=== PATIENT | male | born 1945 | race Caucasian/White ===

== ENCOUNTER 2024-05-10 11:57 | Inpatient (IN) ==
[2024-05-10 12:43] LABS: Basophils # (auto) 0.05 K/uL (0.00-0.20); Basophils % (auto) 0.7 %; Eosinophils % (auto) 7.1 %; Hematocrit (blood only) 46.5 % (42.0-52.0); Hemoglobin 14.9 g/dl (14.0-18.0); Immature Granulocytes # (auto) 0.02 K/uL (0.01-0.20); Immature Granulocytes % (auto) 0.3 %; Lymphocytes # (auto) 1.38 K/uL (1.20-3.40); Lymphocytes % (auto) 19.6 %; Mean Corpuscular Hemoglobin 29.5 pg (25.0-34.0); Mean Corpuscular Volume 92.1 fL (80.0-100.0); Mean Platelet Volume 10.1 fL (9.4-12.4); Monocytes # (auto) 1.27 K/uL (0.11-0.59); Neutrophils # (auto) 3.83 K/uL (1.40-6.50); Neutrophils % (auto) 54.3 %; Platelet Count 183 K/uL (130-400); RDW Coefficient of Variation 14.7 % (11.5-14.5); RDW Standard Deviation 50.4 fL (36.4-46.3); Red Blood Count 5.05 M/uL (4.70-6.10); White Blood Count 7.05 K/ul (4.8-10.8)
--- NOTE | 2024-05-10 12:47 | Emergency Department Note ---
History of Present Illness General Chief complaint: Unable to Void Stated complaint: CONFUSION Time Seen by Provider: 05/10/24 12:24 History of Present Illness This is a 79-year-old male that presents to the emergency department accompanied by daughter referred by palliative medicine with complaints of "confusion". The patient as well as daughter at bedside provide history as well as history obtained through reviewing palliative care visit from earlier today. Patient appears to have increased confusion/altered mental status beginning this past Friday. Daughter notes patient lives alone. He manages his own medicine but she often will check and notes that as of recent there will be medicine that should have been taking that is still in the pillbox but also is concerned that patient may be taking some nighttime medicine during the day and daytime during the night. It was noted that the patient has been saying things to daughter at bedside that the daughter notes normally he would not say. Patient is on oral analgesia noting his underlying cancer and pain. As I was walking to the examination room RN noted that the patient's blood pressure was 80/60 and I presented to bedside and recheck was noted to be 94/66. Patient denies any pain at the present time. Home Medications Medication Instructions Recorded Confirmed Type metoprolol succinate 100 mg 100 mg PO QAM 01/12/24 05/10/24 History tablet,extended release 24 hr polyethylene glycol 3350 17 17 g PO QAM 01/12/24 05/10/24 History gram/dose oral powder tamsulosin 0.4 mg capsule 0.4 mg PO BID 01/12/24 05/10/24 History torsemide 10 mg tablet 10 mg PO DAILY PRN Weight Gain 01/12/24 05/10/24 History tramadol 50 mg tablet 50 mg PO UD PRN Pain 01/12/24 05/10/24 History valsartan 160 mg tablet 80 mg PO BID 01/12/24 05/10/24 History ascorbic acid (vitamin C) 1,000 mg 1 g PO QAM 01/14/24 05/10/24 History tablet (Vitamin C) aspirin 81 mg tablet,delayed 81 mg PO QAM 01/14/24 05/10/24 History release cholecalciferol (vitamin D3) 50 50 mcg PO QAM 01/14/24 05/10/24 History mcg (2,000 unit) capsule (Vitamin D3) metformin 500 mg tablet 500 mg PO BID 01/14/24 05/10/24 History mineral oil-hydrophil petrolat 1 applic topical UD PRN catheter 01/14/24 05/10/24 History topical ointment area oxybutynin chloride 5 mg 5 mg PO DAILY #30 tabs 03/29/24 05/10/24 Rx tablet,extended release 24 hr lidocaine 5 % topical ointment 1 applic topical TID PRN pain #30 04/02/24 05/10/24 Rx grams oxycodone 10 mg tablet,crush 10 mg PO Q12H cancer pain 1 month 04/29/24 05/10/24 Rx resistant,extended release 12 hr #60 tabs (OxyContin) oxycodone 5 mg tablet 5 mg PO .Q4-6H PRN Pain 05/10/24 05/10/24 History Allergies Allergy/AdvReac Type Severity Reaction Status Date / Time carvedilol [From Coreg] Allergy Unknown pt not sure Verified 03/26/24 07:05 ezetimibe [From Zetia] Allergy Unknown muscle Verified 03/26/24 07:05 aches fluvastatin Allergy Unknown muscle Verified 03/26/24 07:05 aches gemfibrozil Allergy Unknown muscle Verified 03/26/24 07:05 aches pravastatin Allergy Unknown muscle Verified 03/26/24 07:05 aches simvastatin Allergy Unknown muscle Verified 03/26/24 07:05 aches sulfamethoxazole Allergy Unknown pt not sure Verified 03/26/24 07:05 [From Bactrim] trimethoprim [From Bactrim] Allergy Unknown pt not sure Verified 03/26/24 07:05 Past Med/Surg History Problem List (Updated 05/10/24 @ 21:42 by Ahmet Kearns PA-C) DM2 (diabetes mellitus, type 2) UTI (urinary tract infection) (Acute) Confusion (Acute) Palliative care by specialist Cancer related pain 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 Inguinal lymphadenopathy Penile cancer Cancer Urethral stricture Medical History History of pulmonary embolism Hx MRSA infection (12/2023) foot ulcers, treated w/ Vanco at [facility] Hx of sepsis (01/18/24) admitted at [facility] w/ sepsis from foot ulcers Hx of diabetic foot ulcer (12/2023) right and left big toe; in process of healing, seeing [facility] wound clinic Cirrhosis 12/17/2023 Ischemic cardiomyopathy patient declines ICD, follows with [facility] Diabetes mellitus NIDDM History of COVID-19 (~2021) Neuropathy Hospice care patient for past 2 yrs. Kidney disease unknown details Ulloa catheter in place History of UTI multiple Penile cancer dx 2021 Sleep apnea suspected/sleep study yrs ago/oxygen recommended pt declined. Shortness of breath mostly at night. Poor historian Coronary artery disease 1997: LAD 70, LCX OK, RCA 90, failed balloon angioplasty; NSTEMI 2017, patient declined cath; per [facility] records History of AR (myocardial infarction) 4 or 5/last one a few yrs ago. Surgical History History of eyelid surgery History of urologic surgery multiple on penis. most recent in office procedure december 2023. History of cardiac cath hx x 1 attempted/unsuccessful. sx was recommended "told never would live through it" Social History Smoking Status: Former smoker Second Hand Exposure: No; Do You Dip or Chew Tobacco: No; Hx Alcohol Use: No Hx Substance Use: No Preferred Language: Cook Islander Communication Ability: Effective Data Center Consultant Required: No Beliefs That Will Affect Care: None Current Living Situation: Alone Other Information That Helps Us Care for You: No Feels Safe at Home: Yes Safety Concerns: Feels Safe At This Time Assistive Devices: Cane, Denture - Upper, Denture - Lower and Glasses Review of Systems A total of 10 systems reviewed and were otherwise negative Physical Exam Vital Signs Vital Signs - 24 hr 05/10/24 11:59 05/10/24 12:24 05/10/24 12:36 Temperature 36.3 C L Temperature Source Temporal Artery Scan Pulse Rate 84 62 Pulse Rate [Apical] Pulse Rate from SpO2 Sensor 61 Pulse Rhythm Regular Pulse Rhythm [Apical] Pulse Strength Normal Pulse Strength [Apical] Respiratory Rate 20 19 Respiratory Effort / Characteristics Non-Labored Spontaneous Respiratory Depth Normal Respiratory Pattern Blood Pressure 94/35 L 85/70 L 126/60 Blood Pressure [Left Arm] Blood Pressure Mean 54 74 82 Blood Pressure Mean [Left Arm] Blood Pressure Position [Left Arm] Pulse Oximetry 95 95 Oxygen Delivery Method Room Air Room Air Sepsis Recent Fever Within 48 Hours No Sepsis New/Unexplained Change in Mental Status N/A Sepsis Action Taken by Nursing No Action Required 05/10/24 12:45 05/10/24 12:49 05/10/24 12:50 Temperature Temperature Source Pulse Rate 67 67 70 Pulse Rate [Apical] Pulse Rate from SpO2 Sensor 69 Pulse Rhythm Irregular Pulse Rhythm [Apical] Pulse Strength Pulse Strength [Apical] Respiratory Rate 24 16 Respiratory Effort / Characteristics Respiratory Depth Respiratory Pattern Blood Pressure 94/66 L Blood Pressure [Left Arm] Blood Pressure Mean 75 Blood Pressure Mean [Left Arm] Blood Pressure Position [Left Arm] Pulse Oximetry 93 93 Oxygen Delivery Method Room Air Room Air Sepsis Recent Fever Within 48 Hours Sepsis New/Unexplained Change in Mental Status Sepsis Action Taken by Nursing 05/10/24 13:33 05/10/24 13:45 05/10/24 14:41 Temperature Temperature Source Pulse Rate 68 62 Pulse Rate [Apical] 65 Pulse Rate from SpO2 Sensor 73 67 Pulse Rhythm Pulse Rhythm [Apical] Irregular Pulse Strength Pulse Strength [Apical] Normal Respiratory Rate 21 24 16 Respiratory Effort / Characteristics Non-Labored Spontaneous Respiratory Depth Normal Respiratory Pattern Regular Blood Pressure 108/72 120/73 Blood Pressure [Left Arm] 115/81 Blood Pressure Mean 84 88 Blood Pressure Mean [Left Arm] 92 Blood Pressure Position [Left Arm] Sitting Pulse Oximetry 94 95 98 Oxygen Delivery Method Room Air Room Air Room Air Sepsis Recent Fever Within 48 Hours Sepsis New/Unexplained Change in Mental Status Sepsis Action Taken by Nursing 05/10/24 16:33 Temperature Temperature Source Pulse Rate Pulse Rate [Apical] 83 Pulse Rate from SpO2 Sensor Pulse Rhythm Pulse Rhythm [Apical] Pulse Strength Pulse Strength [Apical] Respiratory Rate 18 Respiratory Effort / Characteristics Non-Labored Respiratory Depth Normal Respiratory Pattern Regular Blood Pressure Blood Pressure [Left Arm] 128/74 Blood Pressure Mean Blood Pressure Mean [Left Arm] 92 Blood Pressure Position [Left Arm] Pulse Oximetry 98 Oxygen Delivery Method Room Air Sepsis Recent Fever Within 48 Hours Sepsis New/Unexplained Change in Mental Status Sepsis Action Taken by Nursing VITAL SIGNS - Vital signs and nursing notes were reviewed. Borderline low BP, otherwise stable. GENERAL - 79-year-old male appearing his stated age who is in no acute distress. Communicates well with provider and answers questions appropriately. SKIN - Without rashes. HEAD - NC/AT. EYES - PERRL with EOMI bilaterally. Sclera anicteric. EARS - No deformities of external structures noted on gross examination bilaterally. NOSE - Midline and without cyanosis. No epistaxis or purulent drainage noted. MOUTH/OROPHARYNX - Without perioral cyanosis. NECK - Neck with FROM. No nuchal rigidity. LUNGS - Chest wall symmetric without accessory muscle use, intercostals retractions, or central cyanosis. Normal vesicular breath sounds CTA B/L. No wheezes, rales, or rhonchi appreciated. CARDIAC - IRR ABDOMEN - Abdominal contour normal without pulsations or visible masses. BS normoactive all four quadrants. No tenderness, palpable masses, hepatosplenomegaly, or ascites noted. Suprapubic catheter noted with a small amount of purulence at the insertion site. EXTREMITIES - No clubbing or peripheral cyanosis. +5/5 strength noted in UE/LE bilaterally. NEUROLOGIC - Cranial nerves II through XII grossly intact. PSYCH - A&O, and cooperates fully with examiner. Pt is very pleasant and interacts well with examiner. Course Administered Medications Heparin Sodium (Porcine) (Heparin Sod 5,000 Unit/0.5 Ml Vial) 5,000 units SQ Q12 BERENICE Stop: 06/09/24 20:59 Last Admin: 05/10/24 20:56 Dose: 5,000 units Documented By: HERMILA Insulin Aspart (Insulin Aspart Per Unit Charge) 0 units SC ACHS BERENICE Stop: 06/09/24 16:29 Last Admin: 05/10/24 20:56 Dose: Not Given Documented By: Admin: 05/10/24 19:02 Dose: Not Given Documented By: RRR Lidocaine (Lidocaine 5% Oint 30 Gm Tube) 1 appln TOP TID PRN PRN Reason: pain Stop: 06/09/24 18:44 Last Admin: 05/10/24 21:10 Dose: 1 appln Documented By: HERMILA Oxycodone HCl (Oxycodone Hcl 10 Mg Tabcr (Oxycontin)) 10 mg PO Q12H BERENICE Stop: 05/24/24 20:59 Last Admin: 05/10/24 21:06 Dose: 10 mg Documented By: DN Tamsulosin HCl (Tamsulosin Hcl 0.4 Mg Cap) 0.4 mg PO BID BERENICE Stop: 06/09/24 20:59 Last Admin: 05/10/24 20:57 Dose: 0.4 mg Documented By: DN Discontinued Medications Sodium Chloride (Nss) 1,000 mls @ 500 mls/hr IV .Q2H BERENICE Stop: 05/10/24 14:59 Last Infusion: 05/10/24 14:57 Dose: Infused Documented By: Admin: 05/10/24 12:56 Dose: 500 mls/hr Documented By: CHAPIS Cefepime HCl (Maxipime) 2,000 mg in 20 mls @ 5 mls/min IV NOW STA; Protocol Stop: 05/10/24 14:47 Last Admin: 05/10/24 14:50 Dose: 5 mls/min Documented By: JILLIAN Vancomycin HCl 2,250 mg/ (Sodium Chloride) 545 mls @ 200 mls/hr IV NOW ONE Stop: 05/10/24 21:28 Last Admin: 05/10/24 20:57 Dose: 200 mls/hr Documented By: HERMILA Medical Decision Making Laboratory Data 05/10/24 12:14 05/10/24 12:14 Lab Results 05/10/24 05/10/24 05/10/24 Range/Units 12:14 12:53 12:57 WBC 7.05 (4.8-10.8) K/ul RBC 5.05 (4.70-6.10) M/uL Hgb 14.9 (14.0-18.0) g/dl Hct 46.5 (42.0-52.0) % MCV 92.1 (80.0-100.0) fL MCH 29.5 (25.0-34.0) pg MCHC 32.0 (32.0-36.0) g/dL RDW Std Deviation 50.4 H (36.4-46.3) fL RDW Coeff of Manuel 14.7 H (11.5-14.5) % Plt Count 183 (130-400) K/uL MPV 10.1 (9.4-12.4) fL Immature Gran % (Auto) 0.3 % Neut % (Auto) 54.3 % Lymph % (Auto) 19.6 % [place] % (Auto) 18.0 % Eos % (Auto) 7.1 % Baso % (Auto) 0.7 % Neut # (Auto) 3.83 (1.40-6.50) K/uL Lymph # (Auto) 1.38 (1.20-3.40) K/uL [place] # (Auto) 1.27 H (0.11-0.59) K/uL Eos # (Auto) 0.50 (0.00-0.50) K/uL Baso # (Auto) 0.05 (0.00-0.20) K/uL Immature Gran # (Auto) 0.02 (0.01-0.20) K/uL PT 11.4 (9.0-12.0) Seconds INR 1.1 (0.9-1.1) APTT 26 (21-31) Seconds PTT Ratio 1.0 Sodium 140 (136-145) mmol/L Potassium 4.1 (3.5-5.1) mmol/L Chloride 102 (98-107) mmol/L Carbon Dioxide 31 (21-32) mmol/L Anion Gap 7 (3-11) BUN 35 H (6-23) mg/dl Creatinine 1.71 H (0.6-1.4) mg/dl Est Cr Clr Drug Dosing Not Reportable Est GFR ( Amer) 43.2 ml/min Est GFR (Non-Af Amer) 37.3 ml/min BUN/Creatinine Ratio 20.5 H (10-20) Glucose 108 H (70-99(Fasting)) mg/dl POC Glucose (70-99) mg/dl Lactate 1.1 (0.4-2.0) mmol/L Calcium 10.6 H (8.6-10.3) mg/dl Magnesium 2.1 (1.7-2.4) mg/dl Total Bilirubin 0.9 (0.2-1.0) mg/dl AST 62 H (13-39) U/L ALT 68 H (7-52) U/L Alkaline Phosphatase 59 (34-104) U/L Troponin I High Sens 9.8 (0-20) pg/ml Total Protein 8.0 (6.0-8.3) gm/dl Albumin 4.2 (3.4-5.0) gm/dl Globulin 3.8 (2.5-4.0) gm/dl Albumin/Globulin Ratio 1.1 (0.9-2) Procalcitonin 0.16 (0-0.5) ng/ml Urine Color Urine Appearance (Clear) Urine pH (4.5-7.5) Ur Specific [place] (1.000-1.030) Urine Protein (Negative) Urine Glucose (UA) (Negative) Urine Ketones (Negative) Urine Blood (Negative) Urine Nitrite (Negative) Urine Bilirubin (Negative) Urine Urobilinogen (Negative) Ur Leukocyte Esterase (Negative) Urine WBC (Auto) (0-5) /hpf Urine RBC (Auto) (0-2) /hpf U Hyaline Cast (Auto) (0-2) /lpf U Epithel Cells (Auto) (0-2) /hpf Urine Bacteria (Auto) (None Seen) Amorphous Sediment (None Prsent) Adenovirus (PCR) Not Detected (NotDetected) B. pertussis DNA (PCR) Not Detected (NotDetected) B.parapertussis DNA PCR Not Detected (NotDetected) C. pneumoniae DNA (PCR) Not Detected (NotDetected) Coronavirus OC43 (PCR) Not Detected (NotDetected) Coronavirus HKU1 (PCR) Not Detected (NotDetected) Coronavirus 229E (PCR) Not Detected (NotDetected) SARS-CoV-2 (PCR) Not Detected (NotDetected) Coronavirus NL63 (PCR) Not Detected (NotDetected) Human Metapneumovir PCR Not Detected (NotDetected) Influenza Type A (PCR) Not Detected (NotDetected) Influenza Type B (PCR) Not Detected (NotDetected) M. pneumoniae (PCR) Not Detected (NotDetected) Parainfluenza 1 (PCR) Not Detected (NotDetected) Parainfluenza 2 (PCR) Not Detected (NotDetected) Parainfluenza 3 (PCR) Not Detected (NotDetected) Parainfluenza 4 (PCR) Not Detected (NotDetected) RSV (PCR) Not Detected (NotDetected) Entero/Rhino (PCR) Not Detected (NotDetected) 05/10/24 05/10/24 Range/Units 13:40 16:12 WBC (4.8-10.8) K/ul RBC (4.70-6.10) M/uL Hgb (14.0-18.0) g/dl Hct (42.0-52.0) % MCV (80.0-100.0) fL MCH (25.0-34.0) pg MCHC (32.0-36.0) g/dL RDW Std Deviation (36.4-46.3) fL RDW Coeff of Manuel (11.5-14.5) % Plt Count (130-400) K/uL MPV (9.4-12.4) fL Immature Gran % (Auto) % Neut % (Auto) % Lymph % (Auto) % [place] % (Auto) % Eos % (Auto) % Baso % (Auto) % Neut # (Auto) (1.40-6.50) K/uL Lymph # (Auto) (1.20-3.40) K/uL [place] # (Auto) (0.11-0.59) K/uL Eos # (Auto) (0.00-0.50) K/uL Baso # (Auto) (0.00-0.20) K/uL Immature Gran # (Auto) (0.01-0.20) K/uL PT (9.0-12.0) Seconds INR (0.9-1.1) APTT (21-31) Seconds PTT Ratio Sodium (136-145) mmol/L Potassium (3.5-5.1) mmol/L Chloride (98-107) mmol/L Carbon Dioxide (21-32) mmol/L Anion Gap (3-11) BUN (6-23) mg/dl Creatinine (0.6-1.4) mg/dl Est Cr Clr Drug Dosing Est GFR ( Amer) ml/min Est GFR (Non-Af Amer) ml/min BUN/Creatinine Ratio (10-20) Glucose (70-99(Fasting)) mg/dl POC Glucose 87 (70-99) mg/dl Lactate (0.4-2.0) mmol/L Calcium (8.6-10.3) mg/dl Magnesium (1.7-2.4) mg/dl Total Bilirubin (0.2-1.0) mg/dl AST (13-39) U/L ALT (7-52) U/L Alkaline Phosphatase (34-104) U/L Troponin I High Sens (0-20) pg/ml Total Protein (6.0-8.3) gm/dl Albumin (3.4-5.0) gm/dl Globulin (2.5-4.0) gm/dl Albumin/Globulin Ratio (0.9-2) Procalcitonin (0-0.5) ng/ml Urine Color Dark Yellow Urine Appearance Turbid A (Clear) Urine pH 5.5 (4.5-7.5) Ur Specific [place] 1.024 (1.000-1.030) Urine Protein 1+ H (Negative) Urine Glucose (UA) Negative (Negative) Urine Ketones Trace H (Negative) Urine Blood Negative (Negative) Urine Nitrite Negative (Negative) Urine Bilirubin Negative (Negative) Urine Urobilinogen Negative (Negative) Ur Leukocyte Esterase 2+ H (Negative) Urine WBC (Auto) 21-50 H (0-5) /hpf Urine RBC (Auto) 11-20 H (0-2) /hpf U Hyaline Cast (Auto) 6-10 H (0-2) /lpf U Epithel Cells (Auto) 3-5 H (0-2) /hpf Urine Bacteria (Auto) None Seen (None Seen) Amorphous Sediment Present A (None Prsent) Adenovirus (PCR) (NotDetected) B. pertussis DNA (PCR) (NotDetected) B.parapertussis DNA PCR (NotDetected) C. pneumoniae DNA (PCR) (NotDetected) Coronavirus OC43 (PCR) (NotDetected) Coronavirus HKU1 (PCR) (NotDetected) Coronavirus 229E (PCR) (NotDetected) SARS-CoV-2 (PCR) (NotDetected) Coronavirus NL63 (PCR) (NotDetected) Human Metapneumovir PCR (NotDetected) Influenza Type A (PCR) (NotDetected) Influenza Type B (PCR) (NotDetected) M. pneumoniae (PCR) (NotDetected) Parainfluenza 1 (PCR) (NotDetected) Parainfluenza 2 (PCR) (NotDetected) Parainfluenza 3 (PCR) (NotDetected) Parainfluenza 4 (PCR) (NotDetected) RSV (PCR) (NotDetected) Entero/Rhino (PCR) (NotDetected) Imaging Data Radiologist's Impression: Chest X-Ray 05/10/24 12:45 SINGLE VIEW CHEST CLINICAL HISTORY: Sepsis FINDINGS: 2 AP, portable, upright chest radiographs are correlated with chest CT dated 03/23/2024. The heart is enlarged. There is pulmonary vascular congestion. Emphysema and chronic interstitial thickening is previous. There is bibasilar scarring/atelectasis. No airspace consolidation or large pleural effusion is identified. No pneumothorax is seen. The skeletal structures are osteopenic. The bony thorax is grossly intact. Arthritic change is noted in the shoulders. IMPRESSION: Cardiomegaly and emphysema with pulmonary vascular congestion. ACT 112: Negative or not required by law. Electronically signed by: Db Feliciano M.D. 05/10/2024 1:[address] 05/10/24 12:45 CT SCAN OF THE BRAIN WITHOUT IV CONTRAST CLINICAL HISTORY: Change in mental status. COMPARISON STUDY: No priors. TECHNIQUE: Unenhanced axial CT scan of the brain is performed from the vertex to the skull base. A dose lowering technique was utilized adhering to the principles of ALARA. The patient was scanned twice due to motion artifact. CT DOSE: 1250.21 mGy.cm FINDINGS: Brain parenchyma: There is age-related involutional change noting mild subcortical and periventricular microangiopathic disease. There is no hemorrhage, mass effect, or evidence of acute territorial ischemia by CT criteria. Davis-white matter differentiation is preserved. No extra-axial fluid collection is seen. Ventricles, sulci, cisterns: Prominent secondary to involutional change. Intracranial vasculature: There is atherosclerotic calcification of the cavernous carotid arteries. Calvarium: Unremarkable. Sinuses and mastoids: The visualized paranasal sinuses are clear. The mastoid air cells are well pneumatized. Orbits: The bony orbits are grossly intact. IMPRESSION: There is no hemorrhage, mass effect, or evidence of acute territorial ischemia by CT criteria. ACT 112: Negative or not required by law. Electronically signed by: Db Feliciano M.D. 05/10/2024 2:15 PM MDM Narrative Patient was seen and evaluated as above. Review was performed of nursing notes and vital signs. I did review pertinent previous outpt visits/procedures and patient history. After obtaining a thorough history and physical examination the above work up was performed. Patient presents today for evaluation of altered medical status referred by palliative medicine office. Daughter is at bedside and provides the history. Since this past Friday, the patient seems to not be himself. Daughter notes that he seems to be confused and is making comments to her that he would not normally make. The patient does have a superpubic catheter. Inspection of the area does reveal a small amount of purulence at the insertion site, but otherwise appears to be intact. The urine bag is collecting urine. Daughter notes the bag was emptied earlier today and is collecting urine. There is no blood visible in the urine bag. No obvious prevalence in the urine collection bag. The patient is alert, oriented but is hard of hearing. The patient work up here today does reveal: No leukocytosis or concerning anemia. CR 1.7 and a bit above the patient's baseline. Transaminitis noted which is similar to previous. The high sensitivity troponin was within normal range. Pro calcitonin mildly detectable, but still with a normal range at .16. UA does findings concerning for possible infection However, similar appearance could be in the setting of chronic contamination/colonization. BioFire upbioFire upper respiratory panel was negative. Chest x-ray per my interpretation reveals cardiomegaly. Pulmonary vascular congestion noted with radiology report is as above. Additionally CT scan of the head was performed and was negative for acute process. At this time noting the concern for infection with hypotension on arrival I do believe that further evaluation and management in the inpatient setting is warranted. A bolus 1 L of IV fluids was ordered at a rate of 500 mL/h on initial assessment noting the patient's hypotension in the setting of likely infectious etiology however will not exceed this at least at the present time noting the patient's history of ischemic cardiomyopathy with low EF and pulmonary vascular congestion noted on chest x-ray. The fluids provided here did seem to improve the patient's blood pressure. IV cefepime was ordered to cover for urinary tract infection. Case discussed with the hospitalist. Please refer to further documentation regarding his stay. GCS: 15 In the evaluation and treatment of this patient the following differential diagnoses were entertained: Sepsis, UTI, pylonephritis, electrolyte disturbance, dehydration, among others. Impression & Plan UTI (urinary tract infection), Confusion Discharge Plan Visit Data Chief Complaint: Unable to Void Stated Complaint: CONFUSION ED Provider: Juno Tyson ED Midlevel Provider: Ahmet Kearns Discharge Problem: UTI (urinary tract infection), Confusion Patient Disposition: Admitted As Inpatient Condition: Good Discharge Instructions Interventions: ED Discharge Assessment Last Done: 05/10/24 17:10
[2024-05-10] MEDS: SODIUM CHLORIDE 0.9% 1,000 ML IV SCH (12:56)
[2024-05-10 13:07] LABS: Alanine Aminotransferase 68 U/L (7-52); Albumin Globulin Ratio 1.1 (0.9-2); Albumin Level 4.2 gm/dl (3.4-5.0); Alkaline Phosphatase 59 U/L (34-104); Anion Gap 7 (3-11); Aspartate Aminotransferase 62 U/L (13-39); BUN Creatinine Ratio 20.5 (10-20); Bilirubin,Total 0.9 mg/dl (0.2-1.0); Blood Urea Nitrogen 35 mg/dl (6-23); Calcium 10.6 mg/dl (8.6-10.3); Carbon Dioxide 31 mmol/L (21-32); Chloride 102 mmol/L (98-107); Est GFR (African American) 43.2 ml/min; Est GFR (Non-African American) 37.3 ml/min; Globulin 3.8 gm/dl (2.5-4.0); Glucose 108 mg/dl (70-99(Fasting)); Potassium 4.1 mmol/L (3.5-5.1); Sodium 140 mmol/L (136-145)
--- NOTE | 2024-05-10 13:20 | XRay Report ---
SINGLE VIEW CHEST CLINICAL HISTORY: Sepsis FINDINGS: 2 AP, portable, upright chest radiographs are correlated with chest CT dated 03/23/2024. The heart is enlarged. There is pulmonary vascular congestion. Emphysema and chronic interstitial thicken ing is previous. There is bibasilar scarring/atelectasis. No airspace consolidation or large pleural effusion is identified. No pneumothorax is seen. The skeletal structures are osteopenic. The bony tho rax is grossly intact. Arthritic change is noted in the shoulders. IMPRESSION: Cardiomegaly and emphysema with pulmonary vascular congestion. ACT 112: Negative or not required by law. Electronically signed by: Db Feliciano M.D. 05/10/2024 1:19 PM
[2024-05-10 13:27] LABS: INR 1.1 (0.9-1.1); Partial Thromboplastin Time 26 Seconds (21-31); Prothrombin Time 11.4 Seconds (9.0-12.0)
[2024-05-10 13:52] LABS: Magnesium 2.1 mg/dl (1.7-2.4)
[2024-05-10 13:59] LABS: Appearance Urine Turbid (Clear); Bacteria Urine Automated None Seen (None Seen); Bilirubin Urine Negative (Negative); Blood Urine Negative (Negative); Color Urine Dark Yellow; Glucose Urine UA Negative (Negative); Ketones Urine Trace (Negative); Leukocyte Esterase Urine 2+ (Negative); Nitrite Urine Negative (Negative); Protein Urine 1+ (Negative); Specific Gravity Urine 1.024 (1.000-1.030); Urobilinogen Urine Negative (Negative); WBC Urine Automated 21-50 /hpf (0-5); pH Urine 5.5 (4.5-7.5)
[2024-05-10 14:00] LABS: Adenovirus PCR Not Detected (NotDetected); Bordetella parapertussis PCR Not Detected (NotDetected); Bordetella pertussis PCR Not Detected (NotDetected); Chlamydia pneumoniae PCR Not Detected (NotDetected); Coronavirus 229E PCR Not Detected (NotDetected); Coronavirus CoV-2 (COVID19)PCR Not Detected (NotDetected); Coronavirus HKU1 PCR Not Detected (NotDetected); Coronavirus NL63 PCR Not Detected (NotDetected); Coronavirus OC43PCR Not Detected (NotDetected); Human Metapneumovirus PCR Not Detected (NotDetected); Influenza A PCR Not Detected (NotDetected); Influenza B PCR Not Detected (NotDetected); Mycoplasma pneumoniae PCR Not Detected (NotDetected); Parainfluenza Virus 1 PCR Not Detected (NotDetected); Parainfluenza Virus 2 PCR Not Detected (NotDetected); Parainfluenza Virus 3 PCR Not Detected (NotDetected); Parainfluenza Virus 4 PCR Not Detected (NotDetected); Respiratory Syncytial VirusPCR Not Detected (NotDetected); Rhinovirus/Enterovirus PCR Not Detected (NotDetected)
[2024-05-10 14:00] LABS: Troponin I High Sensitivity 9.8 pg/ml (0-20)
--- NOTE | 2024-05-10 14:16 | CT Scan Report ---
CT SCAN OF THE BRAIN WITHOUT IV CONTRAST CLINICAL HISTORY: Change in mental status. COMPARISON STUDY: No priors. TECHNIQUE: Unenhanced axial CT scan of the brain is performed from the vertex to the skull base. A do se lowering technique was utilized adhering to the principles of ALARA. The patient was scanned twice due to motion artifact. CT DOSE: 1250.21 mGy.cm FINDINGS: Brain parenchyma: There is age-related involutional change noting mild subcortical and periventricula r microangiopathic disease. There is no hemorrhage, mass effect, or evidence of acute territorial isc hemia by CT criteria. Davis-white matter differentiation is preserved. No extra-axial fluid collection is seen. Ventricles, sulci, cisterns: Prominent secondary to involutional change. Intracranial vasculature: There is atherosclerotic calcification of the cavernous carotid arteries. Calvarium: Unremarkable. Sinuses and mastoids: The visualized paranasal sinuses are clear. The mastoid air cells are well pneu matized. Orbits: The bony orbits are grossly intact. IMPRESSION: There is no hemorrhage, mass effect, or evidence of acute territorial ischemia by CT jimena mixon. ACT 112: Negative or not required by law. Electronically signed by: Db Feliciano M.D. 05/10/2024 2:15 PM
[2024-05-10 14:17] LABS: Amorphous Sediment Urine Present (None Prsent)
[2024-05-10] MEDS: CEFEPIME 2,000 MG/20 ML VIAL IV STA (14:50)
--- NOTE | 2024-05-10 15:05 | History & Physical Report ---
Date of Service May 10, 2024 Assessment & Plan (1) Confusion: Plan: Altered mental status, ? Acute on chronic due to UTI Infected appearing UA. Follow culture Admitted on cefepime. Past history of MRSA positive, pending culture results will add vancomycin No hypoxia - CT-H: Is without evidence of hemorrhage, mass effect, or ischemia. No obvious mets. If concern for brain mets rises can follow-up with MRI Does not appear septic. Procalcitonin is normal. No leukocytosis. Lactate is normal Cautious fluids due to underlying severe ischemic cardiomyopathy with EF less than 35% Has a history of MRSA infections of the plantar hallux in both feet, on assessment does not have active erythema/warm/tenderness/discharge to suggest active infection at time of admission Some concern for confusing his medications at home. Blood pressure has norm alized on admission. Remains confused, but does not appear sedated/hypotensive/narcotized. Will resume typical medications in the morning although hold valsartan for BHUPENDRA and torsemide for BHUPENDRA. 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 Keytruda transaminitis. Held BMP trended Continue oxycodone every 12 hours as needed for cancer pain, breakthrough oxycodone 5 mg every 6 hours as needed. Pain is adequately controlled at bedside. Narcotic changes could be contributing to confusion however does not appear narcotize, has ongoing cancer pain, and it is reasonable to continue treating this while other etiologies of his confusion are treated/assessed (4) Ischemic cardiomyopathy: Plan: Ischemic cardiomyopathy, history of CAD With echo 2022 with EF 30-35% Torsemide temporarily held for suspected infection and BHUPENDRA Valsartan temporarily held for BHUPENDRA Continue metoprolol Continue aspirin (5) DM2 (diabetes mellitus, type 2): Plan: DM2 Metformin held, sliding scale with basal while inpatient Goal BSG [id number] She is not hypoglycemic on admission Plan DVT prophylaxis: Heparin Diet: Type II DM Disposition: Medical telemetry CODE STATUS: DNR/DNI History of Present Illness Primary Care Provider: NOLAN Smiley is a 79-year-old male with a past medical history of malignant neoplasm of the penis with multiple sites of mets including lymph node following with palliative care who presents for increased confusion Seen with daughter at bedside Increasing confusion over the last several days. Has had darkened urine output in his suprapubic catheter. Lives alone, and seems much more confused than this is normal. Has been on oxycodone long-acting every 12 hours and breakthrough oxycodone. Does not appear narcotize at the bedside but is very confused. Denies fever, chills, sweats. Endorses some chronic penile discomfort due to his cancer. They are pursuing chemotherapy with Keytruda, next infusion was due to be Friday. He denies fever, chills. Denies chest pain or shortness of breath. Endorses fatigue. No vision change. No hearing change. No focal extremity weakness Medical History: Reviewed Medications: Reviewed Surgical History: Reviewed Family history: Reviewed Allergies: Reviewed Social History: Reviewed Code Status: DNR/DNI Allergies Allergy/AdvReac Type Severity Reaction Status Date / Time carvedilol [From Coreg] Allergy Unknown pt not sure Verified 03/26/24 07:05 ezetimibe [From Zetia] Allergy Unknown muscle Verified 03/26/24 07:05 aches fluvastatin Allergy Unknown muscle Verified 03/26/24 07:05 aches gemfibrozil Allergy Unknown muscle Verified 03/26/24 07:05 aches pravastatin Allergy Unknown muscle Verified 03/26/24 07:05 aches simvastatin Allergy Unknown muscle Verified 03/26/24 07:05 aches sulfamethoxazole Allergy Unknown pt not sure Verified 03/26/24 07:05 [From Bactrim] trimethoprim [From Bactrim] Allergy Unknown pt not sure Verified 03/26/24 07:05 Home Medications Medication Instructions Recorded Confirmed Type metoprolol succinate 100 mg 100 mg PO QAM 01/12/24 05/10/24 History tablet,extended release 24 hr polyethylene glycol 3350 17 17 g PO QAM 01/12/24 05/10/24 History gram/dose oral powder tamsulosin 0.4 mg capsule 0.4 mg PO BID 01/12/24 05/10/24 History torsemide 10 mg tablet 10 mg PO DAILY PRN Weight Gain 01/12/24 05/10/24 History tramadol 50 mg tablet 50 mg PO UD PRN Pain 01/12/24 05/10/24 History valsartan 160 mg tablet 80 mg PO BID 01/12/24 05/10/24 History ascorbic acid (vitamin C) 1,000 mg 1 g PO QAM 01/14/24 05/10/24 History tablet (Vitamin C) aspirin 81 mg tablet,delayed 81 mg PO QAM 01/14/24 05/10/24 History release cholecalciferol (vitamin D3) 50 50 mcg PO QAM 01/14/24 05/10/24 History mcg (2,000 unit) capsule (Vitamin D3) metformin 500 mg tablet 500 mg PO BID 01/14/24 05/10/24 History mineral oil-hydrophil petrolat 1 applic topical UD PRN catheter 01/14/24 05/10/24 History topical ointment area oxybutynin chloride 5 mg 5 mg PO DAILY #30 tabs 03/29/24 05/10/24 Rx tablet,extended release 24 hr lidocaine 5 % topical ointment 1 applic topical TID PRN pain #30 04/02/24 05/10/24 Rx grams oxycodone 10 mg tablet,crush 10 mg PO Q12H cancer pain 1 month 04/29/24 05/10/24 Rx resistant,extended release 12 hr #60 tabs (OxyContin) oxycodone 5 mg tablet 5 mg PO .Q4-6H PRN Pain 05/10/24 05/10/24 History Past Med/Surg History Problem List (Updated 05/10/24 @ 15:41 by Colt Estrada MD) DM2 (diabetes mellitus, type 2) UTI (urinary tract infection) Confusion Palliative care by specialist Cancer related pain 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 Inguinal lymphadenopathy Penile cancer Cancer Urethral stricture Medical History History of pulmonary embolism Hx MRSA infection (12/2023) foot ulcers, treated w/ Vanco at [facility] Hx of sepsis (01/18/24) admitted at [facility] w/ sepsis from foot ulcers Hx of diabetic foot ulcer (12/2023) right and left big toe; in process of healing, seeing [facility] wound clinic Cirrhosis 12/17/2023 Ischemic cardiomyopathy patient declines ICD, follows with [facility] Diabetes mellitus NIDDM History of COVID-19 (~2021) Neuropathy Hospice care patient for past 2 yrs. Kidney disease unknown details Ull[place] catheter in place History of UTI multiple Penile cancer dx 2021 Sleep apnea suspected/sleep study yrs ago/oxygen recommended pt declined. Shortness of breath mostly at night. Poor historian Coronary artery disease 1998: LAD 70, LCX [place], RCA 90, failed balloon angioplasty; NSTEMI 2017, patient declined cath; per [facility] records History of MS (myocardial infarction) 4 or 5/last one a few yrs ago. Surgical History History of eyelid surgery History of urologic surgery multiple on penis. most recent in office procedure december 2023. History of cardiac cath hx x 1 attempted/unsuccessful. sx was recommended "told never would live through it" Social History Smoking Status: Never smoker Second Hand Exposure: No; Do You Dip or Chew Tobacco: No; Hx Alcohol Use: No Hx Substance Use: No Preferred Language: Portuguese Communication Ability: Effective Hearings Reporter Required: No Beliefs That Will Affect Care: None Current Living Situation: Alone Feels Safe at Home: Yes Assistive Devices: Cane, Denture - Upper, Denture - Lower, Glasses, Hearing Aid - Bilateral and Other Physical Exam Physical Exam: General: Oriented to name and "hospital ". Nontoxic HEENT: Atraumatic, normocephalic. Vision and hearing grossly intact Pulm: CTAB A&P. -wheezes, -rales, -rhonchi. Symmetrical chest rise. No increased work of breathing. No respiratory distress. No JVD Cardiac: RRR, -mrg. Radial pulses intact and symmetrical. Abdominal: Suprapubic catheter in place draining to leg bag, dark yellow. No surrounding erythema at suprapubic site Extremities: Plantar hallux bilaterally with superficial ulcer without discharge, warmth, erythema, tenderness. No lower extremity edema is present. Results & Data Results & Data Vital Signs (Past 12 Hours) Vital Signs Temp Pulse Pulse Resp BP BP Pulse Ox 05/10/24 14:41 65 16 115/81 98 05/10/24 13:45 62 24 120/73 95 05/10/24 13:33 68 21 108/72 94 05/10/24 12:50 70 05/10/24 12:49 67 16 93 05/10/24 12:45 67 24 94/66 L 93 05/10/24 12:36 62 19 126/60 95 05/10/24 12:24 85/70 L 05/10/24 11:59 36.3 C L 84 20 94/35 L 95 O2 Del Method 05/10/24 14:41 Room Air 05/10/24 13:45 Room Air 05/10/24 13:33 Room Air 05/10/24 12:50 05/10/24 12:49 Room Air 05/10/24 12:45 Room Air 05/10/24 12:36 Room Air 05/10/24 12:24 05/10/24 11:59 Room Air PG Care Time/CCT Total # of Minutes Spent Total Time Spent with Patient: Total time spent is greater than 50% in coordination of care (as documented) at patient's floor/unit and/or counseling patient: Coding Level of Care Code 12530 INT INP/OBS CARE 3/75MIN Diagnoses Confusion R41.0 UTI (urinary tract infection) N39.0 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
--- NOTE | 2024-05-10 15:29 | Electrocardiogram Report ---
Test Reason : Blood Pressure : */* mmHG Vent. Rate : 76 BPM Atrial Rate : * BPM P-R Int : * ms QRS Dur : 166 ms QT Int : 438 ms P-R-T Axes : * -84 76 degrees QTcB Int : 492 ms Atrial fibrillation with premature ventricular or aberrantly conducted complexes Left anterior fascicular block Non-specific intra-ventricular conduction block Possible Old Anterolateral infarct Abnormal ECG No previous ECGs available Confirmed by Nick Cohen ([id number]) on 05/10/2024 3:29:27 PM Referred By: REFERRED SELF Confirmed By: Nick Cohen
[2024-05-10] MEDS ORDERED: GLUCAGON FOR INJ 1 MG VIAL SQ PRN (15:49)
[2024-05-10] MEDS ORDERED: CARBOHYDRATES FOR HYPOGLYCEMIA PO PRN (15:49)
[2024-05-10] MEDS ORDERED: DEXTROSE 50% 50 ML SYRINGE IV PRN (15:49)
[2024-05-10] MEDS ORDERED: GLUCOSE 10 TAB/TUBE PO PRN (15:49)
[2024-05-10] MEDS ORDERED: GLUCOSE 40% GEL 15 GM TUBE PO PRN (15:49)
[2024-05-10] MEDS ORDERED: VANCOMYCIN HCL 1,750 MG in SODIUM CHLORIDE 0.9% 500 ML IV SCH (18:45)
[2024-05-10] MEDS ORDERED: VANCOMYCIN CONSULT ACTIVE PRN (18:45)
[2024-05-10] MEDS: INSULIN ASPART PER UNIT CHARGE SC SCH (19:02)
[2024-05-10] MEDS ORDERED: PETROLATUM 16 OZ JAR EXT PRN (20:19)
[2024-05-10] MEDS: HEPARIN SOD 5,000 UNIT/0.5 ML VIAL SQ SCH (20:56)
[2024-05-10] MEDS: VANCOMYCIN HCL 2,250 MG in SODIUM CHLORIDE 0.9% 500 ML IV ONE (20:57)
[2024-05-10] MEDS: TAMSULOSIN HCL 0.4 MG CAP PO SCH (20:57)
[2024-05-10] MEDS: oxyCODONE HCL 10 MG TABCR (OxyCONTIN) PO SCH (21:06)
[2024-05-10] MEDS: LIDOCAINE 5% OINT 30 GM TUBE TOP PRN (21:10)
[2024-05-10] MEDS: LANTUS PER UNIT CHARGE SQ SCH (21:22)
[2024-05-10] MEDS: LANTUS PER UNIT CHARGE SQ ONE (21:28)
[2024-05-11] MEDS: CEFEPIME 2,000 MG in SYRINGE 0 ML IV SCH (04:41)
[2024-05-11] MEDS: SODIUM CHLORIDE 0.65% NA SOLN 45 ML (OCEAN) PRN (06:20)
--- NOTE | 2024-05-11 08:17 | Hospitalist Progress Note ---
Date of Service May 11, 2024 Assessment & Plan (1) Confusion: Plan: Altered mental status, ? Acute on chronic due to UTI Infected appearing UA. Follow culture Admitted on cefepime. Past history of MRSA positive, pending culture results will add vancomycin No hypoxia - CT-H: Is without evidence of hemorrhage, mass effect, or ischemia. No obvious mets. If concern for brain mets rises can follow-up with MRI Does not appear septic. Procalcitonin is normal. No leukocytosis. Lactate is normal Cautious fluids due to underlying severe ischemic cardiomyopathy with EF less than 35% Has a history of MRSA infections of the plantar hallux in both feet, on assessment does not have active erythema/warm/tenderness/discharge to suggest active infection at time of admission Some concern for confusing his medications at home. Blood pressure has norm alized on admission. Remains confused, but does not appear sedated/hypotensive/narcotized. Will resume typical medications in the morning although hold valsartan for BHUPENDRA and torsemide for BHUPENDRA. 05/11 Sent by palliative care provider for concerns of confusion/agitation, coughing w/ suprapubic discomfort. Recently started Oxycontin 10mg Q12h and was there for follow-up. * Multifactorial: ?opiate related w/ recent start. ?infection w/ UTI vs Pneumonia likely worsened w/ recent poor PO intake 2nd to chemo +/- CHF and ongoing valsartan use w/ baseline CKD * Given 500cc NSS on admission, last ECHO w/ EF reported 30-35%, no further IVF ordered * Continues Cefepime, Vancomycin Prior urine cx 03/23/24 w/ pansensitive Ecoli Urine cx pending, de-escalate as able CXR w/ emphysema w/ pulm congestion. Biofire negative. Weight 104.9kg Not hypoxic but was given 500cc NSS on admission and home valsartan/torsemide on hold for BHUPENDRA on admission w/ Cr 1.7 (baseline 1.5) BUN/Cr IMPROVED --> 1.36 Lasix 40mg PO x 1 given BNP to 400s, CXR w/ pulm congestion. Valsartan remains on hold, BP was borderline on admission, ATN 2nd to hypotension on admission? Torsemide/valsartan on hold on admission given BHUPENDRA. Sprinolactone use in the past stopped due to "chest pressure" Monitor to resume in AM Ca 10.6 on admission. Vit D checked given Ca level, wnl at 70. No prior BM in 3- 4days reported BRUISE TRIMMER however MOVED x 2. Ammonia checked w/ hx cirrhosis, wnl Will check peripheral smear as well given AST/ALT elevation however ? to chemotherapy medications? LFT added to labs. Keytruda dose for tomorrow, message to Dr Tran sent for discussion Was he having afib/RVR. Does have hx afib per daughter but not on AC. CT head neg on admission but can check MRI if ongoing issues. TSH wnl in March, not on supplementation. -->Will repeat ECHO given prior EF <35%, declined ICD in the past as well as jardiance. Cardiology consult placed, daughter would like to have switched locally [place] [facility] [place]. Trop 9.8 on admission and denied CP * Pt is not on AC due to "balance issues and fall risk". Discussed HR did drop to the 30s when sleeping last night, concerns for possible tachy/senthil and continued monitoring on telemetry. * Per daughter, patient has been told about pacemaker for years (possibly 20) b ut has declined in the past. * ECHO ordered, pending. Appreciate cardiology consult/assistance DVT proph: Heparin SQ (2) Afib: Plan: prior hx PE/DVT, on coumadin but was discontinued per cards outpt note oct 2023 [facility]. TSH checked in March 2024 and wnl EKG on admission w/ Afib Last ECHO <35%, had declined ICD AFIB ON MONITOR, occ PAC. Not on AC as above. Rates appear controlled Remains on metoprolol 100mg daily Valsartan on hold for CHF, did give dose of lasix as above for pulm congestion Repeat ECHO/cards consulted as above Keep K/mag replete Monitor on telemetry (3) Acute kidney injury superimposed on stage 3b chronic kidney disease: Plan: Cr 1.7 on admission w/ baseline ~1.5 Suspect 2nd to poor PO intake +/- UTI as above Abx as outlined, home valsartan/torsemide on hold Did order one time dose of lasix for today given Cr back to 1.36 and will monitor on repeat to resume home meds Renal dose meds/avoid nephrotoxin agents as able BMP in AM (4) UTI (urinary tract infection): Plan: suspected mentation stable w/ abx treatment and remains on such. 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 Keytruda transaminitis. Held (next dose for tomorrow) Does have hx cirrhosis on cardiology outpatient note. Ammonia level wnl on check, is moving his bowels Continue oxycodone every 12 hours as needed for cancer pain, breakthrough oxycodone 5 mg every 6 hours as needed. Pain is adequately controlled at bedside. Narcotic changes could be contributing to confusion however does not appear narcotize, has ongoing cancer pain, and it is reasonable to continue treating this while other etiologies of his confusion are treated/assessed Lasix PO x 1 as above LFT added to AM labs Tick studies/peripheral smear ordered F/u Dr Tran in AM, did message of inpatient stay as next chemo was to be scheduled for tomorrow Trend (6) Ischemic cardiomyopathy: Plan: Ischemic cardiomyopathy, history of CAD With echo 2022 with EF 30-35% most recently per outpatient note. Diuretic/valsartan placed on HOLD as above for BHUPENDRA on admission. Was given 500cc NSS, will order lasix PO x 1 Remains on metoprolol, aspirin No CP reported Afib on monitor, see above Continue to monitor (7) DM2 (diabetes mellitus, type 2): Plan: DM2 Metformin held on admission, BSG AC/HS, SSI Discontinued glargine 7u BID as only on metformin, BSGs acceptable Has been declining insulin, however BSG checks acceptable If no need for any further imaging, likely can just resume home metformin AM (pending renal function) Plan DVT prophylaxis: Heparin SQ while inpatient PT eval placed while inpatient Updated daughter in room Hopeful dc in next 24-48 hours if urine cx finalized/mentation remaining stable Admission and Anticipated Discharge Date Admission Date: May 10, 2024 Supervising Physician Co-Signing Physician Notes The patient was not seen by me. The chart was reviewed. Case discussed with BETSY Fabian. Agree with assessment and plan Subjective Evaluated around lunch, daughter at bedside. Patient sitting up in the chair. Alert to person/place/year, anxious for discharge. Discussed waiting for urine cx prior to de-escalation of abx. Olmedo draining yellow urine. Discussed Keytruda possible contributing to sx as well as newer Oxycontin but has been continued on such. Patient reports 2 bowel movements, regimen continued. Renal function improved. Discussed BHUPENDRA possible contributing w/ dehydration and possible UTI. Abx continued but renal function improved. Patient does endorse he has had decreased PO intake/not wanting to eat much. [facility] Daughter reports his next Keytruda was scheduled/to be tomorrow. Typically follows with Dr Tran. Will message. We also discussed pill box, does appear some stool softeners not taken, possible multiple rx for valsartan/other. Discussed pill packs, will have CM look into such. Also discussed afib on monitor. Patient denies palpitations. Prior followed w/ [facility] but all other providers w/ [facility] and daughter is inquiring if maybe easier to have all providers in same area as providers leaving up their way. Discussed afib , he is not on AC due to "balance issues and fall risk". Discussed HR did drop to the 30s when sleeping last night, concerns for possible tachy/senthil and continued monitoring on telemetry. Per daughter, patient has been told about pacemaker for years (possibly 20) but has declined in the past. Physical Exam Physical Exam: General: 79 yo male sitting up in recliner chair, daughter in room, NAD HEENT: head atraumatic, normocephalic, mmm, trachea midline, HARD OF HEARING Resp: diminished in the bases, exp wheezing, no rales/crackles, on room air CV: irregularly irregular, +systolic murmur, trace LE edema, pulses present, calves nontender GI: +BS, soft/slight distension, nontender : olmedo draining yellow urine MSK/Neuro: nonfocal, answering questions appropriately, strength equal bilaterally, no slurred speech Plantar hallux bilaterally with superficial ulcer without discharge, warmth, erythema, tenderness. No lower extremity edema is present. Psych: alert /oriented to person/place/year Results & Data Results & Data Vital Signs (Past 12 Hours) Vital Signs Temp Pulse Pulse Resp BP Pulse Ox O2 Del Method 05/11/24 07:41 37.2 C 75 18 101/64 92 Room Air 05/11/24 07:08 69 05/11/24 05:00 36.9 C 73 20 102/63 94 Room Air 05/11/24 00:21 Room Air 05/11/24 00:15 36.7 C 76 20 101/62 92 Room Air 05/10/24 23:19 80 05/10/24 21:08 111/63 92 Room Air Laboratory Results 05/11/24 05/11/24 05/11/24 Range/Units 12:26 08:45 08:42 WBC (4.8-10.8) K/ul RBC (4.70-6.10) M/uL Hgb (14.0-18.0) g/dl Hct (42.0-52.0) % MCV (80.0-100.0) fL MCH (25.0-34.0) pg MCHC (32.0-36.0) g/dL RDW Std Deviation (36.4-46.3) fL RDW Coeff of Manuel (11.5-14.5) % Plt Count (130-400) K/uL MPV (9.4-12.4) fL Immature Gran % (Auto) % Neut % (Auto) % Lymph % (Auto) % [place] % (Auto) % Eos % (Auto) % Baso % (Auto) % Neut # (Auto) (1.40-6.50) K/uL Lymph # (Auto) (1.20-3.40) K/uL [place] # (Auto) (0.11-0.59) K/uL Eos # (Auto) (0.00-0.50) K/uL Baso # (Auto) (0.00-0.20) K/uL Immature Gran # (Auto) (0.01-0.20) K/uL PT (9.0-12.0) Seconds INR (0.9-1.1) APTT (21-31) Seconds PTT Ratio Sodium (136-145) mmol/L Potassium (3.5-5.1) mmol/L Chloride (98-107) mmol/L Carbon Dioxide (21-32) mmol/L Anion Gap (3-11) BUN (6-23) mg/dl Creatinine (0.6-1.4) mg/dl Est Cr Clr Drug Dosing Est GFR ( Amer) ml/min Est GFR (Non-Af Amer) ml/min BUN/Creatinine Ratio (10-20) Glucose (70-99(Fasting)) mg/dl POC Glucose 93 (70-99) mg/dl Lactate (0.4-2.0) mmol/L Calcium (8.6-10.3) mg/dl Magnesium (1.7-2.4) mg/dl Total Bilirubin (0.2-1.0) mg/dl AST (13-39) U/L ALT (7-52) U/L Alkaline Phosphatase (34-104) U/L Ammonia 19.0 (18-72) umol/L Troponin I High Sens (0-20) pg/ml B-Natriuretic Peptide 473 H (0-100) pg/ml Total Protein (6.0-8.3) gm/dl Albumin (3.4-5.0) gm/dl Globulin (2.5-4.0) gm/dl Albumin/Globulin Ratio (0.9-2) 25-OH Vitamin D Total 70.0 (30-100) ng/ml Procalcitonin (0-0.5) ng/ml Urine Color Urine Appearance (Clear) Urine pH (4.5-7.5) Ur Specific Moca (1.000-1.030) Urine Protein (Negative) Urine Glucose (UA) (Negative) Urine Ketones (Negative) Urine Blood (Negative) Urine Nitrite (Negative) Urine Bilirubin (Negative) Urine Urobilinogen (Negative) Ur Leukocyte Esterase (Negative) Urine WBC (Auto) (0-5) /hpf Urine RBC (Auto) (0-2) /hpf U Hyaline Cast (Auto) (0-2) /lpf U Epithel Cells (Auto) (0-2) /hpf Urine Bacteria (Auto) (None Seen) Amorphous Sediment (None Prsent) Adenovirus (PCR) (NotDetected) Anaplasma Smear See Comment Babesia Smear See Comment Babesia microti DNA PCR Pending B. pertussis DNA (PCR) (NotDetected) B.parapertussis DNA PCR (NotDetected) Lyme Disease Screen Negative (Negative) C. pneumoniae DNA (PCR) (NotDetected) Coronavirus OC43 (PCR) (NotDetected) Coronavirus HKU1 (PCR) (NotDetected) Coronavirus 229E (PCR) (NotDetected) SARS-CoV-2 (PCR) (NotDetected) Coronavirus NL63 (PCR) (NotDetected) Human Metapneumovir PCR (NotDetected) Influenza Type A (PCR) (NotDetected) Influenza Type B (PCR) (NotDetected) M. pneumoniae (PCR) (NotDetected) Parainfluenza 1 (PCR) (NotDetected) Parainfluenza 2 (PCR) (NotDetected) Parainfluenza 3 (PCR) (NotDetected) Parainfluenza 4 (PCR) (NotDetected) RSV (PCR) (NotDetected) Entero/Rhino (PCR) (NotDetected) 05/11/24 05/11/24 05/10/24 Range/Units 08:12 07:38 20:44 WBC 6.70 (4.8-10.8) K/ul RBC 4.57 L (4.70-6.10) M/uL Hgb 13.7 L (14.0-18.0) g/dl Hct 42.5 (42.0-52.0) % MCV 93.0 (80.0-100.0) fL MCH 30.0 (25.0-34.0) pg MCHC 32.2 (32.0-36.0) g/dL RDW Std Deviation 51.0 H (36.4-46.3) fL RDW Coeff of Manuel 14.8 H (11.5-14.5) % Plt Count 164 (130-400) K/uL MPV 10.2 (9.4-12.4) fL Immature Gran % (Auto) 0.3 % Neut % (Auto) 52.6 % Lymph % (Auto) 14.6 % [place] % (Auto) 18.5 % Eos % (Auto) 13.3 % Baso % (Auto) 0.7 % Neut # (Auto) 3.52 (1.40-6.50) K/uL Lymph # (Auto) 0.98 L (1.20-3.40) K/uL [place] # (Auto) 1.24 H (0.11-0.59) K/uL Eos # (Auto) 0.89 H (0.00-0.50) K/uL Baso # (Auto) 0.05 (0.00-0.20) K/uL Immature Gran # (Auto) 0.02 (0.01-0.20) K/uL PT (9.0-12.0) Seconds INR (0.9-1.1) APTT (21-31) Seconds PTT Ratio Sodium 140 (136-145) mmol/L Potassium 4.0 (3.5-5.1) mmol/L Chloride 105 (98-107) mmol/L Carbon Dioxide 28 (21-32) mmol/L Anion Gap 7 (3-11) BUN 31 H (6-23) mg/dl Creatinine 1.36 D (0.6-1.4) mg/dl Est Cr Clr Drug Dosing 50.0 Est GFR ( Amer) 57.0 ml/min Est GFR (Non-Af Amer) 49.1 ml/min BUN/Creatinine Ratio 22.8 H (10-20) Glucose 103 H (70-99(Fasting)) mg/dl POC Glucose 101 H 94 (70-99) mg/dl Lactate (0.4-2.0) mmol/L Calcium 9.3 (8.6-10.3) mg/dl Magnesium 1.9 (1.7-2.4) mg/dl Total Bilirubin (0.2-1.0) mg/dl AST (13-39) U/L ALT (7-52) U/L Alkaline Phosphatase (34-104) U/L Ammonia (18-72) umol/L Troponin I High Sens (0-20) pg/ml B-Natriuretic Peptide (0-100) pg/ml Total Protein (6.0-8.3) gm/dl Albumin (3.4-5.0) gm/dl Globulin (2.5-4.0) gm/dl Albumin/Globulin Ratio (0.9-2) 25-OH Vitamin D Total (30-100) ng/ml Procalcitonin (0-0.5) ng/ml Urine Color Urine Appearance (Clear) Urine pH (4.5-7.5) Ur Specific Moca (1.000-1.030) Urine Protein (Negative) Urine Glucose (UA) (Negative) Urine Ketones (Negative) Urine Blood (Negative) Urine Nitrite (Negative) Urine Bilirubin (Negative) Urine Urobilinogen (Negative) Ur Leukocyte Esterase (Negative) Urine WBC (Auto) (0-5) /hpf Urine RBC (Auto) (0-2) /hpf U Hyaline Cast (Auto) (0-2) /lpf U Epithel Cells (Auto) (0-2) /hpf Urine Bacteria (Auto) (None Seen) Amorphous Sediment (None Prsent) Adenovirus (PCR) (NotDetected) Anaplasma Smear Babesia Smear Babesia microti DNA PCR B. pertussis DNA (PCR) (NotDetected) B.parapertussis DNA PCR (NotDetected) Lyme Disease Screen (Negative) C. pneumoniae DNA (PCR) (NotDetected) Coronavirus OC43 (PCR) (NotDetected) Coronavirus HKU1 (PCR) (NotDetected) Coronavirus 229E (PCR) (NotDetected) SARS-CoV-2 (PCR) (NotDetected) Coronavirus NL63 (PCR) (NotDetected) Human Metapneumovir PCR (NotDetected) Influenza Type A (PCR) (NotDetected) Influenza Type B (PCR) (NotDetected) M. pneumoniae (PCR) (NotDetected) Parainfluenza 1 (PCR) (NotDetected) Parainfluenza 2 (PCR) (NotDetected) Parainfluenza 3 (PCR) (NotDetected) Parainfluenza 4 (PCR) (NotDetected) RSV (PCR) (NotDetected) Entero/Rhino (PCR) (NotDetected) 05/10/24 05/10/24 05/10/24 Range/Units 16:12 13:40 12:57 WBC (4.8-10.8) K/ul RBC (4.70-6.10) M/uL Hgb (14.0-18.0) g/dl Hct (42.0-52.0) % MCV (80.0-100.0) fL MCH (25.0-34.0) pg MCHC (32.0-36.0) g/dL RDW Std Deviation (36.4-46.3) fL RDW Coeff of Manuel (11.5-14.5) % Plt Count (130-400) K/uL MPV (9.4-12.4) fL Immature Gran % (Auto) % Neut % (Auto) % Lymph % (Auto) % [place] % (Auto) % Eos % (Auto) % Baso % (Auto) % Neut # (Auto) (1.40-6.50) K/uL Lymph # (Auto) (1.20-3.40) K/uL [place] # (Auto) (0.11-0.59) K/uL Eos # (Auto) (0.00-0.50) K/uL Baso # (Auto) (0.00-0.20) K/uL Immature Gran # (Auto) (0.01-0.20) K/uL PT (9.0-12.0) Seconds INR (0.9-1.1) APTT (21-31) Seconds PTT Ratio Sodium (136-145) mmol/L Potassium (3.5-5.1) mmol/L Chloride (98-107) mmol/L Carbon Dioxide (21-32) mmol/L Anion Gap (3-11) BUN (6-23) mg/dl Creatinine (0.6-1.4) mg/dl Est Cr Clr Drug Dosing Est GFR ( Amer) ml/min Est GFR (Non-Af Amer) ml/min BUN/Creatinine Ratio (10-20) Glucose (70-99(Fasting)) mg/dl POC Glucose 87 (70-99) mg/dl Lactate 1.1 (0.4-2.0) mmol/L Calcium (8.6-10.3) mg/dl Magnesium (1.7-2.4) mg/dl Total Bilirubin (0.2-1.0) mg/dl AST (13-39) U/L ALT (7-52) U/L Alkaline Phosphatase (34-104) U/L Ammonia (18-72) umol/L Troponin I High Sens (0-20) pg/ml B-Natriuretic Peptide (0-100) pg/ml Total Protein (6.0-8.3) gm/dl Albumin (3.4-5.0) gm/dl Globulin (2.5-4.0) gm/dl Albumin/Globulin Ratio (0.9-2) 25-OH Vitamin D Total (30-100) ng/ml Procalcitonin (0-0.5) ng/ml Urine Color Dark Yellow Urine Appearance Turbid A (Clear) Urine pH 5.5 (4.5-7.5) Ur Specific Moca 1.024 (1.000-1.030) Urine Protein 1+ H (Negative) Urine Glucose (UA) Negative (Negative) Urine Ketones Trace H (Negative) Urine Blood Negative (Negative) Urine Nitrite Negative (Negative) Urine Bilirubin Negative (Negative) Urine Urobilinogen Negative (Negative) Ur Leukocyte Esterase 2+ H (Negative) Urine WBC (Auto) 21-50 H (0-5) /hpf Urine RBC (Auto) 11-20 H (0-2) /hpf U Hyaline Cast (Auto) 6-10 H (0-2) /lpf U Epithel Cells (Auto) 3-5 H (0-2) /hpf Urine Bacteria (Auto) None Seen (None Seen) Amorphous Sediment Present A (None Prsent) Adenovirus (PCR) (NotDetected) Anaplasma Smear Babesia Smear Babesia microti DNA PCR B. pertussis DNA (PCR) (NotDetected) B.parapertussis DNA PCR (NotDetected) Lyme Disease Screen (Negative) C. pneumoniae DNA (PCR) (NotDetected) Coronavirus OC43 (PCR) (NotDetected) Coronavirus HKU1 (PCR) (NotDetected) Coronavirus 229E (PCR) (NotDetected) SARS-CoV-2 (PCR) (NotDetected) Coronavirus NL63 (PCR) (NotDetected) Human Metapneumovir PCR (NotDetected) Influenza Type A (PCR) (NotDetected) Influenza Type B (PCR) (NotDetected) M. pneumoniae (PCR) (NotDetected) Parainfluenza 1 (PCR) (NotDetected) Parainfluenza 2 (PCR) (NotDetected) Parainfluenza 3 (PCR) (NotDetected) Parainfluenza 4 (PCR) (NotDetected) RSV (PCR) (NotDetected) Entero/Rhino (PCR) (NotDetected) 05/10/24 05/10/24 Range/Units 12:53 12:14 WBC 7.05 (4.8-10.8) K/ul RBC 5.05 (4.70-6.10) M/uL Hgb 14.9 (14.0-18.0) g/dl Hct 46.5 (42.0-52.0) % MCV 92.1 (80.0-100.0) fL MCH 29.5 (25.0-34.0) pg MCHC 32.0 (32.0-36.0) g/dL RDW Std Deviation 50.4 H (36.4-46.3) fL RDW Coeff of Manuel 14.7 H (11.5-14.5) % Plt Count 183 (130-400) K/uL MPV 10.1 (9.4-12.4) fL Immature Gran % (Auto) 0.3 % Neut % (Auto) 54.3 % Lymph % (Auto) 19.6 % [place] % (Auto) 18.0 % Eos % (Auto) 7.1 % Baso % (Auto) 0.7 % Neut # (Auto) 3.83 (1.40-6.50) K/uL Lymph # (Auto) 1.38 (1.20-3.40) K/uL [place] # (Auto) 1.27 H (0.11-0.59) K/uL Eos # (Auto) 0.50 (0.00-0.50) K/uL Baso # (Auto) 0.05 (0.00-0.20) K/uL Immature Gran # (Auto) 0.02 (0.01-0.20) K/uL PT 11.4 (9.0-12.0) Seconds INR 1.1 (0.9-1.1) APTT 26 (21-31) Seconds PTT Ratio 1.0 Sodium 140 (136-145) mmol/L Potassium 4.1 (3.5-5.1) mmol/L Chloride 102 (98-107) mmol/L Carbon Dioxide 31 (21-32) mmol/L Anion Gap 7 (3-11) BUN 35 H (6-23) mg/dl Creatinine 1.71 H (0.6-1.4) mg/dl Est Cr Clr Drug Dosing Not Reportable Est GFR ( Amer) 43.2 ml/min Est GFR (Non-Af Amer) 37.3 ml/min BUN/Creatinine Ratio 20.5 H (10-20) Glucose 108 H (70-99(Fasting)) mg/dl POC Glucose (70-99) mg/dl Lactate (0.4-2.0) mmol/L Calcium 10.6 H (8.6-10.3) mg/dl Magnesium 2.1 (1.7-2.4) mg/dl Total Bilirubin 0.9 (0.2-1.0) mg/dl AST 62 H (13-39) U/L ALT 68 H (7-52) U/L Alkaline Phosphatase 59 (34-104) U/L Ammonia (18-72) umol/L Troponin I High Sens 9.8 (0-20) pg/ml B-Natriuretic Peptide (0-100) pg/ml Total Protein 8.0 (6.0-8.3) gm/dl Albumin 4.2 (3.4-5.0) gm/dl Globulin 3.8 (2.5-4.0) gm/dl Albumin/Globulin Ratio 1.1 (0.9-2) 25-OH Vitamin D Total (30-100) ng/ml Procalcitonin 0.16 (0-0.5) ng/ml Urine Color Urine Appearance (Clear) Urine pH (4.5-7.5) Ur Specific Moca (1.000-1.030) Urine Protein (Negative) Urine Glucose (UA) (Negative) Urine Ketones (Negative) Urine Blood (Negative) Urine Nitrite (Negative) Urine Bilirubin (Negative) Urine Urobilinogen (Negative) Ur Leukocyte Esterase (Negative) Urine WBC (Auto) (0-5) /hpf Urine RBC (Auto) (0-2) /hpf U Hyaline Cast (Auto) (0-2) /lpf U Epithel Cells (Auto) (0-2) /hpf Urine Bacteria (Auto) (None Seen) Amorphous Sediment (None Prsent) Adenovirus (PCR) Not Detected (NotDetected) Anaplasma Smear Babesia Smear Babesia microti DNA PCR B. pertussis DNA (PCR) Not Detected (NotDetected) B.parapertussis DNA PCR Not Detected (NotDetected) Lyme Disease Screen (Negative) C. pneumoniae DNA (PCR) Not Detected (NotDetected) Coronavirus OC43 (PCR) Not Detected (NotDetected) Coronavirus HKU1 (PCR) Not Detected (NotDetected) Coronavirus 229E (PCR) Not Detected (NotDetected) SARS-CoV-2 (PCR) Not Detected (NotDetected) Coronavirus NL63 (PCR) Not Detected (NotDetected) Human Metapneumovir PCR Not Detected (NotDetected) Influenza Type A (PCR) Not Detected (NotDetected) Influenza Type B (PCR) Not Detected (NotDetected) M. pneumoniae (PCR) Not Detected (NotDetected) Parainfluenza 1 (PCR) Not Detected (NotDetected) Parainfluenza 2 (PCR) Not Detected (NotDetected) Parainfluenza 3 (PCR) Not Detected (NotDetected) Parainfluenza 4 (PCR) Not Detected (NotDetected) RSV (PCR) Not Detected (NotDetected) Entero/Rhino (PCR) Not Detected (NotDetected) Diagnostic Findings Chest X-Ray 05/10/24 12:45 SINGLE VIEW CHEST CLINICAL HISTORY: Sepsis FINDINGS: 2 AP, portable, upright chest radiographs are correlated with chest CT dated 03/23/2024. The heart is enlarged. There is pulmonary vascular congestion. Emphysema and chronic interstitial thickening is previous. There is bibasilar scarring/atelectasis. No airspace consolidation or large pleural effusion is identified. No pneumothorax is seen. The skeletal structures are osteopenic. The bony thorax is grossly intact. Arthritic change is noted in the shoulders. IMPRESSION: Cardiomegaly and emphysema with pulmonary vascular congestion. ACT 112: Negative or not required by law. Electronically signed by: Db Feliciano M.D. 05/10/2024 1:[address] 05/10/24 12:45 CT SCAN OF THE BRAIN WITHOUT IV CONTRAST CLINICAL HISTORY: Change in mental status. COMPARISON STUDY: No priors. TECHNIQUE: Unenhanced axial CT scan of the brain is performed from the vertex to the skull base. A dose lowering technique was utilized adhering to the principles of ALARA. The patient was scanned twice due to motion artifact. CT DOSE: 1250.21 mGy.cm FINDINGS: Brain parenchyma: There is age-related involutional change noting mild subcortical and periventricular microangiopathic disease. There is no hemorrhage, mass effect, or evidence of acute territorial ischemia by CT criteria. Davis-white matter differentiation is preserved. No extra-axial fluid collection is seen. Ventricles, sulci, cisterns: Prominent secondary to involutional change. Intracranial vasculature: There is atherosclerotic calcification of the cavernous carotid arteries. Calvarium: Unremarkable. Sinuses and mastoids: The visualized paranasal sinuses are clear. The mastoid air cells are well pneumatized. Orbits: The bony orbits are grossly intact. IMPRESSION: There is no hemorrhage, mass effect, or evidence of acute territorial ischemia by CT criteria. ACT 112: Negative or not required by law. Electronically signed by: Db Feliciano M.D. 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
[2024-05-11 08:28] LABS: Basophils # (auto) 0.05 K/uL (0.00-0.20); Basophils % (auto) 0.7 %; Eosinophils # (auto) 0.89 K/uL (0.00-0.50); Eosinophils % (auto) 13.3 %; Hematocrit (blood only) 42.5 % (42.0-52.0); Hemoglobin 13.7 g/dl (14.0-18.0); Immature Granulocytes # (auto) 0.02 K/uL (0.01-0.20); Immature Granulocytes % (auto) 0.3 %; Lymphocytes # (auto) 0.98 K/uL (1.20-3.40); Lymphocytes % (auto) 14.6 %; Mean Corpuscular Hgb Conc 32.2 g/dL (32.0-36.0); Mean Platelet Volume 10.2 fL (9.4-12.4); Monocytes # (auto) 1.24 K/uL (0.11-0.59); Monocytes % (auto) 18.5 %; Neutrophils # (auto) 3.52 K/uL (1.40-6.50); Neutrophils % (auto) 52.6 %; Platelet Count 164 K/uL (130-400); RDW Coefficient of Variation 14.8 % (11.5-14.5); Red Blood Count 4.57 M/uL (4.70-6.10)
[2024-05-11 08:35] LABS: BUN Creatinine Ratio 22.8 (10-20); Calcium 9.3 mg/dl (8.6-10.3); Est GFR (Non-African American) 49.1 ml/min
[2024-05-11 09:24] LABS: Magnesium 1.9 mg/dl (1.7-2.4)
[2024-05-11] MEDS: ASPIRIN 81 MG ECTAB PO SCH (09:47)
[2024-05-11] MEDS: CHOLECALCIFEROL 25 MCG (1000 UNITS) TAB PO SCH (09:47)
[2024-05-11] MEDS: ASCORBIC ACID 500 MG TAB PO SCH (09:47)
[2024-05-11] MEDS: OXYBUTYNIN CHLORIDE XL 5 MG TABCR PO SCH (09:48)
[2024-05-11] MEDS: METOPROLOL SUCC 50MG EXT REL TAB PO SCH (09:48)
[2024-05-11] MEDS: POLYETHYLENE (MIRALAX) 17 GM PACK PO SCH (09:48)
--- NOTE | 2024-05-11 11:26 | Pharmacy Report ---
Pharmacy PK ABX Note - Date of Service May 11, 2024 - Assessment and Plan Assessment 79 year old M receiving Vancomycin for treatment of UTI and feet cellulitis. Blood and Urine cultures pending. Day #2 of antimicrobial therapy. Plan Vancomycin * Loading dose: 2250 mg IV x 1 yesterday night. * Maintenance dose: 1250 mg IV every 24 hours * Regimen is predicted to achieve target AUC/KEEGAN of 400-600 mg/L.hr * Random level ordered for: 05/12 with AM labs Pharmacy will continue to follow and will adjust dose/frequency as necessary. Thank you. Pharmacy has transitioned to AUC monitoring for vancomycin. AUC/KEEGAN is the preferred PK/PD target and is associated with decreased risk of nephrotoxicity compared to traditional trough targets.
[2024-05-11] MEDS: VANCOMYCIN HCL 1,250 MG in SODIUM CHLORIDE 0.9% 250 ML IV SCH (11:47)
[2024-05-11] MEDS: POTASSIUM CHLORIDE CRTAB 20 MEQ TABCR PO STA (13:25)
[2024-05-11] MEDS: FUROSEMIDE 40 MG TAB PO ONE (14:08)
[2024-05-11 14:23] LABS: Albumin Level 3.6 gm/dl (3.4-5.0); Bilirubin Direct 0.4 mg/dl (0-0.2); Bilirubin,Total 1.1 mg/dl (0.2-1.0); Total Protein 7.1 gm/dl (6.0-8.3)
[2024-05-11] MEDS: ONDANSETRON INJ 2 MG/ML 2 ML VIAL IV PRN (14:23)
--- NOTE | 2024-05-11 14:37 | Cardiology Consultation ---
Date of Consultation May 11, 2024 Assessment & Plan (1) Afib: (2) Ischemic cardiomyopathy: (3) Coronary artery disease: Plan 1. Atrial fibrillation: This was identified on his electrocardiogram in December of this year, I am not sure whether it was addressed or not by his primary team. It sounds as though he was on anticoagulation over the years without difficulty but more recently that was discontinued, it sounds as though it was discontinued by his preference. I would recommend starting an anticoagulant, his daughter agrees that we should start Eliquis not warfarin, I believe the patient is agreeable. I would recommend doing so and his dose will be 5 mg twice a day. I have not put in the order. I would not recommend a pacemaker, his heart rate seems adequately controlled on his current medical regimen. 2. Ischemic cardiomyopathy: He does have an ischemic cardiomyopathy but his ejection fraction is not dropping, by our measures it is higher than it was last year. I would not do anything different and I would continue his current medical regimen. He does not need an ICD. 3. Coronary disease: He has known coronary disease, he does not seem to have symptoms related to it and has not had any further decrease in his ejection fraction to suggest recent infarction. I would not be inclined to evaluate him with stress testing or invasive evaluation unless symptoms became very worrisome. History of Present Illness Reason for Consultation: Atrial fibrillation, ischemic cardiomyopathy Attending Physician: Javid Marcus MD History of Present Illness This is a 79-year-old male who has a history of stage IV penile cancer and pain from this. He has had difficulty with confusion recently, presented to the emergency room primarily for confusion and was noted to be hypotensive with altered mental status. He had acute kidney injury, with a suspected UTI. From the cardiovascular standpoint he has a history of ischemic cardiomyopathy with severe left ventricular dysfunction, the last echocardiogram that I am aware of done at [facility] in [place] shows a left ventricular ejection fraction of 30 to 35% with diffuse hypokinesis. There is a cardiology note available for review which notes that he has declined ICD placement in the past on several occasions. He has been maintained on beta-blockade and ARB, as well as diuretics. An echocardiogram today shows left ventricular dysfunction with ejection fraction 45 to 50% and mild mitral regurgitation. We are asked to evaluate him for atrial fibrillation without anticoagulation and the possibility of a pacemaker for tachybradycardia syndrome. He is presenting electrocardiogram here demonstrates underlying atrial fibrillation with left anterior fascicular block and right bundle branch block. There is a comparison electrocardiogram from December 2023 which is similar, in June 2023 he was in sinus rhythm with similar conducted complexes. Both the patient and his daughter who is present in the room are familiar with atrial fibrillation, and he recognizes that he has had it in the past. From what I can gather he was on warfarin for many years, and when it was recommended to switch with the newer agents he refused and ultimately the warfarin was discontinued although I do not know the exact reason for that. He is apparently quite resistant to changing his medications. At the time my evaluation he is laying in bed, he appears comfortable and is conversational. He has no cardiovascular complaints and no awareness of his atrial fibrillation. Allergies Allergy/AdvReac Type Severity Reaction Status Date / Time carvedilol [From Coreg] Allergy Unknown pt not sure Verified 03/26/24 07:05 ezetimibe [From Zetia] Allergy Unknown muscle Verified 03/26/24 07:05 aches fluvastatin Allergy Unknown muscle Verified 03/26/24 07:05 aches gemfibrozil Allergy Unknown muscle Verified 03/26/24 07:05 aches pravastatin Allergy Unknown muscle Verified 03/26/24 07:05 aches simvastatin Allergy Unknown muscle Verified 03/26/24 07:05 aches sulfamethoxazole Allergy Unknown pt not sure Verified 03/26/24 07:05 [From Bactrim] trimethoprim [From Bactrim] Allergy Unknown pt not sure Verified 03/26/24 07:05 Home Medications Medication Instructions Recorded Confirmed Type metoprolol succinate 100 mg 100 mg PO QAM 01/12/24 05/10/24 History tablet,extended release 24 hr polyethylene glycol 3350 17 17 g PO QAM 01/12/24 05/10/24 History gram/dose oral powder tamsulosin 0.4 mg capsule 0.4 mg PO BID 01/12/24 05/10/24 History torsemide 10 mg tablet 10 mg PO DAILY PRN Weight Gain 01/12/24 05/10/24 History tramadol 50 mg tablet 50 mg PO UD PRN Pain 01/12/24 05/10/24 History valsartan 160 mg tablet 80 mg PO BID 01/12/24 05/10/24 History ascorbic acid (vitamin C) 1,000 mg 1 g PO QAM 01/14/24 05/10/24 History tablet (Vitamin C) aspirin 81 mg tablet,delayed 81 mg PO QAM 01/14/24 05/10/24 History release cholecalciferol (vitamin D3) 50 50 mcg PO QAM 01/14/24 05/10/24 History mcg (2,000 unit) capsule (Vitamin D3) metformin 500 mg tablet 500 mg PO BID 01/14/24 05/10/24 History mineral oil-hydrophil petrolat 1 applic topical UD PRN catheter 01/14/24 05/10/24 History topical ointment area oxybutynin chloride 5 mg 5 mg PO DAILY #30 tabs 03/29/24 05/10/24 Rx tablet,extended release 24 hr lidocaine 5 % topical ointment 1 applic topical TID PRN pain #30 04/02/24 05/10/24 Rx grams oxycodone 10 mg tablet,crush 10 mg PO Q12H cancer pain 1 month 04/29/24 05/10/24 Rx resistant,extended release 12 hr #60 tabs (OxyContin) oxycodone 5 mg tablet 5 mg PO .Q4-6H PRN Pain 05/10/24 05/10/24 History Patient History Medical History History of pulmonary embolism Hx MRSA infection (12/2023) foot ulcers, treated w/ Vanco at [facility] Hx of sepsis (01/18/24) admitted at [facility] w/ sepsis from foot ulcers Hx of diabetic foot ulcer (12/2023) right and left big toe; in process of healing, seeing [facility] Cirrhosis 12/17/2023 Diabetes mellitus NIDDM History of COVID-19 (~2021) Neuropathy Hospice care patient for past 2 yrs. Kidney disease unknown details U[place] catheter in place History of UTI multiple Penile cancer dx 2021 Sleep apnea suspected/sleep study yrs ago/oxygen recommended pt declined. Shortness of breath mostly at night. Poor historian Coronary artery disease 1997: LAD 70, LCX OK, RCA 90, failed balloon angioplasty; NSTEMI 2017, patient declined cath; per [facility] records History of DC (myocardial infarction) 4 or 5/last one a few yrs ago. Surgical History History of eyelid surgery History of urologic surgery multiple on penis. most recent in office procedure december 2023. History of cardiac cath hx x 1 attempted/unsuccessful. 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 He is laying supine in bed HEENT: Unremarkable Neck: No jugular venous distention, carotid pulses are irregular but otherwise normal and equal bilaterally without bruits. Pulmonary: Clear to auscultation bilaterally. Cardiac: Irregular rhythm with a soft holosystolic murmur at the apex, no gallop or rub. Abdomen: Soft, nontender with normal bowel sounds. Extremities: No edema. Distal pulses intact. Neurologic: No focal findings. Skin: No rash, ecchymoses or petechiae. Results & Data Vital Signs (Past 12 Hours) Vital Signs Temp Pulse Pulse Resp BP BP Pulse Ox 05/11/24 12:45 05/11/24 11:04 36.8 C 83 122/72 92 05/11/24 10:34 05/11/24 07:41 37.2 C 75 18 101/64 92 05/11/24 07:08 69 05/11/24 05:00 36.9 C 73 20 102/63 94 Pulse Ox O2 Del Method O2 Del Method 05/11/24 12:45 92 Room Air 05/11/24 11:04 Room Air 05/11/24 10:34 Room Air 05/11/24 07:41 Room Air 05/11/24 07:08 05/11/24 05:00 Room Air Laboratory Results Cardiac Enzymes 05/11/24 05/11/24 Range/Units 07:38 08:42 AST 58 H (13-39) U/L B-Natriuretic Peptide 473 H (0-100) pg/ml Coagulation 08/20/24 Range/Units 08:42 B-Natriuretic Peptide 473 H (0-100) pg/ml CBC 05/11/24 Range/Units 07:38 WBC 6.70 (4.8-10.8) K/ul RBC 4.57 L (4.70-6.10) M/uL Hgb 13.7 L (14.0-18.0) g/dl Hct 42.5 (42.0-52.0) % Plt Count 164 (130-400) K/uL Neut # (Auto) 3.52 (1.40-6.50) K/uL Lymph # (Auto) 0.98 L (1.20-3.40) K/uL Dupage # (Auto) 1.24 H (0.11-0.59) K/uL Eos # (Auto) 0.89 H (0.00-0.50) K/uL Baso # (Auto) 0.05 (0.00-0.20) K/uL Comprehensive Metabolic Panel 05/11/24 Range/Units 07:38 Sodium 140 (136-145) mmol/L Potassium 4.0 (3.5-5.1) mmol/L Chloride 105 (98-107) mmol/L Carbon Dioxide 28 (21-32) mmol/L BUN 31 H (6-23) mg/dl Creatinine 1.36 D (0.6-1.4) mg/dl Glucose 103 H (70-99(Fasting)) mg/dl Calcium 9.3 (8.6-10.3) mg/dl Direct Bilirubin 0.4 H (0-0.2) mg/dl AST 58 H (13-39) U/L ALT 55 H (7-52) U/L Alkaline Phosphatase 51 (34-104) U/L Total Protein 7.1 (6.0-8.3) gm/dl Albumin 3.6 (3.4-5.0) gm/dl Intake and Output 05/11/24 05/11/24 05/11/24 06:59 14:59 22:59 Intake Total 745 / 1845 395 / 395 Output Total 450 / 650 402 / 402 Balance 295 / 1195 -7 / -7 Intake: IV 545 / 1545 275 / 275 Vancomycin HCl 1,250 mg In 275 / 275 Sodium Chloride 0.9% 250 ml @ 200 mls/hr IV Q24H [facility] Rx#: [id number] Vancomycin HCl 2,250 mg In 545 / 545 Sodium Chloride 0.9% 500 ml @ 200 mls/hr IV NOW ONE Rx#: [id number] Oral 200 / 300 120 / 120 Output: Urine Amount (Catheter) 450 / 650 400 / 400 Suprapubic 450 / 650 400 / 400 # Bowel Movements 2 / 2 Other: Weight 104.9 kg 103.1 kg Weight Measurement Method Built in Bedscale Standing Scale Patient Weight 05/12/24 06:59 Weight 103.1 kg Diagnostic Findings Telemetry: Atrial fibrillation, heart rate averaging around 70 or 80, minimum heart rate in the 30s but only at night. PG Care Time/CCT Total # of Minutes Spent Total Time Spent with Patient: Total time spent is greater than 50% in coordination of care (as documented) at patient's floor/unit and/or counseling patient: Coding Level of Care Code 75608 INT INP/OBS CARE 3/75MIN Diagnoses Afib I48.91 Ischemic cardiomyopathy I25.5 Coronary artery disease involving [place] coronary artery of [place] heart without angina pectoris I25.10 Associated angina: without angina Coronary Disease-Associated Artery/Lesion type: [place] artery [place] vs. transplanted heart: [place] heart (3) Coronary artery disease Associated angina: without angina Coronary Disease-Associated Artery/Lesion type: [place] artery [place] vs. transplanted heart: [place] heart Qualified Code(s): I25.10 - Atherosclerotic heart disease of [place] coronary artery without angina pectoris
--- NOTE | 2024-05-11 15:03 | XCELERA ---
[id number] \\[email or web address]\[id number]
[2024-05-11] MEDS ORDERED: VANCOMYCIN HCL 1,250 MG in SODIUM CHLORIDE 0.9% 250 ML IV SCH (19:00)
[2024-05-11] MEDS: ALBUMIN 25% 25 GM/100 ML VIAL IV ONE (20:08)
[2024-05-12 06:36] LABS: Basophils # (auto) 0.04 K/uL (0.00-0.20); Basophils % (auto) 0.6 %; Eosinophils # (auto) 0.75 K/uL (0.00-0.50); Eosinophils % (auto) 12.1 %; Hematocrit (blood only) 42.7 % (42.0-52.0); Hemoglobin 13.6 g/dl (14.0-18.0); Immature Granulocytes # (auto) 0.03 K/uL (0.01-0.20); Immature Granulocytes % (auto) 0.5 %; Lymphocytes # (auto) 1.04 K/uL (1.20-3.40); Lymphocytes % (auto) 16.8 %; Mean Corpuscular Hemoglobin 29.9 pg (25.0-34.0); Mean Corpuscular Hgb Conc 31.9 g/dL (32.0-36.0); Mean Corpuscular Volume 93.8 fL (80.0-100.0); Mean Platelet Volume 10.4 fL (9.4-12.4); Monocytes # (auto) 1.02 K/uL (0.11-0.59); Monocytes % (auto) 16.5 %; Neutrophils # (auto) 3.31 K/uL (1.40-6.50); Neutrophils % (auto) 53.5 %; Platelet Count 163 K/uL (130-400); RDW Coefficient of Variation 14.7 % (11.5-14.5); RDW Standard Deviation 51.4 fL (36.4-46.3); Red Blood Count 4.55 M/uL (4.70-6.10); White Blood Count 6.19 K/ul (4.8-10.8)
[2024-05-12 06:59] LABS: Albumin Level 3.8 gm/dl (3.4-5.0); BUN Creatinine Ratio 20.5 (10-20); Bilirubin Direct 0.4 mg/dl (0-0.2); Bilirubin,Total 1.1 mg/dl (0.2-1.0); Calcium 9.4 mg/dl (8.6-10.3); Creatinine Clr Calc Pharmacy 44.6 ml/min; Est GFR (African American) 50.2 ml/min; Est GFR (Non-African American) 43.3 ml/min; Potassium 4.4 mmol/L (3.5-5.1); Total Protein 7.5 gm/dl (6.0-8.3)
--- NOTE | 2024-05-12 08:06 | Hospitalist Progress Note ---
Date of Service May 12, 2024 Assessment & Plan (1) Confusion: Plan: Altered mental status, acute metabolic encephalopathy in patient w/ possible underlying dementia , suspected 2nd to UTI/BHUPENDRA w/ dehydration and poor PO intake as well as recent long acting opiates/constipation Sent by palliative care provider for concerns of confusion/agitation, coughing w/ suprapubic discomfort. Recently started Oxycontin 10mg Q12h and was there for follow-up. 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 Home valsartan/torsemide placed on hold for BHUPENDRA/dehydration. Patient does endorse poor PO intake recently/lack of appetite w/ chemo/taste. Continued on Oxycontin 10mg BID, prn. However, was recently started as outpatient w/ palliative care and suspect worsened since that time PLACING OXYCONTIN ON HOLD, continue 5mg oxycodone IR prn in meantime. Suspect making constipation and confusion WORSE Urine cx w/ GNB this morning, discontinued Vancomycin. Urine cx resulted Pantoea (Entero) agglomerans, pansensitive except resistant to ampicillin/intermediate to Nitrofurantoin DISCONTINUING CEFEPIME --> SWITCHING TO ANCEF FOR NOW. Can complete course w/ Augmentin at mt. Could have increased confusion w/ cefepime use CXR w/ emphysema w/ pulm congestion. Biofire negative. Weight 104.9kg. Not hypoxic but was given 500cc NSS and given lasix 40mg PO x 1 Unfortunately, dropped his BP overnight to 60s/40s on 05/11 Pt does report having felt lightheaded/dizzy/confused last evening. Was given albumin IV x 1 w/ improvement in BP to 103/67 BP stable this morning but slightly dry. Cr bumped to 1.51, torsemide/valsartan remaining on hold. Oral fluids encouraged Repeat CXR w/ emphysema but no further congestion and was titrated from 2L to RA, 95% this afternoon ECHO obtained, IMPROVEMENT in EF to 45%. Cardiology consulted, recs for eliquis. Patient agreeable, started Eliquis 5mg BID. Continues metoprolol, rates controlled. Remains on telemetry. TSH wnl Had some increased confusion this morning, decision for MRI brain for completeness given not prior on AC --> MRI brain NEGATIVE for acute CVA Waxing/waning confusion/metabolic encephalopathy Did have on report yesterday but denied for today and reports needing to move his bowels. +BS on exam and per nursing did have LARGE BM this morning however patient reports this was SMALL. -->Was agreeable to suppository x 1. Monitor bowel movement. Check KUB for eval stool burden Lyme negative, anaplasmosis screening negative. Not having RUQ pain on exam but does have hx cirrhosis/prior spironolactone use. Ammonia prior checked and NOT elevated. Hepatitis panel pending. LFT elevation 2nd to hypotension/shock liver? B12 checked, low normal. ?2nd to metformin use. IM x 1, start PO supplementation Check overnight pulse ox for suspected EILEEN PT/OT consulted, continued eval. Patient NOT happy about continued inpatient stay but do not feel safe discharging in current state but if stable overnight can consider switching to PO and repeat therapy evals for possible home. Other cerda will need to consider neuro consult/psych for capacity to ensure able to make that decision as at some points does not seem to have capacity and at others is clearer. ?underlying depression playing a role as well. Monitor labs/exam on repeat. Daughter in room today during evaluation. (2) Afib: Plan: prior hx PE/DVT on coumadin but was discontinued per cards outpt note oct 2023 [place] unclear cause but patient didn't want to take anymore TSH wnl EKG on admission w/ afib, remains in afib on monitor but rates controlled and remains on metoprolol 100mg daily Repeat echo w/ IMPROVEMENT in EF Cardiology consulted, jasbir recommended and encouraged to patient given prior DECLINED and was AGREEABLE --> Started 5mg BID and should be continued at dc. Continued monitoring on telemetry, monitor electrolytes/keep stable (3) Acute kidney injury superimposed on stage 3b chronic kidney disease: Plan: Cr 1.7 on admission w/ baseline ~1.5 Suspect 2nd to poor PO intake +/- UTI as above Abx as outlined, home valsartan/torsemide on hold however did give lasix PO x 1 dose however drop in BP/slightly dry on exam today and bump in Cr back to 1.57 and will monitor for now as does not appear volume overloaded/on RA and CXR w/ improvement Continue to hold torsemide/valsartan Renal dose meds/avoid nephrotoxins BMP in AM (4) UTI (urinary tract infection): Plan: suspected, +UA/culture as above and SWITCHING TO ANCEF IV. 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 Keytruda transaminitis. HELD Does have hx cirrhosis on cardiology outpatient note. Ammonia level wnl on check, is moving his bowels however reporting constipation as above. KUB to be ordered HOLDING HOME OXYCONTIN, will continue breakthrough 5mg q6h prn as prior getting. No reports of ongoing pain at this time LFTs improved on repeat from admission. 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 HOWEVER, w/ HYPOTENSION overnight as above, appears similar Lyme negative, anaplasmosis smear w/o inclusion bodies Hepatitis panel added. Ammonia NOT elevated. Not having RUQ pain but if develops will need imaging Pending repeat LFTs, may need to reach out to Dr Tran in AM (6) Ischemic cardiomyopathy: Plan: Ischemic cardiomyopathy, history of CAD With echo 2022 with EF 30-35% most recently per outpatient note. Diuretic/valsartan placed on HOLD as above for BHUPENDRA on admission. Was given 500cc NSS, lasix PO x 1 No CP reported Remains on metoprolol, aspirin. PLACING ON ELIQUIS BID ABOVE given afib for stroke prevention Pepcid BID for GI proph, consider continuing at dc Repeat ECHO actually w/ IMPROVEMENT in EF, cards consulted. Eliquis as above Continue to monitor (7) DM2 (diabetes mellitus, type 2): Plan: DM2 Metformin held on admission, BSG AC/HS, SSI Discontinued glargine 7u BID as only on metformin, BSGs acceptable Has been declining insulin, however BSG checks acceptable and poor PO intake If no need for any further imaging, likely can just resume home metformin AM (pending renal function) (8) B12 deficiency: Plan: checked given metformin use/confusion low normal at 330, IM x 1 ordered and will plan to continue daily supplementation PO in AM and would continue at dc given ongoing metformin use Plan DVT prophylaxis: Heparin SQ while inpatient discontinue as placed on eliquis for afib as above daughter updated in room, patient agitated about being in hospital w ongoing waxing/waning mentation however not safe for dc at this time home oxycontin placed on hold, cefepime has been discontinued and working on bowel movement. if improvement in mentation w/ changes, can consider repeat therapy evals in AM to ensure ok for discharge home w/ HH? Admission and Anticipated Discharge Date Admission Date: May 10, 2024 Supervising Physician Co-Signing Physician Notes The patient was not seen by me. The chart was reviewed. Case discussed with BETSY Fabian. Agree with assessment and plan Subjective Attempted evaluation this morning, daughter in room but patient down to MRI for increased confusion overnight into this morning. Patient does report he felt lightheaded. Was able to tell me year 2023, month April but initially told me was in [place]. Waxing/waning confusion. MRI negative for acute CVA. Per nursing, did have BM this morning however patient reporting UNABLE to move his bowels/pass gas. +BS on exam, RN to administer suppository. Does wake from sleep with shortness of breath/sensation difficulty swallowing. Is on RA, CXR negative. Discussed possible sleep apnea, will check overnight sleep study given the nasal cannula didn't bother him. Started on eliquis and discussed continued use for stroke prevention, rafael given MRI negative at this time. Rates remain controlled in the 60-70s, no further drops or elevations w/ his drop in BP/albumin overnight. Denies CP/SOB this morning but reports he needs to get moving/tired of being in the hospital. Poor appetite at baseline but is tolerating diet. Some choking w/ pill last evening reported, ?anxious. WBC wnl. Discussed urine cx, de-escalation in abx as could have increased confusion with Cefepime use as well and may be delicate balance w/ underlying cancer/dehydration/heart failure/underlying neuropathy and did discuss B12 LOW and replacement to be ordered. Daughter tearful at end of encounter as patient reporting she has been keeping him here and made him come and he doesn't want to. Discussed if moving bowels, mentation stable, could potentially switch to PO antibiotics in the morning and if CLEARED by PT/OT could consider discharge but do have concerns for safety at home in current state/ability to care for himself. Physical Exam Physical Exam: General: 79 yo male sitting up in recliner chair, daughter in room, NAD HEENT: head atraumatic, normocephalic, mmm, trachea midline, HARD OF HEARING Resp: diminished in the bases, exp wheezing, no rales/crackles, on room air CV: irregularly irregular, +systolic murmur, trace LE edema, pulses present, calves nontender GI: +BS, soft/slight distension, nontender : olmedo draining yellow urine MSK/Neuro: nonfocal, answering questions appropriately, strength equal bilaterally, no slurred speech Plantar hallux bilaterally with superficial ulcer without discharge, warmth, erythema, tenderness. No lower extremity edema is present. Psych: alert /oriented to person/place/year Results & Data Results & Data Vital Signs (Past 12 Hours) Vital Signs Temp Pulse Resp BP BP Pulse Ox O2 Del Method 05/12/24 02:52 37.0 C 74 18 103/73 92 Nasal Cannula 05/11/24 22:43 36.9 C 69 18 110/70 95 Nasal Cannula 05/11/24 22:24 101/70 05/11/24 20:54 65 103/67 95 Room Air O2 Flow Rate 05/12/24 02:52 2 05/11/24 22:43 2 05/11/24 22:24 05/11/24 20:54 2 PG Care Time/CCT Total # of Minutes Spent Total Time Spent with Patient: Total time spent is greater than 50% in coordination of care (as documented) at patient's floor/unit and/or counseling patient: Coding Level of Care Code 04385 SUB INP/OBS CARE 3/50MIN Diagnoses Confusion R41.0 Afib I48.91 Acute kidney injury superimposed on stage 3b chronic kidney disease N17.9; N18.32 UTI (urinary tract infection) N39.0 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
--- NOTE | 2024-05-12 09:12 | XRay Report ---
XR chest 1V portable CLINICAL HISTORY: hypoxia, eval pulm edema TECHNIQUE: Single frontal radiograph of the chest was obtained. Comparison: Comparison is made to chest radiograph 05/10/2024 FINDINGS: No lines and tubes are seen. Cardiomegaly is noted. The lungs are clear. No evidence of pleural effus ion or pneumothorax. IMPRESSION: No acute chest disease. Cardiomegaly is noted. ACT 112: Negative or not required by law. Electronically signed by: Kareem Velez M.D. 05/12/2024 9:10 AM
[2024-05-12] MEDS: FAMOTIDINE 20MG IV PUSH 20 MG/5 ML SYR IV STA (10:58)
[2024-05-12] MEDS: APIXABAN 5 MG TABLET PO SCH (10:59)
[2024-05-12] MEDS ORDERED: VANCOMYCIN HCL 1,000 MG in SODIUM CHLORIDE 0.9% 250 ML IV SCH (12:00)
--- NOTE | 2024-05-12 14:18 | Magnetic Resonance Report ---
MRI OF THE BRAIN WITHOUT IV CONTRAST CLINICAL HISTORY: Change in mental status. COMPARISON STUDY: CT of the brain dated 05/10/2024. TECHNIQUE: MRI of the brain was performed utilizing various T1 and T2-weighted sequences in the axial , sagittal, and coronal planes. IV contrast was not administered for this examination. FINDINGS: Brain parenchyma: There is age related involutional change noting minimal microangiopathic disease. T here is no hemorrhage or mass effect. There is no restricted diffusion to suggest acute ischemia. Gra y-white matter differentiation is preserved. No extra-axial fluid collection is seen. The cerebellar tonsils are normal in configuration. Ventricles, sulci, and cisterns: Prominent secondary to involutional change. Pituitary and sella: Unremarkable. Intracranial vasculature: Normal flow voids are maintained at the skull base. Orbits: The bony orbits are grossly intact. Orbital contents are normal in appearance. Sinuses and mastoids: There is trace mucosal thickening within the ethmoid sinuses. The remaining par anasal sinuses are clear. There is trace right mastoid effusion. Calvarium: Unremarkable. Cervical cord: Partially visualized cervical spinal cord is normal in morphology and signal intensity . IMPRESSION: No acute intracranial abnormality. ACT 112: Negative or not required by law. Electronically signed by: Db Feliciano M.D. 05/12/2024 2:16 PM
--- NOTE | 2024-05-12 17:05 | XRay Report ---
KUB HISTORY: eval constipation burden COMPARISON: Abdomen and pelvis CT 12/17/2023. FINDINGS: The bowel gas pattern is unremarkable. There are no dilated loops of small bowel to suggest an obstruction. No renal calculi. No ureteral calculi. No pneumoperitoneum or pneumatosis. Mild to moderate fecal retention. There is a Ulloa catheter within the deep pelvis. IMPRESSION: 1. Nonobstructive bowel gas pattern. 2. Urto-yo-mfyagfkp fecal retention. ACT 112: Negative or not required by law. Electronically signed by: Kevyn Golden M.D. 05/12/2024 5:03 PM
[2024-05-12 17:44] LABS: Hep B Surface Ag with confirm Negative (Negative)
[2024-05-12 17:49] LABS: Hep C Ab Rflx HepCQuant RNA Negative (Negative)
[2024-05-12] MEDS: CYANOCOBALAMIN 1000 MCG/ML VIAL IM ONE (18:03)
[2024-05-12] MEDS: FAMOTIDINE 20MG IV PUSH 20 MG/5 ML SYR IV SCH (18:04)
[2024-05-12] MEDS: ceFAZolin 2000MG 2,000 MG/15 ML SYR IV SCH (18:04)
[2024-05-12] MEDS: bisacodyL 10 MG SUPP PR STA (18:05)
[2024-05-12] MEDS: OLANZapine 10 MG/2.1 ML SDV IM ONE (21:16)
[2024-05-12] MEDS: OLANZapine 10 MG/2.1 ML SDV IM STA (21:18)
--- NOTE | 2024-05-12 21:22 | Communication Note ---
Date of Service: May 12, 2024 Code candice called over head. Patient combative, throwing water, forcibly removed Ulloa. Resident to bedside. 5 mg IM Zyprexa ordered. Ulloa reportedly placed for retention. Will do voiding trial. Can re-place if retaining. PO meds changed to IV as appropriate. Nursing to reach out with further concerns. Resident Activity Tracking Resident Involvement: Resident Care Provided Care Provided: Adult Hospital Medicine
--- NOTE | 2024-05-13 00:20 | Urology Consultation ---
Date of Consultation May 13, 2024 Assessment & Plan (1) Penile cancer: (2) Urethral stricture: (3) Suprapubic catheter dysfunction: Plan 79-year-old male with penile cancer who his bladder is currently managed with an SP tube. He is admitted due to altered mental status and a suspected UTI and he ripped out his SP tube earlier tonight. Urology was consulted. Procedure: Patient was prepped and draped in a sterile fashion. I attempted to advance an 18 [place] catheter via his SP tube tract but it would not pass. I suspect the tract may have partially closed in the roughly 3 hours since it was removed. I downsized to a 16 [place] silicone catheter it was able to advance this in the bladder with return of [place] urine. Balloon was inflated with 10 cc of sterile water and this was set to gravity drainage. Maintain SP tube Please use mitts, restraints or medications in order to keep patient from ripping out his SP tube once again Patient has an appointment with urology on 05/25/2024 and we can keep this appointment Urology to sign off History of Present Illness Attending Physician: Javid Marcus MD History of Present Illness 79-year-old male with a history of penile cancer and stricture disease who had an SP tube placed by Dr. Mata on 03/26/2024. Patient has been admitted since 05/10/2024 for altered mental status. Suspicion is this is acute metabolic encephalopathy with possible underlying dementia secondary to a UTI. Urine culture grew out Pantoea agglomerans. Patient has been altered and reportedly ripped out his SP tube earlier this evening. Urology was consulted to replace. Allergies Allergy/AdvReac Type Severity Reaction Status Date / Time carvedilol [From Coreg] Allergy Unknown pt not sure Verified 03/26/24 07:05 ezetimibe [From Zetia] Allergy Unknown muscle Verified 03/26/24 07:05 aches fluvastatin Allergy Unknown muscle Verified 03/26/24 07:05 aches gemfibrozil Allergy Unknown muscle Verified 03/26/24 07:05 aches pravastatin Allergy Unknown muscle Verified 03/26/24 07:05 aches simvastatin Allergy Unknown muscle Verified 03/26/24 07:05 aches sulfamethoxazole Allergy Unknown pt not sure Verified 03/26/24 07:05 [From Bactrim] trimethoprim [From Bactrim] Allergy Unknown pt not sure Verified 03/26/24 07:05 Home Medications Medication Instructions Recorded Confirmed Type metoprolol succinate 100 mg 100 mg PO QAM 01/12/24 05/10/24 History tablet,extended release 24 hr polyethylene glycol 3350 17 17 g PO QAM 01/12/24 05/10/24 History gram/dose oral powder tamsulosin 0.4 mg capsule 0.4 mg PO BID 01/12/24 05/10/24 History torsemide 10 mg tablet 10 mg PO DAILY PRN Weight Gain 01/12/24 05/10/24 History tramadol 50 mg tablet 50 mg PO UD PRN Pain 01/12/24 05/10/24 History valsartan 160 mg tablet 80 mg PO BID 01/12/24 05/10/24 History ascorbic acid (vitamin C) 1,000 mg 1 g PO QAM 01/14/24 05/10/24 History tablet (Vitamin C) aspirin 81 mg tablet,delayed 81 mg PO QAM 01/14/24 05/10/24 History release cholecalciferol (vitamin D3) 50 50 mcg PO QAM 01/14/24 05/10/24 History mcg (2,000 unit) capsule (Vitamin D3) metformin 500 mg tablet 500 mg PO BID 01/14/24 05/10/24 History mineral oil-hydrophil petrolat 1 applic topical UD PRN catheter 01/14/24 05/10/24 History topical ointment area oxybutynin chloride 5 mg 5 mg PO DAILY #30 tabs 03/29/24 05/10/24 Rx tablet,extended release 24 hr lidocaine 5 % topical ointment 1 applic topical TID PRN pain #30 04/02/24 05/10/24 Rx grams oxycodone 10 mg tablet,crush 10 mg PO Q12H cancer pain 1 month 04/29/24 05/10/24 Rx resistant,extended release 12 hr #60 tabs (OxyContin) oxycodone 5 mg tablet 5 mg PO .Q4-6H PRN Pain 05/10/24 05/10/24 History Patient History Medical History History of pulmonary embolism Hx MRSA infection (12/2023) foot ulcers, treated w/ Vanco at [facility] Hx of sepsis (01/18/24) admitted at [facility] w/ sepsis from foot ulcers Hx of diabetic foot ulcer (12/2023) right and left big toe; in process of healing, seeing [facility] wound clinic Cirrhosis 12/17/2023 Diabetes mellitus NIDDM History of COVID-19 (~2021) Neuropathy Hospice care patient for past 2 yrs. Kidney disease unknown details Ulloa catheter in place History of UTI multiple Penile cancer dx 2021 Sleep apnea suspected/sleep study yrs ago/oxygen recommended pt declined. Shortness of breath mostly at night. Poor historian Coronary artery disease 1997: LAD 70, LCX [place], RCA 90, failed balloon angioplasty; NSTEMI 2017, patient declined cath; per [facility] records History of CO (myocardial infarction) 4 or 5/last one a few yrs ago. Surgical History History of eyelid surgery History of urologic surgery multiple on penis. most recent in office procedure december 2023. History of cardiac cath hx x 1 attempted/unsuccessful. sx was recommended "told never would live through it" Social History Smoking Status: Former smoker Second Hand Exposure: No; Do You Dip or Chew Tobacco: No; Hx Alcohol Use: No Hx Substance Use: No Preferred Language: Polish Communication Ability: Effective Behavioral Health Worker Required: No Beliefs That Will Affect Care: None Current Living Situation: Alone Feels Safe at Home: Yes Assistive Devices: Cane Physical Exam Physical Exam: General: Alert and oriented, no acute distress HEENT: Normocephalic, mucous membranes moist Pulmonary: Nonlabored respirations Abdomen: Nondistended. Suprapubic tract patent appearing. Extremities: Moves all 4 spontaneously Neuro: No gross deficits Skin: Warm, dry, no rashes noted Results & Data Vital Signs (Past 12 Hours) Vital Signs Temp Pulse Resp BP BP Pulse Ox O2 Del Method 05/12/24 22:05 Room Air 05/12/24 19:28 36.8 C 95 H 18 96/57 L 93 Room Air 05/12/24 17:39 36.9 C 94 H 18 103/67 98 Room Air 05/12/24 12:38 36.6 C 79 18 113/69 95 Room Air PG Care Time/CCT Total # of Minutes Spent Total Time Spent with Patient: Total time spent is greater than 50% in coordination of care (as documented) at patient's floor/unit and/or counseling patient: Coding Level of Care Code 22404 INT INP/OBS CARE Diagnoses Penile cancer C60.9 Urethral stricture N35.919 Suprapubic catheter dysfunction T83.010A
[2024-05-13] MEDS: HALOPERIDOL LACTATE 5 MG/ML 1 ML VIAL IM STA (00:29)
[2024-05-13] MEDS: OLANZapine 10 MG/2.1 ML SDV IM STA (02:00)
--- NOTE | 2024-05-13 06:51 | Communication Note ---
Date of Service: May 13, 2024 Of note, patient did not have a Ulloa catheter, but a suprapubic catheter. Urologist contract paralegal contacted, Dr. Sadler. Per hospital protocol nursing is unable to replace SP catheters. Catheter replaced by Dr. Sadler. Given 5 mg IM Haldol as well. Patient did become combative again requiring 4 point restraints and 7.5 mg Zyprexa IM. Of note the catheter tubing was damaged when patient was thrashing and kicking. Leaking fluid, but still draining the bladder so it was not replaced at that time. Resident Activity Tracking Resident Involvement: Resident Care Provided Care Provided: Adult [facility] Medicine
--- NOTE | 2024-05-13 08:06 | Hospitalist Progress Note ---
Date of Service May 13, 2024 Assessment & Plan (1) Confusion: Plan: Altered mental status, acute metabolic encephalopathy in patient w/ possible underlying dementia , suspected 2nd to UTI/BHUPENDRA w/ dehydration and poor PO intake as well as recent long acting opiates/constipation Sent by palliative care provider for concerns of confusion/agitation, coughing w/ suprapubic discomfort. Recently started Oxycontin 10mg Q12h and was there for follow-up. 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 Home valsartan/torsemide placed on hold for BHUPENDRA/dehydration. Patient does endorse poor PO intake recently/lack of appetite w/ chemo/taste. Continued on Oxycontin 10mg BID, prn. However, was recently started as outpatient w/ palliative care and suspect worsened since that time PLACING OXYCONTIN ON HOLD PM 05/12, continue 5mg oxycodone IR prn in meantime. Suspect making constipation and confusion WORSE Urine cx w/ GNB this morning, discontinued Vancomycin. Urine cx resulted Pantoea (Entero) agglomerans, pansensitive except resistant to ampicillin/intermediate to Nitrofurantoin DISCONTINUING CEFEPIME --> SWITCHING TO ANCEF FOR NOW. Can complete course w/ Augmentin at [place]. Could have increased confusion w/ cefepime use CXR w/ emphysema w/ pulm congestion. Biofire negative. Weight 104.9kg. Not hypoxic but was given 500cc NSS and given lasix 40mg PO x 1 Unfortunately, dropped his BP overnight to 60s/40s on 05/11 Pt does report having felt lightheaded/dizzy/confused last evening. Was given albumin IV x 1 w/ improvement in BP to 103/67 BP stable this morning but slightly dry. Cr bumped to 1.51, torsemide/valsartan remaining on hold. Oral fluids encouraged Repeat CXR w/ emphysema but no further congestion and was titrated from 2L to RA, 95% this afternoon ECHO obtained, IMPROVEMENT in EF to 45%. Cardiology consulted, recs for eliquis. Patient agreeable, started Eliquis 5mg BID. Continues metoprolol, rates controlled. Remains on telemetry. TSH wnl 05/12 Ongoing metabolic encephalopathy Had some increased confusion AM 05/12 -decision for MRI brain for completeness given not prior on AC for completeness MRI brain NEGATIVE for acute CVA. Mentation improved/slightly better following but does have some periods of waxing/waning Interestingly complains of ongoing constipation issues 05/12 (prior reported did have BM on 05/11 however) Asked RN to give suppository as patient insistent on moving bowels but RN reported did have LARGE BM 05/12 however did check KUB prior to suppository and noted mild-moderate fecal retention and suppository given with actual LARGE BM in the evening. Lyme testing negative. Peripheral smear not noting any inclusion bodies. No RUQ pain on exam. Ammonia NOT elevated. Hep panel pending. ?LFT elevation 2nd to drop in BP prior to admission? B12 checked/low normal - IM x 1, continues on PO supplementation Does have snoring, concerns for EILEEN, attempted overnight pulse ox however see below had agreession/agitation overnight and was not able to perform PT/OT consulted, continued eval. Patient NOT happy about continued inpatient stay but do not feel safe discharging in current state but if stable overnight can consider switching to PO and repeat therapy evals for possible home. ?psych eval for capacity, neuro for additional recs 05/13 WORSENED Agitation/aggression overnight. Suspect combination of possible underlying dementia/mild cognitive impairment (borderline B12) in setting of ongoing chemotherapy with RECENT OXYCONTIN use for pain control and worsened constipation contributing to presentation but also could have been worsened by IV abx medication use w/ cefepime empirically on admission which has been discontinued. Required Haldol 5mg IM x 1, followed by Zyprexa 7.5mg IM for ongoing aggression and pulling out his suprapubic catheter. Catheter replaced by Dr Sadler overnight x 2, restraints placed for safety/1:1 Discussed w/ supervising provider, and have made seroquel BID, IM zyprexa available as needed Removed LE restraints this morning, currently in b/l soft limb early this afternoon. Given oxycodone 5mg x 1 for pain, cautious use. do not want him to have withdrawal either. Did have LARGE BM overnight reported by nursing staff Remains on Ancef IV for urinary coverage Agitation this afternoon again and Zyprexa IM x 1 for safety and renewed 4 point soft limb restraints WBC is wnl and patient remaining afebrile. Do suspect has underlying sleep apnea and ? if retaining CO2. Will check VBG/BiPAP if needed (if needing, consider tx to PCU for higher level of care) IVF NS @ 80cc/hr. Torsemide/valsartan remain on hold for dehydration/poor PO intake today due to such. thiamine IV empiric (however denied hx drinking). Asked supervising provider to see as well. Updated daughter via phone this afternoon, not visiting to prevent worsening agitation but will be here tomorrow. Continue telemetry monitoring.Consideration for CTAP if needing further eval/ongoing confusion, neuro consult (2) Afib: Plan: hx PE/DVT on coumadin. Prior CTA in march neg for PE. Had NOT been on anticoagulation, didn't want to take anymore and not trusting of new medications TSH wnl during admission EKG w/ afib, remains stable rate control on monitor Metoprolol 100mg continued ECHO obtained, imrpovement in EF Cards consulted, patient agreeable and started/continues on eliquis 5mg BID MRI brain negative 05/12 Continiue telemetry monitoring (3) Acute kidney injury superimposed on stage 3b chronic kidney disease: Plan: Cr 1.7 on admission w/ baseline ~1.5 Suspect 2nd to poor PO intake +/- UTI as above and ongoing diuretic use Home valsartan/torsemide on hold, did get dose of lasix PO x 1 w/ drop in BP and no further provided and encouraged PO intake/avoided IVF upfront given prior reduced EF which imprvoed on repeat ECHO Renal dose meds/avoid nephrotoxins Renal profile in AM (4) UTI (urinary tract infection): Plan: suspected, +UA/culture as above and SWITCHED TO ANCEF IV. 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 Keytruda transaminitis. HELD Does have hx cirrhosis on cardiology outpatient note. Ammonia level wnl on check, is moving his bowels however reporting constipation as above. KUB ordered/suppository as above w/ large BM and less distension/soft on exam Home OXYCONTIN placed on HOLD as above, Oxy IR 5mg available prn as prior taking before recent switch LFTs stable but remain elevated but did have drop in BP 2 days ago and ?shock Lyme negative, anaplasmosis smear w/o inclusion bodies Hepatitis panel added/pending. Ammonia NOT elevated. Not having RUQ pain but if develops will need imaging ?need for CTAP (6) Ischemic cardiomyopathy: Plan: Ischemic cardiomyopathy, history of CAD With echo 2022 with EF 30-35% most recently per outpatient note. Diuretic/valsartan placed on HOLD as above for BHUPENDRA on admission. Was given 500cc NSS, lasix PO x 1 but holding prior No CP reported Remains on metoprolol, aspirin. PLACING ON ELIQUIS BID ABOVE. Heparin SQ discontinued Pepcid BID for GI proph ECHO w/ improvement in EF. Cards consulted - see note Remains on telemetry (7) DM2 (diabetes mellitus, type 2): Plan: DM2 Metformin held on admission, BSG AC/HS, SSI Discontinued glargine 7u BID as only on metformin, BSGs acceptable Has been declining insulin, however BSG checks acceptable and poor PO intake (8) B12 deficiency: Plan: checked given metformin use/confusion low normal at 330, IM x 1 ordered and continues on PO supplementation Plan DVT prophylaxis: Eliquis 5mg BID continued inpatient stay, restraints for safety. continues on abx. holding oxycontin BID and utilize prn if/when needed for pain. Seroquel 25mg PO BID per supervising provider w/ Zyprexa IM if needed for agitation/aggression. IVF for dehydration/poor PO intake. Empiric thiamine IV however no prior alcohol use hx Checking VBG/BiPAP if needed for any CO2 retention. If elevated, consider moving to PCU Continued therapy evals while inpatient as able once improving to ensure actually able to go home safely Admission and Anticipated Discharge Date Admission Date: May 10, 2024 Supervising Physician Co-Signing Physician Notes The patient was not seen by me. The chart was reviewed. Case discussed with BETSY Fabian. Agree with assessment and plan Subjective Resting in bed upon entry. had eventful night w/ agitation/aggression and pulled out catheter x 2, urology consulted and replaced. Restraints ordered but removed lower limb this morning. Patient w/ garbled speech at times, did appear slightly uncomfortable and was given dose oxycodone. Discussed w/ nursing prior OxyContin use and may need to give some to prevent withdrawal. Limited PO intake, 1:1 in room has been able to get some sips into him. Did report patient had a LARGE bowel movement overnight reported after the suppository. Abdomen is much less distended/softer today. Daughter called in for update this morning, not visited. Will plan to call her with update this afternoon. Physical Exam Physical Exam: General: 79 yo in bed, b/l UE soft limb restraint in place, awake and able to answer some questions but not making sense at times, some garbled speech/dry mouth Head atraumatic, normocephalic, mm DRY, trachea midline Resp: even/unlabored, no obvious w/c/r, on room air this afternoon. Some periods of apnea when sleeping CV: irregularly irregular, rates controlled. trace pedal edema/calves nontender GI: +BS throughout, SOFTER/LESS DISTENDED, no overt tenderness/guarding to palpation Suprapubic catheter w/ concentrated urine MSK/Neuro/Psych: alert to person, not place/time/events, not able to follow commands at this time. speech garbled but just given oxycodone for pain Results & Data Results & Data Vital Signs (Past 12 Hours) Vital Signs Temp Pulse Pulse Resp BP Pulse Ox O2 Del Method 05/13/24 06:05 85 05/13/24 03:46 37.1 C 96 H 18 164/76 H 92 Room Air 05/13/24 00:00 36.9 C 85 18 105/65 92 Room Air 05/12/24 22:05 Room Air Laboratory Results Chest X-Ray 05/12/24 08:04 XR chest 1V portable CLINICAL HISTORY: hypoxia, eval pulm edema TECHNIQUE: Single frontal radiograph of the chest was obtained. Comparison: Comparison is made to chest radiograph 05/10/2024 FINDINGS: No lines and tubes are seen. Cardiomegaly is noted. The lungs are clear. No evidence of pleural effusion or pneumothorax. IMPRESSION: No acute chest disease. Cardiomegaly is noted. ACT 112: Negative or not required by law. Electronically signed by: Kareem Velez M.D. 05/12/2024 9:10 AM Brain MRI 05/12/24 09:33 MRI OF THE BRAIN WITHOUT IV CONTRAST CLINICAL HISTORY: Change in mental status. COMPARISON STUDY: CT of the brain dated 05/10/2024. TECHNIQUE: MRI of the brain was performed utilizing various T1 and T2-weighted sequences in the axial, sagittal, and coronal planes. IV contrast was not administered for this examination. FINDINGS: Brain parenchyma: There is age related involutional change noting minimal microangiopathic disease. There is no hemorrhage or mass effect. There is no restricted diffusion to suggest acute ischemia. Davis-white matter differentiation is preserved. No extra-axial fluid collection is seen. The cerebellar tonsils are normal in configuration. Ventricles, sulci, and cisterns: Prominent secondary to involutional change. Pituitary and sella: Unremarkable. Intracranial vasculature: Normal flow voids are maintained at the skull base. Orbits: The bony orbits are grossly intact. Orbital contents are normal in appearance. Sinuses and mastoids: There is trace mucosal thickening within the ethmoid sinuses. The remaining paranasal sinuses are clear. There is trace right mastoid effusion. Calvarium: Unremarkable. Cervical cord: Partially visualized cervical spinal cord is normal in morphology and signal intensity. IMPRESSION: No acute intracranial abnormality. ACT 112: Negative or not required by law. Electronically signed by: Db Feliciano M.D. 05/12/2024 2:16 PM KUB X-Ray 05/12/24 16:15 KUB HISTORY: eval constipation burden COMPARISON: Abdomen and pelvis CT 12/17/2023. FINDINGS: The bowel gas pattern is unremarkable. There are no dilated loops of small bowel to suggest an obstruction. No renal calculi. No ureteral calculi. No pneumoperitoneum or pneumatosis. Mild to moderate fecal retention. There is a Ulloa catheter within the deep pelvis. IMPRESSION: 1. Nonobstructive bowel gas pattern. 2. Sftf-hw-rxroiusz fecal retention. ACT 112: Negative or not required by law. Electronically signed by: Kevyn Golden M.D. 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
[2024-05-13 08:27] LABS: Basophils # (auto) 0.06 K/uL (0.00-0.20); Basophils % (auto) 0.9 %; Eosinophils # (auto) 0.78 K/uL (0.00-0.50); Hematocrit (blood only) 44.9 % (42.0-52.0); Hemoglobin 14.4 g/dl (14.0-18.0); Immature Granulocytes # (auto) 0.02 K/uL (0.01-0.20); Immature Granulocytes % (auto) 0.3 %; Lymphocytes # (auto) 0.93 K/uL (1.20-3.40); Lymphocytes % (auto) 14.4 %; Mean Corpuscular Hemoglobin 29.5 pg (25.0-34.0); Mean Corpuscular Hgb Conc 32.1 g/dL (32.0-36.0); Monocytes # (auto) 1.21 K/uL (0.11-0.59); Monocytes % (auto) 18.7 %; Neutrophils # (auto) 3.48 K/uL (1.40-6.50); Neutrophils % (auto) 53.7 %; Platelet Count 163 K/uL (130-400); RDW Coefficient of Variation 14.4 % (11.5-14.5); RDW Standard Deviation 48.5 fL (36.4-46.3); Red Blood Count 4.88 M/uL (4.70-6.10); White Blood Count 6.48 K/ul (4.8-10.8)
[2024-05-13 08:45] LABS: Albumin Level 3.9 gm/dl (3.4-5.0); BUN Creatinine Ratio 20.3 (10-20); Bilirubin Direct 0.3 mg/dl (0-0.2); Bilirubin,Total 0.9 mg/dl (0.2-1.0); Calcium 9.7 mg/dl (8.6-10.3); Creatinine Clr Calc Pharmacy 45.5 ml/min; Est GFR (African American) 51.4 ml/min; Est GFR (Non-African American) 44.4 ml/min; Potassium 4.2 mmol/L (3.5-5.1); Total Protein 7.6 gm/dl (6.0-8.3)
[2024-05-13] MEDS: CYANOCOBALAMIN (B-12) 500 MCG TABLET PO SCH (08:51)
[2024-05-13] MEDS: QUEtiapine FUMARATE 25 MG TABLET PO SCH (08:55)
[2024-05-13] MEDS: oxyCODONE HCL IR 5 MG TAB (IMMEDIATE RELEASE) PO PRN (15:18)
[2024-05-13] MEDS: SODIUM CHLORIDE 0.9% 1,000 ML IV SCH (16:12)
[2024-05-13] MEDS: THIAMINE HCL 200 MG in SODIUM CHLORIDE 0.9% 50 ML IV STA (17:08)
[2024-05-13] MEDS: OLANZapine 10 MG/2.1 ML SDV IM PRN (17:47)
[2024-05-13 19:13] LABS: Base Excess VBG 2.2 mEq/L; HCO3 VBG 28 mmol/L; Oxygen Saturation VBG 79.8 %; PCO2 VBG 49 mmHg (38-50); PO2 VBG 46 mmHg; pH VBG 7.37 (7.36-7.41)
[2024-05-13] MEDS: THIAMINE HCL 200 MG in SODIUM CHLORIDE 0.9% 50 ML IV SCH (20:53)
--- NOTE | 2024-05-14 08:52 | Hospitalist Progress Note ---
Date of Service May 14, 2024 Assessment & Plan (1) Confusion: Plan: Altered mental status, acute metabolic encephalopathy in patient w/ possible underlying dementia , suspected 2nd to UTI/BHUPENDRA w/ dehydration and poor PO intake as well as recent long acting opiates/constipation Sent by palliative care provider for concerns of confusion/agitation, coughing w/ suprapubic discomfort. Recently started Oxycontin 10mg Q12h and was there for follow-up. 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 Home valsartan/torsemide placed on hold for BHUPENDRA/dehydration. Patient does endorse poor PO intake recently/lack of appetite w/ chemo/taste. Continued on Oxycontin 10mg BID, prn. However, was recently started as outpatient w/ palliative care and suspect worsened since that time PLACING OXYCONTIN ON HOLD PM 05/12, continue 5mg oxycodone IR prn in meantime. Suspect making constipation and confusion WORSE Urine cx w/ GNB this morning, discontinued Vancomycin. Urine cx resulted Pantoea (Entero) agglomerans, pansensitive except resistant to ampicillin/intermediate to Nitrofurantoin DISCONTINUING CEFEPIME --> SWITCHING TO ANCEF FOR NOW. Can complete course w/ Augmentin at ia. Could have increased confusion w/ cefepime use CXR w/ emphysema w/ pulm congestion. Biofire negative. Weight 104.9kg. Not hypoxic but was given 500cc NSS and given lasix 40mg PO x 1 Unfortunately, dropped his BP overnight to 60s/40s on 05/11 Pt does report having felt lightheaded/dizzy/confused last evening. Was given albumin IV x 1 w/ improvement in BP to 103/67 BP stable this morning but slightly dry. Cr bumped to 1.51, torsemide/valsartan remaining on hold. Oral fluids encouraged Repeat CXR w/ emphysema but no further congestion and was titrated from 2L to RA, 95% this afternoon ECHO obtained, IMPROVEMENT in EF to 45%. Cardiology consulted, recs for eliquis. Patient agreeable, started Eliquis 5mg BID. Continues metoprolol, rates controlled. Remains on telemetry. TSH wnl 05/12 Ongoing metabolic encephalopathy Had some increased confusion AM 05/12 -decision for MRI brain for completeness given not prior on AC for completeness MRI brain NEGATIVE for acute CVA. Mentation improved/slightly better following but does have some periods of waxing/waning Interestingly complains of ongoing constipation issues 05/12 (prior reported did have BM on 05/11 however) Asked RN to give suppository as patient insistent on moving bowels but RN reported did have LARGE BM 05/12 however did check KUB prior to suppository and noted mild-moderate fecal retention and suppository given with actual LARGE BM in the evening. Lyme testing negative. Peripheral smear not noting any inclusion bodies. No RUQ pain on exam. Ammonia NOT elevated. Hep panel pending. ?LFT elevation 2nd to drop in BP prior to admission? B12 checked/low normal - IM x 1, continues on PO supplementation Does have snoring, concerns for EILEEN, attempted overnight pulse ox however see below had agreession/agitation overnight and was not able to perform PT/OT consulted, continued eval. Patient NOT happy about continued inpatient stay but do not feel safe discharging in current state but if stable overnight can consider switching to PO and repeat therapy evals for possible home. ?psych eval for capacity, neuro for additional recs 05/13 WORSENED Agitation/aggression overnight. Suspect combination of possible underlying dementia/mild cognitive impairment (borderline B12) in setting of ongoing chemotherapy with RECENT OXYCONTIN use for pain control and worsened constipation contributing to presentation but also could have been worsened by IV abx medication use w/ cefepime empirically on admission which has been discontinued. Required Haldol 5mg IM x 1, followed by Zyprexa 7.5mg IM for ongoing aggression and pulling out his suprapubic catheter. Catheter replaced by Dr Sadler overnight x 2, restraints placed for safety/1:1 Discussed w/ supervising provider, and have made seroquel BID, IM zyprexa available as needed Removed LE restraints, utilized b/l UE soft limbs. Oxy IR 5mg x1 for pain. LARGE BM overnight reported by staff. Ancef continued for urinary coverage. Restraints then renewed w/ increased agitation and Zyprexa 5mg IM x 1 WBC wnl and no fever. Overnight pulse ox w/ DROPs, suspect underling EILEEN. 2L HS VBG WITHOUT CO2 retention Placed on IVF/IV thiamine, supervising provider to see 05/14 Required Zyprexa IM x 1 last evening for increased agitation after removal of lower extremity restraints in the morning and were renewed for 4 point. 1:1 for safety. Going to attempt again to remove lower limb restraints this morning, presently in upper soft limbs IVF continued/resumed but at lower rate. Continue Thiamine IV Home OXYCONTIN ON HOLD, IR available if needed OXYBUTYNIN placed on HOLD. CTAP obtained for further eval given prior constipation/possible missing something? CTAP impression: * There is left basilar consolidation. This could represent atelectasis versus an infectious/inflammatory pneumonitis. Clinical correlation will be required. * The bladder is decompressed by a suprapubic catheter and appears thick-walled with surrounding infiltration. Correlate with clinical findings and urinalysis. * Cardiomegaly. * Left-sided nephrolithiasis. * Pathologic left inguinal lymphadenopathy is again noted. Neoplasm is the diagnosis of exclusion. Correlate with the medical/oncological history. NO EVIDENCE FOR CIRRHOSIS DESPITE PRIOR DOCUMTED HX. NO HX ETOH US Did have additional larger BM overnight into today per nursing staff. ABdomen soft/nontender on exam Ancef continue IV for now/adjustment if needed however labs reviewed and WBC wnl, hgb stable. Electrolytes stable and renal function improved. REPEAT URINE CX given possible new infection not covered w/ recent catheter exchange Updated family at bedside. Suspect had constipation/UTI on admission and possible worsened w/ ongoing Cefepime use empirically before able to de-escalate and was continued on Oxycontin which was new in the prior week w/ palliative provider but then by the time that was decided to be placed on hold patient had agitation in afternoon/evening 05/12 and was given Haldol 5mg IM x 1, followed by Zyprexa 7.5mg IM and then required additional dose last evening and could be multifactorial. Remains on eliquis BID, MRI brain negative for CVA. Did place consult for psych to assist w/ medication management for psychosis/agitation -- Remains on seroquel 25mg PO BID per supervising provider for now. -- Zyprexa available prn but will decrease to 2.5mg IM dose. Continue tele monitoring (2) Afib: Plan: hx PE/DVT on coumadin. Prior CTA in march neg for PE. Had NOT been on anticoagulation, didn't want to take anymore and not trusting of new medications TSH wnl during admission EKG w/ afib, remains stable rate control on monitor Metoprolol 100mg continued ECHO obtained, improvement in EF Cards consulted, patient agreeable and started/continues on eliquis 5mg BID MRI brain negative 05/12 Continiue telemetry monitoring (3) Acute kidney injury superimposed on stage 3b chronic kidney disease: Plan: Cr 1.7 on admission w/ baseline ~1.5 Suspect 2nd to poor PO intake +/- UTI as above and ongoing diuretic use Home valsartan/torsemide on hold, did get dose of lasix PO x 1 w/ drop in BP and no further provided and encouraged PO intake/avoided IVF upfront given prior reduced EF which imprvoed on repeat ECHO Diuretics on hold, IVF due to above and renal function stable Renal dose meds/avoid nephrotoxins Renal profile in AM (4) UTI (urinary tract infection): Plan: suspected, +UA/culture as above and SWITCHED TO ANCEF IV. 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 Keytruda transaminitis. HELD Reported hx cirrhosis in chart, ammonia checked and WNL CTAP however NOT mentioning any cirrhosis Suspect prior drop in BP and outside hospital/EMS in palliative note w/ "undetected BP" could have contributed to current presentation/shock liver? Lyme neg, periph smear neg. Hep panel pending. CTAP noted LFTs almost completely normal today. Avoid hepatotoxin medications. LFTs in AM (6) Ischemic cardiomyopathy: Plan: Ischemic cardiomyopathy, history of CAD With echo 2022 with EF 30-35% most recently per outpatient note. Diuretic/valsartan placed on HOLD as above for BHUPENDRA on admission. Was given 500cc NSS, lasix PO x 1 but holding prior No CP reported Remains on metoprolol, aspirin. PLACING ON ELIQUIS BID ABOVE. Heparin SQ discontinued Pepcid BID for GI proph ECHO w/ improvement in EF. Cards consulted - see note Remains on telemetry (7) DM2 (diabetes mellitus, type 2): Plan: DM2 Metformin held on admission, BSG AC/HS, SSI Discontinued glargine 7u BID as only on metformin, BSGs acceptable Has been declining insulin, however BSG checks acceptable and poor PO intake (8) B12 deficiency: Plan: checked given metformin use/confusion low normal at 330, IM x 1 ordered Continues on PO supplementation Plan DVT prophylaxis: Eliquis 5mg BID continued Ongoing encephalopathy/confusion. Remains w/ restraints and attempting to remove as able. 1:1/sitter for safety as needed. Seroquel BID continued, psych consult in place. VBG without CO2 retention but do suspect has degree of underlying EILEEN. Rec outpt sleep study/2L HS in meantime. Remains on Ancef for now, but repeat UA/cx pending given cath exchange and may need to adjust abx pending results but WBC wnl/afebrile at this time. IVF/thiamine continued Updated daughter/son at bedside, additional update to son on phone w/ daughter in room per request to review plan of care/prior events Therapy evals ordered, as able. Patient prior wishes to return home. Admission and Anticipated Discharge Date Admission Date: May 10, 2024 Supervising Physician Co-Signing Physician Notes The patient was not seen by me. The chart was reviewed. Case discussed with BETSY Fabian. Agree with assessment and plan Subjective Eval this afternoon, son/daughter at bedside. Remains w/ ongoing confusion/encephalopathy. Trying to answer questions at times but difficult to understand. Upper b/l mitts in place, hopefully could attempt removal. Overnight sleep study w drops, does have some senthil when sleeping as well. Labs stable, no leukocytosis/fever. Renal function stable. CXR w/ some congestion but stable on NC at this time and lack of PO/continue IV Had another large BM overnight, abdomen soft. Did obtain CTAP for further eval, nothing overly concerning but will plan to repeat ua/cx given catheter exchange prior to ensure no new bacteria needing treated. Remains on Ancef IV. Update to brother Jameson on phone in room at end of encounter to discuss Mr Katz case. Suspect oxycontin w/ constipation on admission w/ UTI likely contributed but continued on pain medication given was stable while tx UTI but then worsened and held. MRI negative for CVA> Eliquis continued. Discussed antipsychotic medications and will also reach out to psych for additional recs but need to keep patient safe and may need if aggressive/safety issue. Last dose Zyprexa LAST evening, remains on lower dose seroquel. Continued inpatient stay, hopefully medications washing out of sx/will monitor repeat urine cx/adjust abx if needed. Questions/concerns addressed at this time. Physical Exam Physical Exam: General: 79 yo in bed, b/l UE soft limb restraint in place, awake and attempting to answer questions at times but difficulty due to mental status. no aggression at this time but mild agitation at times Head atraumatic, normocephalic, mm DRY, trachea midline,pupils reactive but decreased slightly, eyes open with sleeping at times (reported unusual per daughter at bedside) Resp: even/unlabored, faint bibasilar crackles, no wheezing/rales, on room air/2L at times CV: irregularly irregular, rates controlled (senthil at times w/ sleeping but no pauses). trace pedal edema/calves nontender GI: +BS throughout, SOFTER/LESS DISTENDED, no overt tenderness/guarding to palpation Suprapubic catheter w/ concentrated urine MSK/Neuro/Psych: alert to person, not place/time/events, not able to follow commands at this time. speech garbled slightly at times Results & Data Results & Data Vital Signs (Past 12 Hours) Vital Signs Temp Pulse Pulse Pulse Resp BP Pulse Ox 05/14/24 07:27 36.4 C L 66 18 122/82 94 05/14/24 07:05 05/14/24 05:59 82 05/14/24 03:41 36.7 C 76 20 162/82 H 93 05/14/24 01:55 79 05/13/24 23:18 36.8 C 85 22 142/68 H 92 05/13/24 22:05 80 05/13/24 21:42 Pulse Ox O2 Del Method O2 Del Method O2 Flow Rate O2 Flow Rate 05/14/24 07:27 Nasal Cannula 2 05/14/24 07:05 Nasal Cannula 2 05/14/24 05:59 05/14/24 03:41 Nasal Cannula 2 05/14/24 01:55 91 Nasal Cannula 2 05/13/24 23:18 Room Air 05/13/24 22:05 93 Room Air 05/13/24 21:42 Room Air Laboratory Results 05/14/24 05/14/24 05/14/24 Range/Units 13:15 12:01 11:19 WBC (4.8-10.8) K/ul RBC (4.70-6.10) M/uL Hgb (14.0-18.0) g/dl Hct (42.0-52.0) % MCV (80.0-100.0) fL MCH (25.0-34.0) pg MCHC (32.0-36.0) g/dL RDW Std Deviation (36.4-46.3) fL RDW Coeff of Manuel (11.5-14.5) % Plt Count (130-400) K/uL MPV (9.4-12.4) fL Immature Gran % (Auto) % Neut % (Auto) % Lymph % (Auto) % [place] % (Auto) % Eos % (Auto) % Baso % (Auto) % Neut # (Auto) (1.40-6.50) K/uL Lymph # (Auto) (1.20-3.40) K/uL [place] # (Auto) (0.11-0.59) K/uL Eos # (Auto) (0.00-0.50) K/uL Baso # (Auto) (0.00-0.20) K/uL Immature Gran # (Auto) (0.01-0.20) K/uL VBG pH 7.38 (7.36-7.41) VBG pCO2 47 (38-50) mmHg VBG pO2 39 mmHg VBG HCO3 28 mmol/L VBG O2 Saturation 76.8 % VBG Base Excess 2.0 mEq/L Sodium (136-145) mmol/L Potassium (3.5-5.1) mmol/L Chloride (98-107) mmol/L Carbon Dioxide (21-32) mmol/L Anion Gap (3-11) BUN (6-23) mg/dl Creatinine (0.6-1.4) mg/dl Est Cr Clr Drug Dosing ml/min Est GFR ( Amer) ml/min Est GFR (Non-Af Amer) ml/min BUN/Creatinine Ratio (10-20) Glucose (70-99(Fasting)) mg/dl POC Glucose 105 H (70-99) mg/dl Calcium (8.6-10.3) mg/dl Magnesium (1.7-2.4) mg/dl Total Bilirubin (0.2-1.0) mg/dl AST (13-39) U/L ALT (7-52) U/L Alkaline Phosphatase (34-104) U/L Total Protein (6.0-8.3) gm/dl Albumin (3.4-5.0) gm/dl Globulin (2.5-4.0) gm/dl Albumin/Globulin Ratio (0.9-2) Urine Color Dark Yellow Urine Appearance Turbid A (Clear) Urine pH 5.5 (4.5-7.5) Ur Specific [place] 1.025 (1.000-1.030) Urine Protein 3+ H (Negative) Urine Glucose (UA) Negative (Negative) Urine Ketones 2+ H (Negative) Urine Blood 3+ H (Negative) Urine Nitrite Negative (Negative) Urine Bilirubin 1+ H (Negative) Urine Urobilinogen Negative (Negative) Ur Leukocyte Esterase 1+ H (Negative) Urine WBC (Auto) 21-50 H (0-5) /hpf Urine RBC (Auto) >20 H (0-2) /hpf U Hyaline Cast (Auto) >20 H (0-2) /lpf U Epithel Cells (Auto) 0-2 (0-2) /hpf Urine Bacteria (Auto) None Seen (None Seen) Granular Casts Present A (None Prsent) /lpf Urine Mucus Present A (None Prsent) Adenovirus (PCR) (NotDetected) Babesia microti DNA PCR (Not Detected) B. pertussis DNA (PCR) (NotDetected) B.parapertussis DNA PCR (NotDetected) C. pneumoniae DNA (PCR) (NotDetected) Coronavirus OC43 (PCR) (NotDetected) Coronavirus HKU1 (PCR) (NotDetected) Coronavirus 229E (PCR) (NotDetected) SARS-CoV-2 (PCR) (NotDetected) Coronavirus NL63 (PCR) (NotDetected) Human Metapneumovir PCR (NotDetected) Influenza Type A (PCR) (NotDetected) Influenza Type B (PCR) (NotDetected) M. pneumoniae (PCR) (NotDetected) Parainfluenza 1 (PCR) (NotDetected) Parainfluenza 2 (PCR) (NotDetected) Parainfluenza 3 (PCR) (NotDetected) Parainfluenza 4 (PCR) (NotDetected) RSV (PCR) (NotDetected) Entero/Rhino (PCR) (NotDetected) 05/14/24 05/14/24 05/14/24 Range/Units 11:16 09:01 08:46 WBC 7.21 (4.8-10.8) K/ul RBC 4.84 (4.70-6.10) M/uL Hgb 14.3 (14.0-18.0) g/dl Hct 44.4 (42.0-52.0) % MCV 91.7 (80.0-100.0) fL MCH 29.5 (25.0-34.0) pg MCHC 32.2 (32.0-36.0) g/dL RDW Std Deviation 48.0 H (36.4-46.3) fL RDW Coeff of Manuel 14.2 (11.5-14.5) % Plt Count 182 (130-400) K/uL MPV 10.0 (9.4-12.4) fL Immature Gran % (Auto) 0.4 % Neut % (Auto) 65.3 % Lymph % (Auto) 11.1 % [place] % (Auto) 16.6 % Eos % (Auto) 6.0 % Baso % (Auto) 0.6 % Neut # (Auto) 4.71 (1.40-6.50) K/uL Lymph # (Auto) 0.80 L (1.20-3.40) K/uL [place] # (Auto) 1.20 H (0.11-0.59) K/uL Eos # (Auto) 0.43 (0.00-0.50) K/uL Baso # (Auto) 0.04 (0.00-0.20) K/uL Immature Gran # (Auto) 0.03 (0.01-0.20) K/uL VBG pH (7.36-7.41) VBG pCO2 (38-50) mmHg VBG pO2 mmHg VBG HCO3 mmol/L VBG O2 Saturation % VBG Base Excess mEq/L Sodium 138 (136-145) mmol/L Potassium 4.6 (3.5-5.1) mmol/L Chloride 103 (98-107) mmol/L Carbon Dioxide 27 (21-32) mmol/L Anion Gap 8 (3-11) BUN 30 H (6-23) mg/dl Creatinine 1.28 (0.6-1.4) mg/dl Est Cr Clr Drug Dosing 51.9 ml/min Est GFR ( Amer) 61.3 ml/min Est GFR (Non-Af Amer) 52.9 ml/min BUN/Creatinine Ratio 23.4 H (10-20) Glucose 113 H (70-99(Fasting)) mg/dl POC Glucose 107 H (70-99) mg/dl Calcium 9.7 (8.6-10.3) mg/dl Magnesium 1.9 (1.7-2.4) mg/dl Total Bilirubin 0.8 (0.2-1.0) mg/dl AST 72 H (13-39) U/L ALT 40 (7-52) U/L Alkaline Phosphatase 53 (34-104) U/L Total Protein 7.5 (6.0-8.3) gm/dl Albumin 3.8 (3.4-5.0) gm/dl Globulin 3.7 (2.5-4.0) gm/dl Albumin/Globulin Ratio 1.0 (0.9-2) Urine Color Urine Appearance (Clear) Urine pH (4.5-7.5) Ur Specific [place] (1.000-1.030) Urine Protein (Negative) Urine Glucose (UA) (Negative) Urine Ketones (Negative) Urine Blood (Negative) Urine Nitrite (Negative) Urine Bilirubin (Negative) Urine Urobilinogen (Negative) Ur Leukocyte Esterase (Negative) Urine WBC (Auto) (0-5) /hpf Urine RBC (Auto) (0-2) /hpf U Hyaline Cast (Auto) (0-2) /lpf U Epithel Cells (Auto) (0-2) /hpf Urine Bacteria (Auto) (None Seen) Granular Casts (None Prsent) /lpf Urine Mucus (None Prsent) Adenovirus (PCR) Not Detected (NotDetected) Babesia microti DNA PCR (Not Detected) B. pertussis DNA (PCR) Not Detected (NotDetected) B.parapertussis DNA PCR Not Detected (NotDetected) C. pneumoniae DNA (PCR) Not Detected (NotDetected) Coronavirus OC43 (PCR) Not Detected (NotDetected) Coronavirus HKU1 (PCR) Not Detected (NotDetected) Coronavirus 229E (PCR) Not Detected (NotDetected) SARS-CoV-2 (PCR) Not Detected (NotDetected) Coronavirus NL63 (PCR) Not Detected (NotDetected) Human Metapneumovir PCR Not Detected (NotDetected) Influenza Type A (PCR) Not Detected (NotDetected) Influenza Type B (PCR) Not Detected (NotDetected) M. pneumoniae (PCR) Not Detected (NotDetected) Parainfluenza 1 (PCR) Not Detected (NotDetected) Parainfluenza 2 (PCR) Not Detected (NotDetected) Parainfluenza 3 (PCR) Not Detected (NotDetected) Parainfluenza 4 (PCR) Not Detected (NotDetected) RSV (PCR) Not Detected (NotDetected) Entero/Rhino (PCR) Not Detected (NotDetected) 05/13/24 05/13/24 05/13/24 Range/Units 21:02 18:44 17:38 WBC (4.8-10.8) K/ul RBC (4.70-6.10) M/uL Hgb (14.0-18.0) g/dl Hct (42.0-52.0) % MCV (80.0-100.0) fL MCH (25.0-34.0) pg MCHC (32.0-36.0) g/dL RDW Std Deviation (36.4-46.3) fL RDW Coeff of Manuel (11.5-14.5) % Plt Count (130-400) K/uL MPV (9.4-12.4) fL Immature Gran % (Auto) % Neut % (Auto) % Lymph % (Auto) % [place] % (Auto) % Eos % (Auto) % Baso % (Auto) % Neut # (Auto) (1.40-6.50) K/uL Lymph # (Auto) (1.20-3.40) K/uL [place] # (Auto) (0.11-0.59) K/uL Eos # (Auto) (0.00-0.50) K/uL Baso # (Auto) (0.00-0.20) K/uL Immature Gran # (Auto) (0.01-0.20) K/uL VBG pH 7.37 (7.36-7.41) VBG pCO2 49 (38-50) mmHg VBG pO2 46 mmHg VBG HCO3 28 mmol/L VBG O2 Saturation 79.8 % VBG Base Excess 2.2 mEq/L Sodium (136-145) mmol/L Potassium (3.5-5.1) mmol/L Chloride (98-107) mmol/L Carbon Dioxide (21-32) mmol/L Anion Gap (3-11) BUN (6-23) mg/dl Creatinine (0.6-1.4) mg/dl Est Cr Clr Drug Dosing ml/min Est GFR ( Amer) ml/min Est GFR (Non-Af Amer) ml/min BUN/Creatinine Ratio (10-20) Glucose (70-99(Fasting)) mg/dl POC Glucose 101 H 100 H (70-99) mg/dl Calcium (8.6-10.3) mg/dl Magnesium (1.7-2.4) mg/dl Total Bilirubin (0.2-1.0) mg/dl AST (13-39) U/L ALT (7-52) U/L Alkaline Phosphatase (34-104) U/L Total Protein (6.0-8.3) gm/dl Albumin (3.4-5.0) gm/dl Globulin (2.5-4.0) gm/dl Albumin/Globulin Ratio (0.9-2) Urine Color Urine Appearance (Clear) Urine pH (4.5-7.5) Ur Specific [place] (1.000-1.030) Urine Protein (Negative) Urine Glucose (UA) (Negative) Urine Ketones (Negative) Urine Blood (Negative) Urine Nitrite (Negative) Urine Bilirubin (Negative) Urine Urobilinogen (Negative) Ur Leukocyte Esterase (Negative) Urine WBC (Auto) (0-5) /hpf Urine RBC (Auto) (0-2) /hpf U Hyaline Cast (Auto) (0-2) /lpf U Epithel Cells (Auto) (0-2) /hpf Urine Bacteria (Auto) (None Seen) Granular Casts (None Prsent) /lpf Urine Mucus (None Prsent) Adenovirus (PCR) (NotDetected) Babesia microti DNA PCR (Not Detected) B. pertussis DNA (PCR) (NotDetected) B.parapertussis DNA PCR (NotDetected) C. pneumoniae DNA (PCR) (NotDetected) Coronavirus OC43 (PCR) (NotDetected) Coronavirus HKU1 (PCR) (NotDetected) Coronavirus 229E (PCR) (NotDetected) SARS-CoV-2 (PCR) (NotDetected) Coronavirus NL63 (PCR) (NotDetected) Human Metapneumovir PCR (NotDetected) Influenza Type A (PCR) (NotDetected) Influenza Type B (PCR) (NotDetected) M. pneumoniae (PCR) (NotDetected) Parainfluenza 1 (PCR) (NotDetected) Parainfluenza 2 (PCR) (NotDetected) Parainfluenza 3 (PCR) (NotDetected) Parainfluenza 4 (PCR) (NotDetected) RSV (PCR) (NotDetected) Entero/Rhino (PCR) (NotDetected) 05/11/24 Range/Units 08:42 WBC (4.8-10.8) K/ul RBC (4.70-6.10) M/uL Hgb (14.0-18.0) g/dl Hct (42.0-52.0) % MCV (80.0-100.0) fL MCH (25.0-34.0) pg MCHC (32.0-36.0) g/dL RDW Std Deviation (36.4-46.3) fL RDW Coeff of Manuel (11.5-14.5) % Plt Count (130-400) K/uL MPV (9.4-12.4) fL Immature Gran % (Auto) % Neut % (Auto) % Lymph % (Auto) % [place] % (Auto) % Eos % (Auto) % Baso % (Auto) % Neut # (Auto) (1.40-6.50) K/uL Lymph # (Auto) (1.20-3.40) K/uL [place] # (Auto) (0.11-0.59) K/uL Eos # (Auto) (0.00-0.50) K/uL Baso # (Auto) (0.00-0.20) K/uL Immature Gran # (Auto) (0.01-0.20) K/uL VBG pH (7.36-7.41) VBG pCO2 (38-50) mmHg VBG pO2 mmHg VBG HCO3 mmol/L VBG O2 Saturation % VBG Base Excess mEq/L Sodium (136-145) mmol/L Potassium (3.5-5.1) mmol/L Chloride (98-107) mmol/L Carbon Dioxide (21-32) mmol/L Anion Gap (3-11) BUN (6-23) mg/dl Creatinine (0.6-1.4) mg/dl Est Cr Clr Drug Dosing ml/min Est GFR ( Amer) ml/min Est GFR (Non-Af Amer) ml/min BUN/Creatinine Ratio (10-20) Glucose (70-99(Fasting)) mg/dl POC Glucose (70-99) mg/dl Calcium (8.6-10.3) mg/dl Magnesium (1.7-2.4) mg/dl Total Bilirubin (0.2-1.0) mg/dl AST (13-39) U/L ALT (7-52) U/L Alkaline Phosphatase (34-104) U/L Total Protein (6.0-8.3) gm/dl Albumin (3.4-5.0) gm/dl Globulin (2.5-4.0) gm/dl Albumin/Globulin Ratio (0.9-2) Urine Color Urine Appearance (Clear) Urine pH (4.5-7.5) Ur Specific [place] (1.000-1.030) Urine Protein (Negative) Urine Glucose (UA) (Negative) Urine Ketones (Negative) Urine Blood (Negative) Urine Nitrite (Negative) Urine Bilirubin (Negative) Urine Urobilinogen (Negative) Ur Leukocyte Esterase (Negative) Urine WBC (Auto) (0-5) /hpf Urine RBC (Auto) (0-2) /hpf U Hyaline Cast (Auto) (0-2) /lpf U Epithel Cells (Auto) (0-2) /hpf Urine Bacteria (Auto) (None Seen) Granular Casts (None Prsent) /lpf Urine Mucus (None Prsent) Adenovirus (PCR) (NotDetected) Babesia microti DNA PCR Not Detected (Not Detected) B. pertussis DNA (PCR) (NotDetected) B.parapertussis DNA PCR (NotDetected) C. pneumoniae DNA (PCR) (NotDetected) Coronavirus OC43 (PCR) (NotDetected) Coronavirus HKU1 (PCR) (NotDetected) Coronavirus 229E (PCR) (NotDetected) SARS-CoV-2 (PCR) (NotDetected) Coronavirus NL63 (PCR) (NotDetected) Human Metapneumovir PCR (NotDetected) Influenza Type A (PCR) (NotDetected) Influenza Type B (PCR) (NotDetected) M. pneumoniae (PCR) (NotDetected) Parainfluenza 1 (PCR) (NotDetected) Parainfluenza 2 (PCR) (NotDetected) Parainfluenza 3 (PCR) (NotDetected) Parainfluenza 4 (PCR) (NotDetected) RSV (PCR) (NotDetected) Entero/Rhino (PCR) (NotDetected) Diagnostic Findings Chest X-Ray 05/14/24 08:48 XR chest 1V portable HISTORY: Altered mental status. COMPARISON: Chest 05/12/2024. FINDINGS: No pneumothorax. No focal lung consolidations to suggest a pneumonia. Small left basilar linear densities favor subsegmental atelectasis. This is similar to the prior study. The heart remains mildly enlarged. There is a trace left pleural effusion. There is mild diffuse interstitial thickening. This has slightly progressed and likely represents mild congestive change. IMPRESSION: 1. Cardiomegaly with mild pulmonary vascular congestion. This has slightly progressed. 2. Trace left pleural effusion. ACT 112: Negative or not required by law. Electronically signed by: Kevyn Golden M.D. 05/14/2024 9:34 AM Abdomen/Pelvis CT 05/14/24 11:02 CT SCAN OF THE ABDOMEN AND PELVIS WITHOUT IV CONTRAST CLINICAL HISTORY: Change in mental status. COMPARISON STUDY: Abdominal CT dated 12/17/2023. TECHNIQUE: CT scan of the abdomen and pelvis is performed from the lung bases to the proximal femora. Images are reviewed in the axial, sagittal, and coronal pl anes. IV contrast was not administered for this examination. Note that the examination was performed in significant suboptimal fashion without oral and IV contrast. The examination is also degraded by motion artifact, as well as by streak artifact from the arms which could not be elevated above the abdomen. A dose lowering technique was utilized adhering to the principles of ALARA. CT DOSE: 1470. mGy.cm FINDINGS: Lung bases: The heart is enlarged noting trace pericardial effusion. The coronary arteries are densely calcified. There is dependent consolidation at the left lung base. Scarring/atelectasis is seen at the right lung base. A 3 mm right middle lobe pulmonary nodule image #1 is unchanged. Liver: The unenhanced liver is grossly normal in size, contour, and attenuation. There is no intrahepatic biliary ductal dilatation. Gallbladder: Unremarkable. Spleen: Normal in size and attenuation. Pancreas: The unenhanced pancreas is atrophic and grossly unremarkable. Adrenal glands: Unremarkable. Kidneys: The unenhanced kidneys there is renal cortical atrophy and are without hydronephrosis. There are at least 2 nonobstructing left renal calculi which measure up to 3 mm. No right renal calculi are identified and no ureteral stone is seen. A 2.1 cm cyst is seen on the left. Additional subcentimeter cortical hypodensities also likely represent cysts but are too small for definitive characterization. Abdominal vasculature: There is moderate to advanced atherosclerotic calcification and ectasia of the abdominal aorta. Bowel: There is mild/moderate colonic fecal retention. No bowel obstruction is seen. The appendix is well-visualized and normal. Peritoneum: There is no intraperitoneal free air or abdominal ascites. There is a large fat-containing umbilical hernia. Lymphadenopathy: A pathologically enlarged left inguinal lymph node on image #343 measures 4.5 x 2.9 cm. A prominent right inguinal node on image #361 measures 1.8 cm in length. No additional enlarged lymph nodes are identified in the abdomen or pelvis. Pelvic viscera: The bladder is decompressed around a suprapubic catheter and appears thick walled. There are nonspecific foci of intramural gas. Fatty infiltration is observed. The prostate gland is enlarged and heterogeneous. Skeletal structures: The skeletal structures are osteopenic. There is moderate to advanced lumbosacral spondylosis and mild scoliosis. Sclerotic change is seen in the sacroiliac joints. No lytic or blastic lesions are seen. IMPRESSION: 1. There is left basilar consolidation. This could represent atelectasis versus an infectious/inflammatory pneumonitis. Clinical correlation will be required. 2. The bladder is decompressed by a suprapubic catheter and appears thick-walled with surrounding infiltration. Correlate with clinical findings and urinalysis. 3. Cardiomegaly. 4. Left-sided nephrolithiasis. 5. Pathologic left inguinal lymphadenopathy is again noted. Neoplasm is the diagnosis of exclusion. Correlate with the medical/oncological history. 6. Additional findings as above. ACT 112: Negative or not required by law. Electronically signed by: Db Feliciano M.D. 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
[2024-05-14] MEDS ORDERED: THIAMINE HCL 200 MG in SODIUM CHLORIDE 0.9% 50 ML IV SCH (09:00)
--- NOTE | 2024-05-14 09:35 | XRay Report ---
XR chest 1V portable HISTORY: Altered mental status. COMPARISON: Chest 05/12/2024. FINDINGS: No pneumothorax. No focal lung consolidations to suggest a pneumonia. Small left basilar li near densities favor subsegmental atelectasis. This is similar to the prior study. The heart remains mildly enlarged. There is a trace left pleural effusion. There is mild diffuse interstitial thickenin g. This has slightly progressed and likely represents mild congestive change. IMPRESSION: 1. Cardiomegaly with mild pulmonary vascular congestion. This has slightly progressed. 2. Trace left pleural effusion. ACT 112: Negative or not required by law. Electronically signed by: Kevyn Golden M.D. 05/14/2024 9:34 AM
[2024-05-14] MEDS: SODIUM CHLORIDE 0.9% 1,000 ML IV SCH (10:04)
[2024-05-14 10:20] LABS: Adenovirus PCR Not Detected (NotDetected); Bordetella parapertussis PCR Not Detected (NotDetected); Bordetella pertussis PCR Not Detected (NotDetected); Chlamydia pneumoniae PCR Not Detected (NotDetected); Coronavirus 229E PCR Not Detected (NotDetected); Coronavirus CoV-2 (COVID19)PCR Not Detected (NotDetected); Coronavirus HKU1 PCR Not Detected (NotDetected); Coronavirus NL63 PCR Not Detected (NotDetected); Coronavirus OC43PCR Not Detected (NotDetected); Human Metapneumovirus PCR Not Detected (NotDetected); Influenza A PCR Not Detected (NotDetected); Influenza B PCR Not Detected (NotDetected); Mycoplasma pneumoniae PCR Not Detected (NotDetected); Parainfluenza Virus 1 PCR Not Detected (NotDetected); Parainfluenza Virus 2 PCR Not Detected (NotDetected); Parainfluenza Virus 3 PCR Not Detected (NotDetected); Parainfluenza Virus 4 PCR Not Detected (NotDetected); Respiratory Syncytial VirusPCR Not Detected (NotDetected); Rhinovirus/Enterovirus PCR Not Detected (NotDetected)
[2024-05-14 11:33] LABS: HCO3 VBG 28 mmol/L; Oxygen Saturation VBG 76.8 %; PCO2 VBG 47 mmHg (38-50); PO2 VBG 39 mmHg; pH VBG 7.38 (7.36-7.41)
[2024-05-14 11:42] LABS: Basophils # (auto) 0.04 K/uL (0.00-0.20); Basophils % (auto) 0.6 %; Eosinophils # (auto) 0.43 K/uL (0.00-0.50); Hematocrit (blood only) 44.4 % (42.0-52.0); Hemoglobin 14.3 g/dl (14.0-18.0); Immature Granulocytes # (auto) 0.03 K/uL (0.01-0.20); Immature Granulocytes % (auto) 0.4 %; Lymphocytes % (auto) 11.1 %; Mean Corpuscular Hemoglobin 29.5 pg (25.0-34.0); Mean Corpuscular Hgb Conc 32.2 g/dL (32.0-36.0); Mean Corpuscular Volume 91.7 fL (80.0-100.0); Monocytes % (auto) 16.6 %; Neutrophils # (auto) 4.71 K/uL (1.40-6.50); Neutrophils % (auto) 65.3 %; Platelet Count 182 K/uL (130-400); RDW Coefficient of Variation 14.2 % (11.5-14.5); Red Blood Count 4.84 M/uL (4.70-6.10); White Blood Count 7.21 K/ul (4.8-10.8)
[2024-05-14 12:00] LABS: Albumin Level 3.8 gm/dl (3.4-5.0); BUN Creatinine Ratio 23.4 (10-20); Bilirubin,Total 0.8 mg/dl (0.2-1.0); Calcium 9.7 mg/dl (8.6-10.3); Creatinine Clr Calc Pharmacy 51.9 ml/min; Est GFR (African American) 61.3 ml/min; Est GFR (Non-African American) 52.9 ml/min; Globulin 3.7 gm/dl (2.5-4.0); Magnesium 1.9 mg/dl (1.7-2.4); Potassium 4.6 mmol/L (3.5-5.1); Total Protein 7.5 gm/dl (6.0-8.3)
--- NOTE | 2024-05-14 13:05 | CT Scan Report ---
CT SCAN OF THE ABDOMEN AND PELVIS WITHOUT IV CONTRAST CLINICAL HISTORY: Change in mental status. COMPARISON STUDY: Abdominal CT dated 12/17/2023. TECHNIQUE: CT scan of the abdomen and pelvis is performed from the lung bases to the proximal femora. Images are reviewed in the axial, sagittal, and coronal planes. IV contrast was not administered for this examination. Note that the examination was performed in significant suboptimal fashion without oral and IV contrast. The examination is also degraded by motion artifact, as well as by streak artif act from the arms which could not be elevated above the abdomen. A dose lowering technique was utiliz ed adhering to the principles of ALARA. CT DOSE: 1470. mGy.cm FINDINGS: Lung bases: The heart is enlarged noting trace pericardial effusion. The coronary arteries are densel y calcified. There is dependent consolidation at the left lung base. Scarring/atelectasis is seen at the right lung base. A 3 mm right middle lobe pulmonary nodule image #1 is unchanged. Liver: The unenhanced liver is grossly normal in size, contour, and attenuation. There is no intrahep atic biliary ductal dilatation. Gallbladder: Unremarkable. Spleen: Normal in size and attenuation. Pancreas: The unenhanced pancreas is atrophic and grossly unremarkable. Adrenal glands: Unremarkable. Kidneys: The unenhanced kidneys there is renal cortical atrophy and are without hydronephrosis. There are at least 2 nonobstructing left renal calculi which measure up to 3 mm. No right renal calculi ar e identified and no ureteral stone is seen. A 2.1 cm cyst is seen on the left. Additional subcentimet er cortical hypodensities also likely represent cysts but are too small for definitive characterizati on. Abdominal vasculature: There is moderate to advanced atherosclerotic calcification and ectasia of the abdominal aorta. Bowel: There is mild/moderate colonic fecal retention. No bowel obstruction is seen. The appendix is well-visualized and normal. Peritoneum: There is no intraperitoneal free air or abdominal ascites. There is a large fat-containin g umbilical hernia. Lymphadenopathy: A pathologically enlarged left inguinal lymph node on image #343 measures 4.5 x 2.9 cm. A prominent right inguinal node on image #361 measures 1.8 cm in length. No additional enlarged l ymph nodes are identified in the abdomen or pelvis. Pelvic viscera: The bladder is decompressed around a suprapubic catheter and appears thick walled. Th ere are nonspecific foci of intramural gas. Fatty infiltration is observed. The prostate gland is enl arged and heterogeneous. Skeletal structures: The skeletal structures are osteopenic. There is moderate to advanced lumbosacra l spondylosis and mild scoliosis. Sclerotic change is seen in the sacroiliac joints. No lytic or sabine tic lesions are seen. IMPRESSION: 1. There is left basilar consolidation. This could represent atelectasis versus an infectious/inflamm atory pneumonitis. Clinical correlation will be required. 2. The bladder is decompressed by a suprapubic catheter and appears thick-walled with surrounding inf iltration. Correlate with clinical findings and urinalysis. 3. Cardiomegaly. 4. Left-sided nephrolithiasis. 5. Pathologic left inguinal lymphadenopathy is again noted. Neoplasm is the diagnosis of exclusion. C orrelate with the medical/oncological history. 6. Additional findings as above. ACT 112: Negative or not required by law. Electronically signed by: Db Feliciano M.D. 05/14/2024 1:04 PM
[2024-05-14 13:17] LABS: Babesia microti DNA Not Detected (Not Detected)
[2024-05-14 13:37] LABS: Appearance Urine Turbid (Clear); Bacteria Urine Automated None Seen (None Seen); Bilirubin Urine 1+ (Negative); Blood Urine 3+ (Negative); Cast Urine Automated >20 /lpf (0-2); Color Urine Dark Yellow; Epithelial Cell Urine Auto 0-2 /hpf (0-2); Glucose Urine UA Negative (Negative); Granular Casts Urine Present /lpf (None Prsent); Ketones Urine 2+ (Negative); Leukocyte Esterase Urine 1+ (Negative); Mucus Urine Present (None Prsent); Nitrite Urine Negative (Negative); Protein Urine 3+ (Negative); RBC Urine Automated >20 /hpf (0-2); Specific Gravity Urine 1.025 (1.000-1.030); Urobilinogen Urine Negative (Negative); WBC Urine Automated 21-50 /hpf (0-5); pH Urine 5.5 (4.5-7.5)
[2024-05-14 15:04] LABS: Hepatitis A Antibody IgM NON-REACTIVE (NON-REACTIVE); Hepatitis B Core Antibody IgM NON-REACTIVE (NON-REACTIVE)
[2024-05-14] MEDS: ceFAZolin 2000MG 2,000 MG/15 ML SYR IV SCH (23:37)
[2024-05-15 05:43] LABS: Basophils # (auto) 0.03 K/uL (0.00-0.20); Basophils % (auto) 0.4 %; Eosinophils # (auto) 0.76 K/uL (0.00-0.50); Eosinophils % (auto) 10.9 %; Hematocrit (blood only) 46.1 % (42.0-52.0); Hemoglobin 14.5 g/dl (14.0-18.0); Immature Granulocytes # (auto) 0.02 K/uL (0.01-0.20); Immature Granulocytes % (auto) 0.3 %; Lymphocytes # (auto) 1.06 K/uL (1.20-3.40); Lymphocytes % (auto) 15.1 %; Mean Corpuscular Hemoglobin 29.9 pg (25.0-34.0); Mean Corpuscular Hgb Conc 31.5 g/dL (32.0-36.0); Mean Corpuscular Volume 95.1 fL (80.0-100.0); Mean Platelet Volume 10.1 fL (9.4-12.4); Monocytes # (auto) 1.35 K/uL (0.11-0.59); Monocytes % (auto) 19.3 %; Neutrophils # (auto) 3.78 K/uL (1.40-6.50); Platelet Count 174 K/uL (130-400); RDW Coefficient of Variation 14.6 % (11.5-14.5); RDW Standard Deviation 51.5 fL (36.4-46.3); Red Blood Count 4.85 M/uL (4.70-6.10)
[2024-05-15 06:01] LABS: Albumin Level 3.8 gm/dl (3.4-5.0); BUN Creatinine Ratio 25.2 (10-20); Bilirubin,Total 0.7 mg/dl (0.2-1.0); C Reactive Protein 3.09 mg/dl (0-0.5); Calcium 9.5 mg/dl (8.6-10.3); Creatinine Clr Calc Pharmacy 52.3 ml/min; Est GFR (African American) 61.9 ml/min; Est GFR (Non-African American) 53.4 ml/min; Globulin 3.9 gm/dl (2.5-4.0); Potassium 4.4 mmol/L (3.5-5.1); Total Protein 7.7 gm/dl (6.0-8.3)
--- NOTE | 2024-05-15 08:50 | Hospitalist Progress Note ---
Date of Service May 15, 2024 Assessment & Plan (1) Confusion: Plan: Altered mental status, acute metabolic encephalopathy in patient w/ possible underlying dementia , suspected 2nd to UTI/BHUPENDRA w/ dehydration and poor PO intake as well as recent long acting opiates/constipation Sent by palliative care provider for concerns of confusion/agitation, coughing w/ suprapubic discomfort. Recently started Oxycontin 10mg Q12h and was there for follow-up. 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 Home valsartan/torsemide placed on hold for BHUPENDRA/dehydration. Patient does endorse poor PO intake recently/lack of appetite w/ chemo/taste. Continued on Oxycontin 10mg BID, prn. However, was recently started as outpatient w/ palliative care and suspect worsened since that time PLACING OXYCONTIN ON HOLD PM 05/12, continue 5mg oxycodone IR prn in meantime. Suspect making constipation and confusion WORSE Urine cx w/ GNB this morning, discontinued Vancomycin. Urine cx resulted Pantoea (Entero) agglomerans, pansensitive except resistant to ampicillin/intermediate to Nitrofurantoin DISCONTINUING CEFEPIME --> SWITCHING TO ANCEF FOR NOW. Can complete course w/ Augmentin [place]. Could have increased confusion w/ cefepime use CXR w/ emphysema w/ pulm congestion. Biofire negative. Weight 104.9kg. Not hypoxic but was given 500cc NSS and given lasix 40mg PO x 1 Unfortunately, dropped his BP overnight to 60s/40s on 05/11 Pt does report having felt lightheaded/dizzy/confused last evening. Was given albumin IV x 1 w/ improvement in BP to 103/67 BP stable this morning but slightly dry. Cr bumped to 1.51, torsemide/valsartan remaining on hold. Oral fluids encouraged Repeat CXR w/ emphysema but no further congestion and was titrated from 2L to RA, 95% this afternoon ECHO obtained, IMPROVEMENT in EF to 45%. Cardiology consulted, recs for eliquis. Patient agreeable, started Eliquis 5mg BID. Continues metoprolol, rates controlled. Remains on telemetry. TSH wnl 05/12 Ongoing metabolic encephalopathy Had some increased confusion AM 05/12 -decision for MRI brain for completeness given not prior on AC for completeness MRI brain NEGATIVE for acute CVA. M entation improved/slightly better following but does have some periods of waxing/waning Interestingly complains of ongoing constipation issues 05/12 (prior reported did have BM on 05/11 however) Asked RN to give suppository as patient insistent on moving bowels but RN reported did have LARGE BM 05/12 however did check KUB prior to suppository and noted mild-moderate fecal retention and suppository given with actual LARGE BM in the evening. Lyme testing negative. Peripheral smear not noting any inclusion bodies. No RUQ pain on exam. Ammonia NOT elevated. Hep panel pending. ?LFT elevation 2nd to drop in BP prior to admission? B12 checked/low normal - IM x 1, continues on PO supplementation Does have snoring, concerns for EILEEN, attempted overnight pulse ox however see below had agreession/agitation overnight and was not able to perform PT/OT consulted, continued eval. Patient NOT happy about continued inpatient stay but do not feel safe discharging in current state but if stable overnight can consider switching to PO and repeat therapy evals for possible home. ?psych eval for capacity, neuro for additional recs 05/13 WORSENED Agitation/aggression overnight. Suspect combination of possible underlying dementia/mild cognitive impairment (borderline B12) in setting of ongoing chemotherapy with RECENT OXYCONTIN use for pain control and worsened constipation contributing to presentation but also could have been worsened by IV abx medication use w/ cefepime empirically on admission which has been discontinued. Required Haldol 5mg IM x 1, followed by Zyprexa 7.5mg IM for ongoing aggression and pulling out his suprapubic catheter. Catheter replaced by Dr Sadler overnight x 2, restraints placed for safety/1:1 Discussed w/ supervising provider, and have made seroquel BID, IM zyprexa available as needed Removed LE restraints, utilized b/l UE soft limbs. Oxy IR 5mg x1 for pain. LARGE BM overnight reported by staff. Ancef continued for urinary coverage. Restraints then renewed w/ increased agitation and Zyprexa 5mg IM x 1 WBC wnl and no fever. Overnight pulse ox w/ DROPs, suspect underling EILEEN. 2L HS VBG WITHOUT CO2 retention Placed on IVF/IV thiamine, supervising provider to see 05/14 Required Zyprexa IM x 1 last evening for increased agitation after removal of lower extremity restraints in the morning and were renewed for 4 point. 1:1 for safety. Going to attempt again to remove lower limb restraints this morning, presently in upper soft limbs IVF continued/resumed but at lower rate. Continue Thiamine IV Home OXYCONTIN ON HOLD, IR available if needed OXYBUTYNIN placed on HOLD. CTAP obtained for further eval given prior constipation/possible missing something? CTAP impression: * There is left basilar consolidation. This could represent atelectasis versus an infectious/inflammatory pneumonitis. Clinical correlation will be required. * The bladder is decompressed by a suprapubic catheter and appears thick-walled with surrounding infiltration. Correlate with clinical findings and urinalysis. * Cardiomegaly. * Left-sided nephrolithiasis. * Pathologic left inguinal lymphadenopathy is again noted. Neoplasm is the diagnosis of exclusion. Correlate with the medical/oncological history. NO EVIDENCE FOR CIRRHOSIS DESPITE PRIOR DOCUMTED HX. NO HX ETOH US Did have additional larger BM overnight into today per nursing staff. ABdomen soft/nontender on exam Ancef continue IV for now/adjustment if needed however labs reviewed and WBC wnl, hgb stable. Electrolytes stable and renal function improved. REPEAT URINE CX given possible new infection not covered w/ recent catheter exchange Updated family at bedside. Suspect had constipation/UTI on admission and possible worsened w/ ongoing Cefepime use empirically before able to de-escalate and was continued on Oxycontin which was new in the prior week w/ palliative provider but then by the time that was decided to be placed on hold patient had agitation in afternoon/evening 05/12 and was given Haldol 5mg IM x 1, followed by Zyprexa 7.5mg IM and then required additional dose last evening and could be multifactorial. Remains on eliquis BID, MRI brain negative for CVA. Did place consult for psych to assist w/ medication management for psychosis/agitation -- Remains on seroquel 25mg PO BID per supervising provider for now. -- Zyprexa available prn but will decrease to 2.5mg IM dose. Continue tele monitoring 05/15 Patient unresponsive this morning. Respiratory rate is 32. Now requiring oxime mask at 10 L/min Chest x-ray ordered and appears to have some mild congestion. No evidence of pneumothorax or large pleural effusion. No evidence of consolidation or pneumonia Examination reveals very shallow breathing with limited air movement. Stat ABG ordered. Will place patient on BiPAP 09/07 with backup rate per protocol Labs reviewed. Vitamin B12 normal at 330. Vitamin D level normal at 70 C-reactive protein is elevated 3.09. However, procalcitonin normal at 0.19 Slight elevation in AST. ALT and total bilirubin within normal range. CT abdomen pelvis performed yesterday with no evidence of liver congestion. Monocytosis and eosinophilia- Will check peripheral smear Called and spoke with daughter Debbie and updated her (2) Afib: Plan: hx PE/DVT on coumadin. Prior CTA in march neg for PE. Had NOT been on anticoagulation, didn't want to take anymore and not trusting of new medications TSH wnl during admission EKG w/ afib, remains stable rate control on monitor Metoprolol 100mg continued ECHO obtained, improvement in EF Cards consulted, patient agreeable and started/continues on eliquis 5mg BID MRI brain negative 05/12 Continiue telemetry monitoring (3) Acute kidney injury superimposed on stage 3b chronic kidney disease: Plan: Cr 1.7 on admission w/ baseline ~1.5 Suspect 2nd to poor PO intake +/- UTI as above and ongoing diuretic use Home valsartan/torsemide on hold, did get dose of lasix PO x 1 w/ drop in BP and no further provided and encouraged PO intake/avoided IVF upfront given prior reduced EF which imprvoed on repeat ECHO Diuretics on hold, IVF due to above and renal function stable Renal dose meds/avoid nephrotoxins Renal profile in AM (4) UTI (urinary tract infection): Plan: suspected, +UA/culture as above and SWITCHED TO ANCEF IV. 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 Monae - last seen 04/28/2024 Transaminitis secondary to Keytruda? Reported hx cirrhosis in chart, ammonia checked and WNL CTAP however NOT mentioning any cirrhosis Suspect prior drop in BP and outside hospital/EMS in palliative note w/ "undetected BP" could have contributed to current presentation/shock liver? Lyme neg, Hep panel pending. CTAP noted LFTs almost completely normal today. Avoid hepatotoxin medications. LFTs in AM (6) Ischemic cardiomyopathy: Plan: Ischemic cardiomyopathy, history of CAD With echo 2022 with EF 30-35% most recently per outpatient note. Diuretic/valsartan placed on HOLD as above for BHUPENDRA on admission. Was given 500cc NSS, lasix PO x 1 but holding prior No CP reported Remains on metoprolol, aspirin. PLACING ON ELIQUIS BID ABOVE. Heparin SQ discontinued Pepcid BID for GI proph ECHO w/ improvement in EF. Cards consulted - see note Remains on telemetry (7) DM2 (diabetes mellitus, type 2): Plan: DM2 Metformin held on admission, BSG AC/HS, SSI Discontinued glargine 7u BID as only on metformin, BSGs acceptable Has been declining insulin, however BSG checks acceptable and poor PO intake (8) B12 deficiency: Plan: checked given metformin use/confusion low normal at 330, IM x 1 ordered Continues on PO supplementation Plan DVT prophylaxis: Eliquis 5mg BID continued Ongoing encephalopathy/confusion. Remains w/ restraints and attempting to remove as able. 1:1/sitter for safety as needed. Seroquel BID continued, psych consult in place. VBG without CO2 retention but do suspect has degree of underlying EILEEN. Rec outpt sleep study/2L HS in meantime. Remains on Ancef for now, but repeat UA/cx pending given cath exchange and may need to adjust abx pending results but WBC wnl/afebrile at this time. IVF/thiamine continued Therapy evals ordered, as able. Patient prior wishes to return home. Admission and Anticipated Discharge Date Admission Date: May 10, 2024 Supervising Physician Co-Signing Physician Notes The patient was not seen by me. The chart was reviewed. Case discussed with BETSY Canales. Agree with assessment and plan Review of Systems 2 Review of Systems: Unobtainable due to cognitive status Physical Exam 2 Physical Exam: GENERAL : Patient currently unresponsive. Shallow breathing. EYES: No icterus, gaze conjugate. Pupils equal and reactive to light. Patient unable to track NOSE: No evidence of epistaxis MOUTH: No lesions or candidiasis. No stigmata of bleeding. Tongue is midline. NECK: Supple. No appreciation of carotid bruits LUNGS: Shallow breathing. Patient does have some faint wheezes. Poor air movement. HEART: Irregular, irregular, rate controlled at 89 bpm. Atrial fibrillation on telemetry ABDOMEN: Soft, NT, ND, BS Present. Question of guarding with deep palpation EXTREMITIES: No LE edema, pedal pulses intact and equal bilaterally. No pitting edema of the shins NEURO: Patient unresponsive. He does retract to pain. He does move all 4 limbs spontaneously. Tongue is midline. Pupils equal round and reactive to light. Deep tendon reflexes 2 out of 4 to the patellar tendons. Results & Data Results & Data Vital Signs (Past 12 Hours) Vital Signs Temp Pulse Pulse Resp BP BP Pulse Ox 05/15/24 07:24 32 H 94 05/15/24 07:10 89 05/15/24 07:10 30 H 91 05/15/24 07:10 36.9 C 86 40 H 147/82 H 82 L 05/15/24 02:55 37 C 65 20 125/80 93 05/15/24 00:17 05/14/24 22:58 37.2 C 84 20 107/65 92 O2 Del Method O2 Flow Rate 05/15/24 07:24 Oxymask 2 05/15/24 07:10 05/15/24 07:10 Nasal Cannula 5 05/15/24 07:10 Nasal Cannula 2 05/15/24 02:55 Nasal Cannula 2 05/15/24 00:17 Nasal Cannula 2 05/14/24 22:58 Nasal Cannula 2 Laboratory Results 05/15/24 05:12 05/15/24 05:12 Differential cell count reviewed. Absolute neutrophils 3.78, lymphocytes 1.06, monocytes are elevated at 1.35, eosinophils are elevated 0.76. ESR elevated at 36. C-reactive protein elevated at 3.09. Procalcitonin level normal at 0.19 AST slightly elevated at 69. ALT and total bilirubin within normal limits. Vitamin B12 level 330 Vitamin D level normal at 70 ABGs ordered and pending Abnormal lab results 05/14/24 05/14/24 05/14/24 Range/Units 11:16 12:01 13:15 MCHC (32.0-36.0) g/dL RDW Std Deviation 48.0 H (36.4-46.3) fL RDW Coeff of Manuel (11.5-14.5) % Lymph # (Auto) 0.80 L (1.20-3.40) K/uL [place] # (Auto) 1.20 H (0.11-0.59) K/uL Eos # (Auto) (0.00-0.50) K/uL ESR (0-20) mm/hr BUN 30 H (6-23) mg/dl BUN/Creatinine Ratio 23.4 H (10-20) Glucose 113 H (70-99(Fasting)) mg/dl POC Glucose 105 H (70-99) mg/dl AST 72 H (13-39) U/L C-Reactive Protein (0-0.5) mg/dl Urine Appearance Turbid A (Clear) Urine Protein 3+ H (Negative) Urine Ketones 2+ H (Negative) Urine Blood 3+ H (Negative) Urine Bilirubin 1+ H (Negative) Ur Leukocyte Esterase 1+ H (Negative) Urine WBC (Auto) 21-50 H (0-5) /hpf Urine RBC (Auto) >20 H (0-2) /hpf U Hyaline Cast (Auto) >20 H (0-2) /lpf Granular Casts Present A (None Prsent) /lpf Urine Mucus Present A (None Prsent) 05/14/24 05/14/24 05/15/24 Range/Units 17:02 22:24 05:12 MCHC 31.5 L (32.0-36.0) g/dL RDW Std Deviation 51.5 H (36.4-46.3) fL RDW Coeff of Manuel 14.6 H (11.5-14.5) % Lymph # (Auto) 1.06 L (1.20-3.40) K/uL [place] # (Auto) 1.35 H (0.11-0.59) K/uL Eos # (Auto) 0.76 H (0.00-0.50) K/uL ESR 36 H (0-20) mm/hr BUN 32 H (6-23) mg/dl BUN/Creatinine Ratio 25.2 H (10-20) Glucose 130 H (70-99(Fasting)) mg/dl POC Glucose 102 H 103 H (70-99) mg/dl AST 69 H (13-39) U/L C-Reactive Protein 3.09 H (0-0.5) mg/dl Urine Appearance (Clear) Urine Protein (Negative) Urine Ketones (Negative) Urine Blood (Negative) Urine Bilirubin (Negative) Ur Leukocyte Esterase (Negative) Urine WBC (Auto) (0-5) /hpf Urine RBC (Auto) (0-2) /hpf U Hyaline Cast (Auto) (0-2) /lpf Granular Casts (None Prsent) /lpf Urine Mucus (None Prsent) 05/15/24 Range/Units 08:12 MCHC (32.0-36.0) g/dL RDW Std Deviation (36.4-46.3) fL RDW Coeff of Manuel (11.5-14.5) % Lymph # (Auto) (1.20-3.40) K/uL [place] # (Auto) (0.11-0.59) K/uL Eos # (Auto) (0.00-0.50) K/uL ESR (0-20) mm/hr BUN (6-23) mg/dl BUN/Creatinine Ratio (10-20) Glucose (70-99(Fasting)) mg/dl POC Glucose 136 H (70-99) mg/dl AST (13-39) U/L C-Reactive Protein (0-0.5) mg/dl Urine Appearance (Clear) Urine Protein (Negative) Urine Ketones (Negative) Urine Blood (Negative) Urine Bilirubin (Negative) Ur Leukocyte Esterase (Negative) Urine WBC (Auto) (0-5) /hpf Urine RBC (Auto) (0-2) /hpf U Hyaline Cast (Auto) (0-2) /lpf Granular Casts (None Prsent) /lpf Urine Mucus (None Prsent) Diagnostic Findings Chest X-Ray 05/14/24 08:48 XR chest 1V portable HISTORY: Altered mental status. COMPARISON: Chest 05/12/2024. FINDINGS: No pneumothorax. No focal lung consolidations to suggest a pneumonia. Small left basilar linear densities favor subsegmental atelectasis. This is similar to the prior study. The heart remains mildly enlarged. There is a trace left pleural effusion. There is mild diffuse interstitial thickening. This has slightly progressed and likely represents mild congestive change. IMPRESSION: 1. Cardiomegaly with mild pulmonary vascular congestion. This has slightly progressed. 2. Trace left pleural effusion. ACT 112: Negative or not required by law. Electronically signed by: Kevyn Golden M.D. 05/14/2024 9:34 AM L Abdomen/Pelvis CT 05/14/24 11:02 CT SCAN OF THE ABDOMEN AND PELVIS WITHOUT IV CONTRAST CLINICAL HISTORY: Change in mental status. COMPARISON STUDY: Abdominal CT dated 12/17/2023. TECHNIQUE: CT scan of the abdomen and pelvis is performed from the lung bases to the proximal femora. Images are reviewed in the axial, sagittal, and coronal planes. IV contrast was not administered for this examination. Note that the examination was performed in significant suboptimal fashion without oral and IV contrast. The examination is also degraded by motion artifact, as well as by streak artifact from the arms which could not be elevated above the abdomen. A dose lowering technique was utilized adhering to the principles of ALARA. CT DOSE: 1470. mGy.cm FINDINGS: Lung bases: The heart is enlarged noting trace pericardial effusion. The coronary arteries are densely calcified. There is dependent consolidation at the left lung base. Scarring/atelectasis is seen at the right lung base. A 3 mm right middle lobe pulmonary nodule image #1 is unchanged. Liver: The unenhanced liver is grossly normal in size, contour, and attenuation. There is no intrahepatic biliary ductal dilatation. Gallbladder: Unremarkable. Spleen: Normal in size and attenuation. Pancreas: The unenhanced pancreas is atrophic and grossly unremarkable. Adrenal glands: Unremarkable. Kidneys: The unenhanced kidneys there is renal cortical atrophy and are without hydronephrosis. There are at least 2 nonobstructing left renal calculi which measure up to 3 mm. No right renal calculi are identified and no ureteral stone is seen. A 2.1 cm cyst is seen on the left. Additional subcentimeter cortical hypodensities also likely represent cysts but are too small for definitive characterization. Abdominal vasculature: There is moderate to advanced atherosclerotic calcification and ectasia of the abdominal aorta. Bowel: There is mild/moderate colonic fecal retention. No bowel obstruction is seen. The appendix is well-visualized and normal. Peritoneum: There is no intraperitoneal free air or abdominal ascites. There is a large fat-containing umbilical hernia. Lymphadenopathy: A pathologically enlarged left inguinal lymph node on image #343 measures 4.5 x 2.9 cm. A prominent right inguinal node on image #361 measures 1.8 cm in length. No additional enlarged lymph nodes are identified in the abdomen or pelvis. Pelvic viscera: The bladder is decompressed around a suprapubic catheter and appears thick walled. There are nonspecific foci of intramural gas. Fatty infiltration is observed. The prostate gland is enlarged and heterogeneous. Skeletal structures: The skeletal structures are osteopenic. There is moderate to advanced lumbosacral spondylosis and mild scoliosis. Sclerotic change is seen in the sacroiliac joints. No lytic or blastic lesions are seen. IMPRESSION: 1. There is left basilar consolidation. This could represent atelectasis versus an infectious/inflammatory pneumonitis. Clinical correlation will be required. 2. The bladder is decompressed by a suprapubic catheter and appears thick-walled with surrounding infiltration. Correlate with clinical findings and urinalysis. 3. Cardiomegaly. 4. Left-sided nephrolithiasis. 5. Pathologic left inguinal lymphadenopathy is again noted. Neoplasm is the diagnosis of exclusion. Correlate with the medical/oncological history. 6. Additional findings as above. ACT 112: Negative or not required by law. Electronically signed by: Db Feliciano M.D. 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
[2024-05-15 08:59] LABS: Base Excess ABG -3.3 mEq/L (-9-1.8); HCO3 ABG 28 mmol/L (19-24); Oxygen Saturation ABG 99.2 % (90-95); PCO2 ABG 87 mmHg (35-46); PO2 ABG 115 mmHg (80-95)
[2024-05-15 09:04] LABS: Allen Test Pos (Pos)
--- NOTE | 2024-05-15 09:06 | XRay Report ---
SINGLE VIEW CHEST CLINICAL HISTORY: Hypoxia. FINDINGS: An AP, portable, upright chest radiograph is compared to study dated 05/14/2024 and correlat ed with chest CT dated 03/23/2024. The heart is enlarged. There is pulmonary vascular congestion. Emphy sema and chronic interstitial thickening is similar to previous. Scarring/atelectasis is noted at the lung bases. No large pleural effusion or pneumothorax is seen. The skeletal structures are osteopeni c. The bony thorax is grossly intact. IMPRESSION: Cardiomegaly and emphysema with pulmonary vascular congestion. ACT 112: Negative or not required by law. Electronically signed by: Db Feliciano M.D. 05/15/2024 9:05 AM
[2024-05-15 09:13] LABS: pH ABG 7.12 (7.35-7.45)
--- NOTE | 2024-05-15 13:00 | Psychiatric Consultation ---
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 concern for UTI and acute kidney injury with a creatinine of 1.7 on admission. currently on oxycodone IR for pain. Recent concern for CO2 narcosis placed on BiPAP. Patient has been intermittently agitated and psychiatry consulted for agitation medication recommendations. Recent labs reviewed and CBC and BMP within expected limits. Elevated inflammatory markers with ESR 36 and CRP of 3.09. Liver function tests with AST of 69 and stable. Patient has not been requiring IM agitation medications recently however continues to be disoriented. Overall, I spent a total of 35 minutes with this case including review of chart records, nursing report, review of lab work, direct evaluation of the patient at bedside, counseling the patient, discussion of the patient with the hospitalist provider, discussion with the psychiatric liaison during clinical rounds, and documentation in the electronic health record. 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 concern for UTI and acute kidney injury with a creatinine of 1.7 on admission. currently on oxycodone IR for pain. Recent concern for CO2 narcosis placed on BiPAP. Patient has been intermittently agitated and psychiatry consulted for agitation medication recommendations. Chief Complaint AMS History of Present Illness Chart review: Patient received IM Zyprexa 5 mg on 05/13/2024. On quetiapine 25 mg twice daily. No IM PRNs for agitation overnight. patient slept 6 to 8 hours last night with 1 disturbance. On exam patient was being placed for BiPAP and appeared sedated. Unable to engage in interview. Allergies Allergy/AdvReac Type Severity Reaction Status Date / Time carvedilol [From Coreg] Allergy Unknown pt not sure Verified 03/26/24 07:05 ezetimibe [From Zetia] Allergy Unknown muscle Verified 03/26/24 07:05 aches fluvastatin Allergy Unknown muscle Verified 03/26/24 07:05 aches gemfibrozil Allergy Unknown muscle Verified 03/26/24 07:05 aches pravastatin Allergy Unknown muscle Verified 03/26/24 07:05 aches simvastatin Allergy Unknown muscle Verified 03/26/24 07:05 aches sulfamethoxazole Allergy Unknown pt not sure Verified 03/26/24 07:05 [From Bactrim] trimethoprim [From Bactrim] Allergy Unknown pt not sure Verified 03/26/24 07:05 Home Medications Medication Instructions Recorded Confirmed Type metoprolol succinate 100 mg 100 mg PO QAM 01/12/24 05/10/24 History tablet,extended release 24 hr polyethylene glycol 3350 17 17 g PO QAM 01/12/24 05/10/24 History gram/dose oral powder tamsulosin 0.4 mg capsule 0.4 mg PO BID 01/12/24 05/10/24 History torsemide 10 mg tablet 10 mg PO DAILY PRN Weight Gain 01/12/24 05/10/24 History tramadol 50 mg tablet 50 mg PO UD PRN Pain 01/12/24 05/10/24 History valsartan 160 mg tablet 80 mg PO BID 01/12/24 05/10/24 History ascorbic acid (vitamin C) 1,000 mg 1 g PO QAM 01/14/24 05/10/24 History tablet (Vitamin C) aspirin 81 mg tablet,delayed 81 mg PO QAM 01/14/24 05/10/24 History release cholecalciferol (vitamin D3) 50 50 mcg PO QAM 01/14/24 05/10/24 History mcg (2,000 unit) capsule (Vitamin D3) metformin 500 mg tablet 500 mg PO BID 01/14/24 05/10/24 History mineral oil-hydrophil petrolat 1 applic topical UD PRN catheter 01/14/24 05/10/24 History topical ointment area oxybutynin chloride 5 mg 5 mg PO DAILY #30 tabs 03/29/24 05/10/24 Rx tablet,extended release 24 hr lidocaine 5 % topical ointment 1 applic topical TID PRN pain #30 04/02/24 05/10/24 Rx grams oxycodone 10 mg tablet,crush 10 mg PO Q12H cancer pain 1 month 04/29/24 05/10/24 Rx resistant,extended release 12 hr #60 tabs (OxyContin) oxycodone 5 mg tablet 5 mg PO .Q4-6H PRN Pain 05/10/24 05/10/24 History Patient History Medical History History of pulmonary embolism Hx MRSA infection (12/2023) foot ulcers, treated w/ Vanco at [facility] Hx of sepsis (01/18/24) admitted at [facility] w/ sepsis from foot ulcers Hx of diabetic foot ulcer (12/2023) right and left big toe; in process of healing, seeing [facility] Cirrhosis 12/17/2023 Diabetes mellitus NIDDM History of COVID-19 (~2021) Neuropathy Hospice care patient for past 2 yrs. Kidney disease unknown details Ulloa catheter in place History of UTI multiple Penile cancer dx 2021 Sleep apnea suspected/sleep study yrs ago/oxygen recommended pt declined. Shortness of breath mostly at night. Poor historian Coronary artery disease 1998: LAD 70, LCX OK, RCA 90, failed balloon angioplasty; NSTEMI 2017, patient declined cath; per [facility] records History of MO (myocardial infarction) 4 or 5/last one a few yrs ago. Surgical History History of eyelid surgery History of urologic surgery multiple on penis. most recent in office procedure december 2023. History of cardiac cath hx x 1 attempted/unsuccessful. sx was recommended "told never would live through it" Social History Smoking Status: Former smoker Second Hand Exposure: No; Do You Dip or Chew Tobacco: No; Hx Alcohol Use: No Hx Substance Use: No Preferred Language: Niuean Communication Ability: Effective Gold Nib Grinder Required: No Beliefs That Will Affect Care: None Current Living Situation: Alone Feels Safe at Home: Yes Assistive Devices: Cane Physical Exam Mental Examination: unable to complete d/t lack of patient engagement Appearance: Unkempt Eye Contact: No Eye Contact Vital Signs (Past 24 Hours): Last Vital Signs Temp 36.9 C 08/24/24 07:10 Pulse 87 05/15/24 09:04 Resp 21 05/15/24 09:04 BP 147/82 H 05/15/24 07:10 Pulse Ox 97 05/15/24 09:04 O2 Del Method BiPAP 05/15/24 09:06 O2 Flow Rate 2 05/15/24 07:24 FiO2 40 05/15/24 09:04 Results & Data (PSY) Medications Administered Apixaban (Apixaban 5 Mg Tablet) 5 mg PO BID BERENICE Stop: 06/11/24 08:59 Last Admin: 05/15/24 08:03 Dose: 5 mg Documented By: Admin: 05/14/24 22:21 Dose: 5 mg Documented By: Akin Admin: 05/14/24 08:15 Dose: 5 mg Documented By: Admin: 05/13/24 20:49 Dose: 5 mg Documented By: Admin: 05/13/24 08:51 Dose: 5 mg Documented By: Admin: 05/12/24 21:50 Dose: Not Given Documented By: Admin: 05/12/24 10:59 Dose: 5 mg Documented By: HARIS Ascorbic Acid (Ascorbic Acid 500 Mg Tab) 1,000 mg PO QAM BERENICE Stop: 06/10/24 08:59 Last Admin: 05/15/24 08:03 Dose: 1,000 mg Documented By: Admin: 05/14/24 08:15 Dose: 1,000 mg Documented By: Admin: 05/13/24 08:51 Dose: 1,000 mg Documented By: Admin: 05/12/24 10:59 Dose: 1,000 mg Documented By: Admin: 05/11/24 09:47 Dose: 1,000 mg Documented By: LAURIE Aspirin (Aspirin 81 Mg Ectab) 81 mg PO QAM [facility] Stop: 06/10/24 08:59 Last Admin: 05/15/24 08:05 Dose: 81 mg Documented By: Admin: 05/14/24 08:15 Dose: 81 mg Documented By: Admin: 05/13/24 08:52 Dose: 81 mg Documented By: Admin: 05/12/24 11:00 Dose: 81 mg Documented By: Admin: 05/11/24 09:47 Dose: 81 mg Documented By: LAURIE Cyanocobalamin (Cyanocobalamin (B-12) 500 Mcg Tablet) 1,000 mcg PO QAM B[facility]ENICE Stop: 06/12/24 08:59 Last Admin: 05/15/24 08:04 Dose: 1,000 mcg Documented By: Admin: 05/14/24 08:15 Dose: 1,000 mcg Documented By: Admin: 05/13/24 08:51 Dose: 1,000 mcg Documented By: MADHU Famotidine (Pepcid 20mg Iv Push) 20 mg in 5 mls @ 2.5 mls/min IV Q12H [facility] Stop: 06/11/24 18:59 Last Admin: 05/15/24 06:14 Dose: 2.5 mls/min Documented By: Akin Admin: 05/14/24 18:20 Dose: 2.5 mls/min Documented By: Admin: 05/14/24 06:47 Dose: 2.5 mls/min Documented By: Admin: 05/13/24 17:07 Dose: 2.5 mls/min Documented By: Admin: 05/13/24 06:52 Dose: Not Given Documented By: Admin: 05/12/24 18:04 Dose: 2.5 mls/min Documented By: HARIS Thiamine HCl 200 mg/ Sodium (Chloride) 52 mls @ 210 mls/hr IV TID BERENICE Stop: 06/12/24 20:59 Last Infusion: 05/15/24 08:39 Dose: Infused Documented By: Admin: 05/15/24 08:10 Dose: 210 mls/hr Documented By: Infusion: 05/14/24 23:29 Dose: Infused Documented By: [id number] Admin: 05/14/24 22:21 Dose: 210 mls/hr Documented By: [id number] Infusion: 05/14/24 13:26 Dose: Infused Documented By: Admin: 05/14/24 13:11 Dose: 210 mls/hr Documented By: Infusion: 05/14/24 08:28 Dose: Infused Documented By: Admin: 05/14/24 08:13 Dose: 210 mls/hr Documented By: Infusion: 05/13/24 21:08 Dose: Infused Documented By: Admin: 05/13/24 20:53 Dose: 210 mls/hr Documented By: ANTONETTE Sodium Chloride (Nss) 1,000 mls @ 60 mls/hr IV .[id number] [facility] Stop: 05/15/24 10:44 Last Admin: 05/15/24 02:54 Dose: 60 mls/hr Documented By: Akin Infusion: 05/15/24 02:45 Dose: Infused Documented By: [id number] Admin: 05/14/24 10:04 Dose: 60 mls/hr Documented By: MADHU Cefazolin Sodium (Ancef 2000mg) 2,000 mg in 15 mls @ 3.75 mls/min IV Q8H [facility] Stop: 05/24/24 21:59 Last Admin: 05/15/24 06:15 Dose: 3.75 mls/min Documented By: [id number] Admin: 05/14/24 23:37 Dose: 3.75 mls/min Documented By: Akin Insulin Aspart (Insulin Aspart Per Unit Charge) 0 units SC [facility] B[facility]ENICE Stop: 06/09/24 16:29 Last Admin: 05/15/24 08:28 Dose: Not Given Documented By: JIMMY Co-signed By: EVELYNE Admin: 05/14/24 23:29 Dose: Not Given Documented By: [id number] Co-signed By: SHANE Admin: 05/14/24 17:05 Dose: Not Given Documented By: Admin: 05/14/24 12:04 Dose: Not Given Documented By: [email or web address] Admin: 05/14/24 08:58 Dose: Not Given Documented By: Admin: 05/13/24 21:27 Dose: Not Given Documented By: ANTONETTE Co-signed By: CARLOS A Admin: 05/13/24 17:43 Dose: Not Given Documented By: Admin: 05/13/24 12:48 Dose: Not Given Documented By: Admin: 05/13/24 08:46 Dose: Not Given Documented By: Admin: 05/12/24 21:50 Dose: Not Given Documented By: ANTONETTE Co-signed By: LAURIE(2) Admin: 05/12/24 18:04 Dose: Not Given Documented By: Admin: 05/12/24 15:47 Dose: Not Given Documented By: Admin: 05/12/24 09:00 Dose: Not Given Documented By: Admin: 05/11/24 20:09 Dose: Not Given Documented By: Admin: 05/11/24 17:22 Dose: Not Given Documented By: Admin: 05/11/24 12:28 Dose: Not Given Documented By: Admin: 05/11/24 09:00 Dose: Not Given Documented By: Admin: 05/10/24 20:56 Dose: Not Given Documented By: Admin: 05/10/24 19:02 Dose: Not Given Documented By: RRR Lidocaine (Lidocaine 5% Oint 30 Gm Tube) 1 appln TOP TID PRN PRN Reason: pain Stop: 06/09/24 18:44 Last Admin: 05/10/24 21:10 Dose: 1 appln Documented By: HERMILA Metoprolol Succinate (Metoprolol Succ 50mg Ext Rel Tab) 100 mg PO QAM [facility] Stop: 06/10/24 08:59 Last Admin: 05/15/24 08:05 Dose: 100 mg Documented By: Admin: 05/14/24 08:14 Dose: 100 mg Documented By: Admin: 05/13/24 08:51 Dose: 100 mg Documented By: Admin: 05/12/24 15:47 Dose: Not Given Documented By: Admin: 05/11/24 09:48 Dose: 100 mg Documented By: LAURIE Ondansetron HCl (Ondansetron Inj 2 Mg/Ml 2 Ml Vial) 4 mg IV Q6H PRN PRN Reason: Nausea And Vomiting Stop: 06/10/24 14:11 Last Admin: 05/11/24 14:23 Dose: 4 mg Documented By: LAURIE Oxybutynin Chloride (Oxybutynin Chloride Xl 5 Mg Tabcr) 5 mg PO DAILY [facility] Stop: 06/10/24 08:59 Last Admin: 05/13/24 08:51 Dose: 5 mg Documented By: Admin: 05/12/24 11:01 Dose: 5 mg Documented By: Admin: 05/11/24 09:48 Dose: 5 mg Documented By: LAURIE Oxycodone HCl (Oxycodone Hcl Ir 5 Mg Tab (Immediate Release)) 5 mg PO Q6H PRN PRN Reason: Pain Stop: 05/24/24 18:44 Last Admin: 05/13/24 15:18 Dose: 5 mg Documented By: MADHU Oxycodone HCl (Oxycodone Hcl 10 Mg Tabcr (Oxycontin)) 10 mg PO Q12H [facility] Stop: 05/24/24 20:59 Last Admin: 05/12/24 11:04 Dose: 10 mg Documented By: Admin: 05/11/24 20:13 Dose: Not Given Documented By: Admin: 05/11/24 09:46 Dose: 10 mg Documented By: Admin: 05/10/24 21:06 Dose: 10 mg Documented By: HERMILA Polyethylene Glycol (Polyethylene (Miralax) 17 Gm Pack) 17 gm PO QAM [facility] Stop: 06/10/24 08:59 Last Admin: 05/15/24 08:03 Dose: 17 gm Documented By: Admin: 05/14/24 08:15 Dose: 17 gm Documented By: Admin: 05/13/24 08:46 Dose: Not Given Documented By: Admin: 05/12/24 11:01 Dose: Not Given Documented By: Admin: 05/11/24 09:48 Dose: 17 gm Documented By: LAURIE Quetiapine Fumarate (Quetiapine Fumarate 25 Mg Tablet) 25 mg PO BID [facility] Stop: 06/12/24 08:59 Last Admin: 05/15/24 08:02 Dose: 25 mg Documented By: Admin: 05/14/24 22:21 Dose: 25 mg Documented By: [id number] Admin: 05/14/24 08:15 Dose: 25 mg Documented By: Admin: 05/13/24 20:48 Dose: 25 mg Documented By: Admin: 05/13/24 08:55 Dose: 25 mg Documented By: MADHU Sodium Chloride (Sodium Chloride 0.65% Na Soln 45 Ml (Vance)) 2 sprays NA Q4 PRN PRN Reason: Dryness Stop: 06/09/24 23:18 Last Admin: 05/11/24 06:20 Dose: 2 sprays Documented By: ALEN Tamsulosin HCl (Tamsulosin Hcl 0.4 Mg Cap) 0.4 mg PO BID [facility]ICE Stop: 06/09/24 20:59 Last Admin: 05/15/24 08:02 Dose: 0.4 mg Documented By: Admin: 05/14/24 22:21 Dose: 0.4 mg Documented By: [id number] Admin: 05/14/24 08:15 Dose: 0.4 mg Documented By: Admin: 05/13/24 20:49 Dose: 0.4 mg Documented By: Admin: 05/13/24 08:51 Dose: 0.4 mg Documented By: Admin: 05/12/24 21:50 Dose: Not Given Documented By: Admin: 05/12/24 11:00 Dose: 0.4 mg Documented By: Admin: 05/11/24 22:02 Dose: Not Given Documented By: [email or web address] Admin: 05/11/24 09:48 Dose: 0.4 mg Documented By: Admin: 05/10/24 20:57 Dose: 0.4 mg Documented By: HERMILA Vitamin D (Cholecalciferol 25 Mcg (1000 Units) Tab) [facility] [place] Stop: 06/10/24 08:59 Last Admin: 05/14/24 08:15 Dose: 50 mcg Documented By: Admin: 05/13/24 08:51 Dose: 50 mcg Documented By: Admin: 05/12/24 11:00 Dose: 50 mcg Documented By: Admin: 05/11/24 09:47 Dose: 50 mcg Documented By: LAURIE Coding [place] [address] IN/OBS CONSULT LVL 2,35M Patient Type Established History Problem Focused Exam Problem Focused Medical Decision Making Low Complexity Diagnoses Delirium due to multiple etiologies, persistent, hyperactive F05 Cancer related pain G89.3 UTI (urinary tract infection) N39.0 Acute kidney injury superimposed on stage 3b chronic kidney disease N17.9; N18.32
[2024-05-15] MEDS: ACETAMINOPHEN 1000 MG/100 ML IV IV ONE (15:41)
[2024-05-15 16:28] LABS: Base Excess ABG 0.3 mEq/L (-9-1.8); HCO3 ABG 27 mmol/L (19-24); Oxygen Saturation ABG 99.3 % (90-95); PCO2 ABG 48 mmHg (35-46); PO2 ABG 141 mmHg (80-95); pH ABG 7.35 (7.35-7.45)
[2024-05-15 16:36] LABS: Allen Test Pos (Pos)
--- NOTE | 2024-05-15 17:07 | XRay Report ---
SINGLE VIEW CHEST CLINICAL HISTORY: Hypoxia. FINDINGS: An AP, portable, upright chest radiograph is compared to study performed earlier the same d ay 05/15/2024 [address] with chest CT dated 03/23/2024. The heart is enlarged. Pulmonary vascular c ongestion is improved. Emphysema and chronic interstitial thickening is similar to previous. Scarring /atelectasis is noted at the lung bases. No large pleural effusion or pneumothorax is seen. The skele yobany structures are osteopenic. The bony thorax is grossly intact. IMPRESSION: Cardiomegaly and emphysema. Pulmonary vascular congestion has improved from today's earli er examination. ACT 112: Negative or not required by law. Electronically signed by: Db Feliciano M.D. 05/15/2024 5:06 PM
[2024-05-16 04:36] LABS: Basophils # (auto) 0.04 K/uL (0.00-0.20); Basophils % (auto) 0.6 %; Eosinophils # (auto) 0.51 K/uL (0.00-0.50); Eosinophils % (auto) 7.8 %; Hematocrit (blood only) 44.9 % (42.0-52.0); Hemoglobin 13.9 g/dl (14.0-18.0); Immature Granulocytes # (auto) 0.02 K/uL (0.01-0.20); Immature Granulocytes % (auto) 0.3 %; Lymphocytes # (auto) 0.87 K/uL (1.20-3.40); Lymphocytes % (auto) 13.3 %; Mean Corpuscular Hemoglobin 29.9 pg (25.0-34.0); Mean Corpuscular Volume 96.6 fL (80.0-100.0); Mean Platelet Volume 10.1 fL (9.4-12.4); Monocytes # (auto) 1.25 K/uL (0.11-0.59); Monocytes % (auto) 19.1 %; Neutrophils # (auto) 3.86 K/uL (1.40-6.50); Neutrophils % (auto) 58.9 %; Platelet Count 157 K/uL (130-400); RDW Coefficient of Variation 14.8 % (11.5-14.5); RDW Standard Deviation 52.9 fL (36.4-46.3); Red Blood Count 4.65 M/uL (4.70-6.10); White Blood Count 6.55 K/ul (4.8-10.8)
[2024-05-16 04:55] LABS: Albumin Level 3.6 gm/dl (3.4-5.0); Bilirubin,Total 0.6 mg/dl (0.2-1.0); Calcium 9.5 mg/dl (8.6-10.3); Creatinine Clr Calc Pharmacy 45.8 ml/min; Est GFR (African American) 52.7 ml/min; Est GFR (Non-African American) 45.5 ml/min; Globulin 3.5 gm/dl (2.5-4.0); Potassium 4.1 mmol/L (3.5-5.1); Total Protein 7.1 gm/dl (6.0-8.3)
[2024-05-16 06:06] LABS: Base Excess ABG 0.6 mEq/L (-9-1.8); HCO3 ABG 27 mmol/L (19-24); Oxygen Saturation ABG 99.4 % (90-95); PCO2 ABG 47 mmHg (35-46); PO2 ABG 107 mmHg (80-95); pH ABG 7.36 (7.35-7.45)
[2024-05-16 06:07] LABS: Allen Test Pos (Pos)
[2024-05-16] MEDS: LACTATED RINGER'S 1,000 ML IV SCH (07:50)
--- NOTE | 2024-05-16 13:49 | Hospitalist Progress Note ---
Date of Service May 16, 2024 Assessment & Plan (1) Confusion: Plan: Altered mental status, acute metabolic encephalopathy in patient w/ possible underlying dementia , suspected 2nd to UTI/BHUPENDRA w/ dehydration and poor PO intake as well as recent long acting opiates/constipation Sent by palliative care provider for concerns of confusion/agitation, coughing w/ suprapubic discomfort. Recently started Oxycontin 10mg Q12h and was there for follow-up. 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 Home valsartan/torsemide placed on hold for BHUPENDRA/dehydration. Patient does endorse poor PO intake recently/lack of appetite w/ chemo/taste. Continued on Oxycontin 10mg BID, prn. However, was recently started as outpatient w/ palliative care and suspect worsened since that time PLACING OXYCONTIN ON HOLD PM 05/12, continue 5mg oxycodone IR prn in meantime. Suspect making constipation and confusion WORSE Urine cx w/ GNB this morning, discontinued Vancomycin. Urine cx resulted Pantoea (Entero) agglomerans, pansensitive except resistant to ampicillin/intermediate to Nitrofurantoin DISCONTINUING CEFEPIME --> SWITCHING TO ANCEF FOR NOW. Can complete course w/ Augmentin at [facility]. Could have increased confusion w/ cefepime use CXR w/ emphysema w/ pulm congestion. Biofire negative. Weight 104.9kg. Not hypoxic but was given 500cc NSS and given lasix 40mg PO x 1 Unfortunately, dropped his BP overnight to 60s/40s on 05/11 Pt does report having felt lightheaded/dizzy/confused last evening. Was given albumin IV x 1 w/ improvement in BP to 103/67 BP stable this morning but slightly dry. Cr bumped to 1.51, torsemide/valsartan remaining on hold. Oral fluids encouraged Repeat CXR w/ emphysema but no further congestion and was titrated from 2L to RA, 95% this afternoon ECHO obtained, IMPROVEMENT in EF to 45%. Cardiology consulted, recs for eliquis. Patient agreeable, started Eliquis 5mg BID. Continues metoprolol, rates controlled. Remains on telemetry. TSH wnl 05/12 Ongoing metabolic encephalopathy Had some increased confusion AM 05/12 -decision for MRI brain for completeness given not prior on AC for completeness MRI brain NEGATIVE for acute CVA. M entation improved/slightly better following but does have some periods of waxing/waning Interestingly complains of ongoing constipation issues 05/12 (prior reported did have BM on 05/11 however) Asked RN to give suppository as patient insistent on moving bowels but RN reported did have LARGE BM 05/12 however did check KUB prior to suppository and noted mild-moderate fecal retention and suppository given with actual LARGE BM in the evening. Lyme testing negative. Peripheral smear not noting any inclusion bodies. No RUQ pain on exam. Ammonia NOT elevated. Hep panel pending. ?LFT elevation 2nd to drop in BP prior to admission? B12 checked/low normal - IM x 1, continues on PO supplementation Does have snoring, concerns for EILEEN, attempted overnight pulse ox however see below had agreession/agitation overnight and was not able to perform PT/OT consulted, continued eval. Patient NOT happy about continued inpatient stay but do not feel safe discharging in current state but if stable overnight can consider switching to PO and repeat therapy evals for possible home. ?psych eval for capacity, neuro for additional recs 05/13 WORSENED Agitation/aggression overnight. Suspect combination of possible underlying dementia/mild cognitive impairment (borderline B12) in setting of ongoing chemotherapy with RECENT OXYCONTIN use for pain control and worsened constipation contributing to presentation but also could have been worsened by IV abx medication use w/ cefepime empirically on admission which has been discontinued. Required Haldol 5mg IM x 1, followed by Zyprexa 7.5mg IM for ongoing aggression and pulling out his suprapubic catheter. Catheter replaced by Dr Sadler overnight x 2, restraints placed for safety/1:1 Discussed w/ supervising provider, and have made seroquel BID, IM zyprexa available as needed Removed LE restraints, utilized b/l UE soft limbs. Oxy IR 5mg x1 for pain. LARGE BM overnight reported by staff. Ancef continued for urinary coverage. Restraints then renewed w/ increased agitation and Zyprexa 5mg IM x 1 WBC wnl and no fever. Overnight pulse ox w/ DROPs, suspect underling EILEEN. 2L HS VBG WITHOUT CO2 retention Placed on IVF/IV thiamine, supervising provider to see 05/14 Required Zyprexa IM x 1 last evening for increased agitation after removal of lower extremity restraints in the morning and were renewed for 4 point. 1:1 for safety. Going to attempt again to remove lower limb restraints this morning, presently in upper soft limbs IVF continued/resumed but at lower rate. Continue Thiamine IV Home OXYCONTIN ON HOLD, IR available if needed OXYBUTYNIN placed on HOLD. CTAP obtained for further eval given prior constipation/possible missing something? CTAP impression: * There is left basilar consolidation. This could represent atelectasis versus an infectious/inflammatory pneumonitis. Clinical correlation will be required. * The bladder is decompressed by a suprapubic catheter and appears thick-walled with surrounding infiltration. Correlate with clinical findings and urinalysis. * Cardiomegaly. * Left-sided nephrolithiasis. * Pathologic left inguinal lymphadenopathy is again noted. Neoplasm is the diagnosis of exclusion. Correlate with the medical/oncological history. NO EVIDENCE FOR CIRRHOSIS DESPITE PRIOR DOCUMTED HX. NO HX ETOH US Did have additional larger BM overnight into today per nursing staff. ABdomen soft/nontender on exam Ancef continue IV for now/adjustment if needed however labs reviewed and WBC wnl, hgb stable. Electrolytes stable and renal function improved. REPEAT URINE CX given possible new infection not covered w/ recent catheter exchange Updated family at bedside. Suspect had constipation/UTI on admission and possible worsened w/ ongoing Cefepime use empirically before able to de-escalate and was continued on Oxycontin which was new in the prior week w/ palliative provider but then by the time that was decided to be placed on hold patient had agitation in afternoon/evening 05/12 and was given Haldol 5mg IM x 1, followed by Zyprexa 7.5mg IM and then required additional dose last evening and could be multifactorial. Remains on eliquis BID, MRI brain negative for CVA. Did place consult for psych to assist w/ medication management for psychosis/agitation -- Remains on seroquel 25mg PO BID per supervising provider for now. -- Zyprexa available prn but will decrease to 2.5mg IM dose. Continue tele monitoring 05/15 Patient unresponsive this morning. Respiratory rate is 32. Now requiring oxime mask at 10 L/min Chest x-ray ordered and appears to have some mild congestion. No evidence of pneumothorax or large pleural effusion. No evidence of consolidation or pneumonia Examination reveals very shallow breathing with limited air movement. Stat ABG ordered. Will place patient on BiPAP 09/07 with backup rate per protocol Labs reviewed. Vitamin B12 normal at 330. Vitamin D level normal at 70 C-reactive protein is elevated 3.09. However, procalcitonin normal at 0.19 Slight elevation in AST. ALT and total bilirubin within normal range. CT abdomen pelvis performed yesterday with no evidence of liver congestion. Monocytosis and eosinophilia- Will check peripheral smear Called and spoke with daughter Debbie and updated her 05/16 Patient improved throughout the morning. Currently off of BiPAP. ABG has normalized. Patient eating without difficulty. Alert and oriented x 3. Seroquel and olanzapine only as needed -judicious use only Continue BiPAP while sleeping (2) Afib: Plan: hx PE/DVT on coumadin. Prior CTA in march neg for PE. Had NOT been on anticoagulation, didn't want to take anymore and not trusting of new medications TSH wnl during admission EKG w/ afib, remains stable rate control on monitor Metoprolol 100mg continued ECHO obtained, improvement in EF Cards consulted, patient agreeable and started/continues on eliquis 5mg BID MRI brain negative 05/12 Continiue telemetry monitoring (3) Acute kidney injury superimposed on stage 3b chronic kidney disease: Plan: Cr 1.7 on admission w/ baseline ~1.5 Suspect 2nd to poor PO intake +/- UTI as above and ongoing diuretic use Bump in creatinine to 1.45 and BUN to 42 on 820 02/09/2024 AM. LR at 100 mL/h started. If patient continues with good oral intake, cut IV fluids back to 50 mL an hour overnight and consider discontinuation in the morning based on labs Home valsartan/torsemide on hold, did get dose of lasix PO x 1 w/ drop in BP and no further provided and encouraged PO intake/avoided IVF upfront given prior reduced EF which imprvoed on repeat ECHO Diuretics on hold, IVF due to above and renal function stable Although BNP has been elevated, patient is clinically dry on examination. Daily weights standing if possible Renal dose meds/avoid nephrotoxins Renal profile in AM (4) UTI (urinary tract infection): Plan: suspected, +UA/culture as above and SWITCHED TO ANCEF IV. 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 Monae - last seen 04/28/2024 Transaminitis secondary to Keytruda? Reported hx cirrhosis in chart, ammonia checked and WNL CTAP however NOT mentioning any cirrhosis Suspect prior drop in BP and outside hospital/EMS in palliative note w/ "undetected BP" could have contributed to current presentation/shock liver? Lyme neg, Hep panel pending. CTAP noted LFTs almost completely normal today. Avoid hepatotoxin medications. LFTs in AM (6) Ischemic cardiomyopathy: Plan: Ischemic cardiomyopathy, history of CAD With echo 2022 with EF 30-35% most recently per outpatient note. Diuretic/valsartan placed on HOLD as above for BHUPENDRA on admission. Was given 500cc NSS, lasix PO x 1 but holding prior No CP reported Remains on metoprolol, aspirin. PLACING ON ELIQUIS BID ABOVE. Heparin SQ discontinued Pepcid BID for GI proph ECHO w/ improvement in EF. Cards consulted - see note Remains on telemetry (7) DM2 (diabetes mellitus, type 2): Plan: DM2 Metformin held on admission, BSG AC/HS, SSI Discontinued glargine 7u BID as only on metformin, BSGs acceptable Has been declining insulin, however BSG checks acceptable and poor PO intake. Random glucose this morning was 81 mg/Renetta (8) B12 deficiency: Plan: checked given metformin use/confusion low normal at 330, IM x 1 ordered Continues on PO supplementation Plan DVT prophylaxis: Eliquis 5mg BID continued Ongoing encephalopathy/confusion. Remains w/ restraints and attempting to remove as able. 1:1/sitter for safety as needed. Seroquel BID continued, psych consult in place. VBG without CO2 retention but do suspect has degree of underlying EILEEN. Rec outpt sleep study/2L HS in meantime. Remains on Ancef for now, but repeat UA/cx pending given cath exchange. WBC wnl/afebrile at this time. IVF/thiamine continued Consider stopping antibiotics tomorrow Therapy evals ordered, as able. Patient prior wishes to return home. Admission and Anticipated Discharge Date Admission Date: May 10, 2024 Supervising Physician Co-Signing Physician Notes The patient was not seen by me. The chart was reviewed. Case discussed with BETSY Canales. Agree with assessment and plan Subjective Attending: Dr. Marcus Patient is significantly improved today. ABGs have normalized. Bump in BUN and creatinine. LR at 100 mL/h started At lunchtime, patient was out of bed to chair and eating. Alert and oriented x 3 Discussed with daughter Debbie. Continue psychoactive drugs as needed only. Avoid benzodiazepines Patient agrees to continue with BiPAP at night No fever or chills. No abdominal pain. No nausea or vomiting. No headache. Nose is sore from BiPAP mask. No other acute issues. Review of Systems 2 Review of Systems: A total of 10 systems was reviewed and is negative other than as listed in the HPI Physical Exam 2 Physical Exam: GENERAL : No acute distress EYES: No icterus, gaze conjugate NOSE: No evidence of epistaxis MOUTH: No lesions or candidiasis NECK: Supple LUNGS: CTA B/L, no wheezes, rales or rhonchi HEART: Regular, rate controlled ABDOMEN: Soft, NT, ND, BS Present EXTREMITIES: No LE edema, pedal pulses intact NEURO: A&OX3 Results & Data Results & Data Vital Signs (Past 12 Hours) Vital Signs Temp Pulse Pulse Resp BP Pulse Ox O2 Del Method 05/16/24 12:42 89 20 112/62 93 Room Air 05/16/24 11:09 36.6 C 05/16/24 11:04 36.4 C L 90 24 103/65 94 Room Air 05/16/24 08:11 83 05/16/24 07:25 74 19 99 05/16/24 07:05 BiPAP 05/16/24 06:49 36.7 C 81 21 130/84 98 BiPAP 05/16/24 02:23 81 18 98 05/16/24 02:20 37 C 80 20 116/74 98 BiPAP FiO2 05/16/24 12:42 05/16/24 11:09 05/16/24 11:04 05/16/24 08:11 05/16/24 07:25 30 05/16/24 07:05 05/16/24 06:49 05/16/24 02:23 30 05/16/24 02:20 Laboratory Results 05/16/24 04:02 05/16/24 04:02 05/13/24 05/14/24 05/15/24 18:44 11:19 08:47 ABG pH 7.12 L* ABG pCO2 87 H ABG pO2 115 H ABG HCO3 28 H ABG O2 Saturation 99.2 H ABG Base Excess -3.3 VBG pH 7.37 7.38 VBG pCO2 49 47 VBG pO2 46 39 VBG HCO3 28 28 VBG O2 Saturation 79.8 76.8 VBG Base Excess 2.2 2.0 05/15/24 05/16/24 16:05 05:56 ABG pH 7.35 7.36 ABG pCO2 48 H 47 H ABG pO2 141 H 107 H ABG HCO3 27 H 27 H ABG O2 Saturation 99.3 H 99.4 H ABG Base Excess 0.3 0.6 VBG pH VBG pCO2 VBG pO2 VBG HCO3 VBG O2 Saturation VBG Base Excess Diagnostic Findings Chest X-Ray 05/15/24 17:00 SINGLE VIEW CHEST CLINICAL HISTORY: Hypoxia. FINDINGS: An AP, portable, upright chest radiograph is compared to study performed earlier the same day 05/15/2024 and correlated with chest CT dated 03/23/2024. The heart is enlarged. Pulmonary vascular congestion is improved. Emphysema and chronic interstitial thickening is similar to previous. Scarring/atelectasis is noted at the lung bases. No large pleural effusion or pneumothorax is seen. The skeletal structures are osteopenic. The bony thorax is grossly intact. IMPRESSION: Cardiomegaly and emphysema. Pulmonary vascular congestion has improved from today's earlier examination. ACT 112: Negative or not required by law. Electronically signed by: Db Feliciano M.D. 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
--- NOTE | 2024-05-16 17:28 | XRay Report ---
XR chest 1V portable HISTORY: Hypoxia COMPARISON: Chest 05/15/2024 FINDINGS: No pneumothorax. Trace left pleural effusion and left basilar linear densities persist. Oth erwise, the lungs are clear. The heart is mildly enlarged. Mild pulmonary vascular congestion is agai n noted. No acute fractures. IMPRESSION: 1. Cardiomegaly and mild congestive change again noted. 2. Trace left pleural effusion and left basilar densities persist. ACT 112: Negative or not required by law. Electronically signed by: Kevyn Golden M.D. 05/16/2024 5:26 PM
[2024-05-17 06:15] LABS: Basophils # (auto) 0.03 K/uL (0.00-0.20); Basophils % (auto) 0.5 %; Eosinophils # (auto) 0.92 K/uL (0.00-0.50); Eosinophils % (auto) 14.5 %; Hemoglobin 13.3 g/dl (14.0-18.0); Immature Granulocytes # (auto) 0.04 K/uL (0.01-0.20); Immature Granulocytes % (auto) 0.6 %; Lymphocytes # (auto) 0.96 K/uL (1.20-3.40); Lymphocytes % (auto) 15.1 %; Mean Corpuscular Hemoglobin 29.5 pg (25.0-34.0); Mean Corpuscular Hgb Conc 31.7 g/dL (32.0-36.0); Mean Corpuscular Volume 93.1 fL (80.0-100.0); Mean Platelet Volume 10.1 fL (9.4-12.4); Monocytes # (auto) 1.14 K/uL (0.11-0.59); Neutrophils # (auto) 3.26 K/uL (1.40-6.50); Neutrophils % (auto) 51.3 %; Platelet Count 156 K/uL (130-400); RDW Coefficient of Variation 14.4 % (11.5-14.5); RDW Standard Deviation 49.6 fL (36.4-46.3); Red Blood Count 4.51 M/uL (4.70-6.10); White Blood Count 6.35 K/ul (4.8-10.8)
[2024-05-17 06:24] LABS: Albumin Level 3.3 gm/dl (3.4-5.0); BUN Creatinine Ratio 30.6 (10-20); Bilirubin,Total 0.7 mg/dl (0.2-1.0); Calcium 9.4 mg/dl (8.6-10.3); Creatinine Clr Calc Pharmacy 54.9 ml/min; Est GFR (African American) 65.6 ml/min; Est GFR (Non-African American) 56.6 ml/min; Globulin 3.2 gm/dl (2.5-4.0); Potassium 3.9 mmol/L (3.5-5.1); Total Protein 6.5 gm/dl (6.0-8.3)
--- NOTE | 2024-05-17 08:32 | Hospitalist Progress Note ---
Date of Service May 17, 2024 Assessment & Plan (1) Confusion: Plan: Altered mental status, acute metabolic encephalopathy in patient w/ possible underlying dementia , suspected 2nd to UTI/BHUPENDRA w/ dehydration and poor PO intake as well as recent long acting opiates/constipation Sent by palliative care provider for concerns of confusion/agitation, coughing w/ suprapubic discomfort. Recently started Oxycontin 10mg Q12h and was there for follow-up. 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 Home valsartan/torsemide placed on hold for BHUPENDRA/dehydration. Patient does endorse poor PO intake recently/lack of appetite w/ chemo/taste. Continued on Oxycontin 10mg BID, prn. However, was recently started as outpatient w/ palliative care and suspect worsened since that time PLACING OXYCONTIN ON HOLD PM 05/12, continue 5mg oxycodone IR prn in meantime. Suspect making constipation and confusion WORSE Urine cx w/ GNB this morning, discontinued Vancomycin. Urine cx resulted Pantoea (Entero) agglomerans, pansensitive except resistant to ampicillin/intermediate to Nitrofurantoin DISCONTINUING CEFEPIME --> SWITCHING TO ANCEF FOR NOW. Can complete course w/ Augmentin at me. Could have increased confusion w/ cefepime use CXR w/ emphysema w/ pulm congestion. Biofire negative. Weight 104.9kg. Not hypoxic but was given 500cc NSS and given lasix 40mg PO x 1 Unfortunately, dropped his BP overnight to 60s/40s on 05/11 Pt does report having felt lightheaded/dizzy/confused last evening. Was given albumin IV x 1 w/ improvement in BP to 103/67 BP stable this morning but slightly dry. Cr bumped to 1.51, torsemide/valsartan remaining on hold. Oral fluids encouraged Repeat CXR w/ emphysema but no further congestion and was titrated from 2L to RA, 95% this afternoon ECHO obtained, IMPROVEMENT in EF to 45%. Cardiology consulted, recs for eliquis. Patient agreeable, started Eliquis 5mg BID. Continues metoprolol, rates controlled. Remains on telemetry. TSH wnl 05/12 Ongoing metabolic encephalopathy Had some increased confusion AM 05/12 -decision for MRI brain for completeness given not prior on AC for completeness MRI brain NEGATIVE for acute CVA. Mentation improved/slightly better following but does have some periods of waxing/waning Interestingly complains of ongoing constipation issues 05/12 (prior reported did have BM on 05/11 however) Asked RN to give suppository as patient insistent on moving bowels but RN reported did have LARGE BM 05/12 however did check KUB prior to suppository and noted mild-moderate fecal retention and suppository given with actual LARGE BM in the evening. Lyme testing negative. Peripheral smear not noting any inclusion bodies. No RUQ pain on exam. Ammonia NOT elevated. Hep panel pending. ?LFT elevation 2nd to drop in BP prior to admission? B12 checked/low normal - IM x 1, continues on PO supplementation Does have snoring, concerns for EILEEN, attempted overnight pulse ox however see below had agreession/agitation overnight and was not able to perform PT/OT consulted, continued eval. Patient NOT happy about continued inpatient stay but do not feel safe discharging in current state but if stable overnight can consider switching to PO and repeat therapy evals for possible home. ?psych eval for capacity, neuro for additional recs 05/13 WORSENED Agitation/aggression overnight. Suspect combination of possible underlying dementia/mild cognitive impairment (borderline B12) in setting of ongoing chemotherapy with RECENT OXYCONTIN use for pain control and worsened constipation contributing to presentation but also could have been worsened by IV abx medication use w/ cefepime empirically on admission which has been discontinued. Required Haldol 5mg IM x 1, followed by Zyprexa 7.5mg IM for ongoing aggression and pulling out his suprapubic catheter. Catheter replaced by Dr Sadler overnight x 2, restraints placed for safety/1:1 Discussed w/ supervising provider, and have made seroquel BID, IM zyprexa available as needed Removed LE restraints, utilized b/l UE soft limbs. Oxy IR 5mg x1 for pain. LARGE BM overnight reported by staff. Ancef continued for urinary coverage. Restraints then renewed w/ increased agitation and Zyprexa 5mg IM x 1 WBC wnl and no fever. Overnight pulse ox w/ DROPs, suspect underling EILEEN. 2L HS VBG WITHOUT CO2 retention Placed on IVF/IV thiamine, supervising provider to see 05/14 Required Zyprexa IM x 1 last evening for increased agitation after removal of lower extremity restraints in the morning and were renewed for 4 point. 1:1 for safety. Going to attempt again to remove lower limb restraints this morning, presently in upper soft limbs IVF continued/resumed but at lower rate. Continue Thiamine IV Home OXYCONTIN ON HOLD, IR available if needed OXYBUTYNIN placed on HOLD. CTAP obtained for further eval given prior constipation/possible missing something? * There is left basilar consolidation. This could represent atelectasis versus an infectious/inflammatory pneumonitis. Clinical correlation will be required. * The bladder is decompressed by a suprapubic catheter and appears thick-walled with surrounding infiltration. Correlate with clinical findings and urinalysis. * Cardiomegaly. * Left-sided nephrolithiasis. * Pathologic left inguinal lymphadenopathy is again noted. Neoplasm is the diagnosis of exclusion. Correlate with the medical/oncological history. NO EVIDENCE FOR CIRRHOSIS DESPITE PRIOR DOCUMTED HX. NO HX ETOH US Did have additional larger BM overnight into today per nursing staff. ABdomen soft/nontender on exam Ancef continue IV for now/adjustment if needed however labs reviewed and WBC wnl, hgb stable. Electrolytes stable and renal function improved. REPEAT URINE CX given possible new infection not covered w/ recent catheter exchange Updated family at bedside. Suspect had constipation/UTI on admission and possible worsened/ ongoing Cefepime use empirically before able to de-escalate and was continued on OxyContin which was new in the prior week w/ palliative provider but then by the time that was decided to be placed on hold patient had agitation in afternoon/evening 05/12 and was given Haldol 5mg IM x 1, followed by Zyprexa 7.5mg IM and then required additional dose last evening and could be multifactorial. Remains on eliquis BID, MRI brain negative for CVA. Did place consult for psych to assist w/ medication management for psychosis/agitation -- Remains on seroquel 25mg PO BID per supervising provider for now. -- Zyprexa available prn but will decrease to 2.5mg IM dose. Continue tele monitoring 05/15 Patient unresponsive this morning. Respiratory rate is 32. Now requiring oxime mask at 10 L/min Chest x-ray ordered and appears to have some mild congestion. No evidence of p neumothorax or large pleural effusion. No evidence of consolidation or pneumonia Examination reveals very shallow breathing with limited air movement. Stat ABG ordered. Will place patient on BiPAP 09/07 with backup rate per protocol, CO2 narcosis Labs reviewed. Vitamin B12 normal at 330. Vitamin D level normal at 70 C-reactive protein is elevated 3.09. However, procalcitonin normal at 0.19 Slight elevation in AST. ALT and total bilirubin within normal range. CT abdomen pelvis performed yesterday with no evidence of liver congestion. Monocytosis and eosinophilia- Will check peripheral smear Called and spoke with jean Lewis and updated her 05/16 Patient improved throughout the morning. Currently off of BiPAP. ABG has normalized. Patient eating without difficulty. Alert and oriented x 3. Seroquel and olanzapine only as needed -judicious use only Continue BiPAP while sleeping 05/17 Ancef IV continues. Repeat urine cx negative. Plan to transition to Augmentin in AM to complete course BiPAP when sleeping Given LR @ 100cc/hr for dehydration, diuretics on hold. Can stop IVF if PO intake reliable, will place stop for this afternoon/monitor. Home diuretics on hold for now. Seroquel 25mg PO BID prn, olanzapine 2.5mg IM available if needed (has not needed) Has not required Oxycodone available prn but oxycontin remains on hold. +BM x 2 again overnight. Voicemail for jean Lewis left this morning per ok by patient. He reports she will be visiting with him this afternoon Asked PT/OT to eval again for today (2) Afib: Plan: hx PE/DVT on coumadin. Prior CTA in march neg for PE. Had NOT been on anticoagulation, didn't want to take anymore and not trusting of new medications TSH wnl during admission EKG w/ afib, remains stable rate control on monitor Metoprolol 100mg continued ECHO obtained, improvement in EF Cards consulted, patient agreeable and started/continues on eliquis 5mg BID MRI brain negative 05/12 Continiue telemetry monitoring (3) Acute kidney injury superimposed on stage 3b chronic kidney disease: Plan: Cr 1.7 on admission w/ baseline ~1.5 Suspect 2nd to poor PO intake +/- UTI as above and ongoing diuretic use Bump in creatinine to 1.45 and BUN to 42 on 820 02/09/2024 AM. LR at 100 mL/h started. If patient continues with good oral intake, cut IV fluids back to 50 mL an hour overnight and consider discontinuation in the morning based on labs Home valsartan/torsemide on hold, did get dose of lasix PO x 1 w/ drop in BP and no further provided and encouraged PO intake/avoided IVF upfront given prior reduced EF which imprvoed on repeat ECHO Diuretics on hold, IVF due to above and renal function stable Although BNP has been elevated, patient is clinically dry on examination. Daily weights standing if possible IVF for today, renal function improved. DC IVF this afternoon Renal dose meds/avoid nephrotoxins Renal profile in AM (4) UTI (urinary tract infection): Plan: suspected, +UA/culture as above and SWITCHED TO ANCEF IV. 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 Monae - last seen 04/28/2024 Transaminitis secondary to Keytruda? Reported hx cirrhosis in chart, ammonia checked and WNL CTAP however NOT mentioning any cirrhosis Suspect prior drop in BP and outside hospital/EMS in palliative note w/ "undetected BP" could have contributed to current presentation/shock liver? Lyme neg, Hep panel pending. CTAP noted LFTs almost completely normal today. Avoid hepatotoxin medications. LFTs in AM (6) Ischemic cardiomyopathy: Plan: Ischemic cardiomyopathy, history of CAD With echo 2022 with EF 30-35% most recently per outpatient note. Diuretic/valsartan placed on HOLD as above for BHUPENDRA on admission. Was given 500cc NSS, lasix PO x 1 but holding prior No CP reported Remains on metoprolol, aspirin. PLACING ON ELIQUIS BID ABOVE -- continue at dc Heparin SQ discontinued Pepcid BID for GI proph ECHO w/ improvement in EF. Cards consulted - see note Remains on telemetry (7) DM2 (diabetes mellitus, type 2): Plan: DM2 Metformin held on admission, BSG AC/HS, SSI Discontinued glargine 7u BID as only on metformin, BSGs acceptable Has been declining insulin, however BSG checks acceptable and poor PO intake. Random glucose this morning was 96 mg/Renetta (8) B12 deficiency: Plan: checked given metformin use/confusion low normal at 330, IM x 1 ordered Continues on PO supplementation Plan DVT prophylaxis: Eliquis 5mg BID continued 1:1 for safety, restraints removed. Ancef for IV abx, BiPAP /O2 when sleeping as able. Needs outpt sleep study. Didn't tolerate the BiPAP mask much last night but remains stable. Monitor for repeat needs but instructed to at least use 2L when sleeping during the day Repeat therapy evals -- patient wishes to return home. Call/voicemail for daughter Debbie this morning. Admission and Anticipated Discharge Date Admission Date: May 10, 2024 Subjective Evaluated this morning, sitting up in bed. 1:1 for safety. Has some irritation to catheter, RN to apply some lidocaine. BM yesterday, ok appetite but picking. Doesn't really like the mask, discussed at least O2 2L when sleeping and will monitor. PT/OT to come around to see again today. Patient reports his daughter will be in this afternoon, ok to call with update. Call to Annette medina/ update. Continued inpatient stay for now. Physical Exam Physical Exam: GENERAL : No acute distress, laying in bed, sleepy/1:1 at bedside EYES: No icterus, gaze conjugate NOSE: No evidence of epistaxis, does have some bruising from BiPAP mask to bridge of nose MOUTH: No lesions or candidiasis NECK: Supple LUNGS: CTA B/L, no wheezes, rales or rhonchi, on room air HEART: irregularly irregular, rates controlled, no significant pitting edema ABDOMEN: Soft, NT, ND, BS Present suprapubic catheter in place, some irritation at insertion site but no drainage EXTREMITIES: No LE edema, pedal pulses intact NEURO: A&OX3, sleepy but cooperative does not remember events of last week Results & Data Results & Data Vital Signs (Past 12 Hours) Vital Signs Temp Pulse Pulse Resp BP Pulse Ox O2 Del Method 05/17/24 08:06 75 05/17/24 06:57 36.8 C 107 H 16 134/77 93 Room Air 05/17/24 02:10 37.1 C 75 18 102/61 93 Room Air 05/16/24 23:08 84 05/16/24 22:09 36.7 C 78 18 134/74 98 BiPAP 05/16/24 20:32 84 23 98 FiO2 05/17/24 08:06 05/17/24 06:57 05/17/24 02:10 05/16/24 23:08 05/16/24 22:09 05/16/24 20:32 30 Laboratory Results 05/17/24 05/17/24 05/16/24 Range/Units 08:01 05:39 19:50 WBC 6.35 (4.8-10.8) K/ul RBC 4.51 L (4.70-6.10) M/uL Hgb 13.3 L (14.0-18.0) g/dl Hct 42.0 (42.0-52.0) % MCV 93.1 (80.0-100.0) fL MCH 29.5 (25.0-34.0) pg MCHC 31.7 L (32.0-36.0) g/dL RDW Std Deviation 49.6 H (36.4-46.3) fL RDW Coeff of Manuel 14.4 (11.5-14.5) % Plt Count 156 (130-400) K/uL MPV 10.1 (9.4-12.4) fL Immature Gran % (Auto) 0.6 % Neut % (Auto) 51.3 % Lymph % (Auto) 15.1 % Garden % (Auto) 18.0 % Eos % (Auto) 14.5 % Baso % (Auto) 0.5 % Neut # (Auto) 3.26 (1.40-6.50) K/uL Lymph # (Auto) 0.96 L (1.20-3.40) K/uL Garden # (Auto) 1.14 H (0.11-0.59) K/uL Eos # (Auto) 0.92 H (0.00-0.50) K/uL Baso # (Auto) 0.03 (0.00-0.20) K/uL Immature Gran # (Auto) 0.04 (0.01-0.20) K/uL Sodium 141 (136-145) mmol/L Potassium 3.9 (3.5-5.1) mmol/L Chloride 106 (98-107) mmol/L Carbon Dioxide 31 (21-32) mmol/L Anion Gap 4 (3-11) BUN 37 H (6-23) mg/dl Creatinine 1.21 (0.6-1.4) mg/dl Est Cr Clr Drug Dosing 54.9 ml/min Est GFR ( Amer) 65.6 ml/min Est GFR (Non-Af Amer) 56.6 ml/min BUN/Creatinine Ratio 30.6 H (10-20) Glucose 96 (70-99(Fasting)) mg/dl POC Glucose 94 98 (70-99) mg/dl Calcium 9.4 (8.6-10.3) mg/dl Total Bilirubin 0.7 (0.2-1.0) mg/dl AST 52 H (13-39) U/L ALT 13 (7-52) U/L Alkaline Phosphatase 46 (34-104) U/L Total Protein 6.5 (6.0-8.3) gm/dl Albumin 3.3 L (3.4-5.0) gm/dl Globulin 3.2 (2.5-4.0) gm/dl Albumin/Globulin Ratio 1.0 (0.9-2) 05/16/24 05/16/24 Range/Units 17:10 12:17 WBC (4.8-10.8) K/ul RBC (4.70-6.10) M/uL Hgb (14.0-18.0) g/dl Hct (42.0-52.0) % MCV (80.0-100.0) fL MCH (25.0-34.0) pg MCHC (32.0-36.0) g/dL RDW Std Deviation (36.4-46.3) fL RDW Coeff of Manuel (11.5-14.5) % Plt Count (130-400) K/uL MPV (9.4-12.4) fL Immature Gran % (Auto) % Neut % (Auto) % Lymph % (Auto) % Garden % (Auto) % Eos % (Auto) % Baso % (Auto) % Neut # (Auto) (1.40-6.50) K/uL Lymph # (Auto) (1.20-3.40) K/uL Garden # (Auto) (0.11-0.59) K/uL Eos # (Auto) (0.00-0.50) K/uL Baso # (Auto) (0.00-0.20) K/uL Immature Gran # (Auto) (0.01-0.20) K/uL Sodium (136-145) mmol/L Potassium (3.5-5.1) mmol/L Chloride (98-107) mmol/L Carbon Dioxide (21-32) mmol/L Anion Gap (3-11) BUN (6-23) mg/dl Creatinine (0.6-1.4) mg/dl Est Cr Clr Drug Dosing ml/min Est GFR ( Amer) ml/min Est GFR (Non-Af Amer) ml/min BUN/Creatinine Ratio (10-20) Glucose (70-99(Fasting)) mg/dl POC Glucose 97 118 H (70-99) mg/dl Calcium (8.6-10.3) mg/dl Total Bilirubin (0.2-1.0) mg/dl AST (13-39) U/L ALT (7-52) U/L Alkaline Phosphatase (34-104) U/L Total Protein (6.0-8.3) gm/dl Albumin (3.4-5.0) gm/dl Globulin (2.5-4.0) gm/dl Albumin/Globulin Ratio (0.9-2) PG Care Time/CCT Total # of Minutes Spent Total Time Spent with Patient: Total time spent is greater than 50% in coordination of care (as documented) at patient's floor/unit and/or counseling patient: Coding Level of Care Code 89373 SUB INP/OBS CARE 3/50MIN Diagnoses Confusion R41.0 Afib I48.91 Acute kidney injury superimposed on stage 3b chronic kidney disease N17.9; N18.32 UTI (urinary tract infection) N39.0 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
--- NOTE | 2024-05-17 08:56 | Oncology Consultation ---
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 Based on this, indication that encephalopathy is related to immunotherapy. AMS likely multifactorial due to pain medications, UTI and hypercapnia -Outpatient oncology follow up on discharge to discuss restarting treatment Thank you for this consult. Please feel free to call if you have any questions History of Present Illness Reason for Consultation: encephalopathy, ?2nd to Keytruda vs pain meds Attending Physician: Alivia Pires MD History of Present Illness 79 year old gentleman with metastatic penile carcinoma s/p 2 cycles of keytruda admitted for AMS, BHUPENDRA and UTI. Oncology consulted to see if encephalopathy is due to Keytruda. Patient seen today, received BIPAP last night. Appears much better clinically and A&O x 3 . Sitter and nurse confirmed that he seems more alert and less agitated today Allergies Allergy/AdvReac Type Severity Reaction Status Date / Time carvedilol [From Coreg] Allergy Unknown pt not sure Verified 03/26/24 07:05 ezetimibe [From Zetia] Allergy Unknown muscle Verified 03/26/24 07:05 aches fluvastatin Allergy Unknown muscle Verified 03/26/24 07:05 aches gemfibrozil Allergy Unknown muscle Verified 03/26/24 07:05 aches pravastatin Allergy Unknown muscle Verified 03/26/24 07:05 aches simvastatin Allergy Unknown muscle Verified 03/26/24 07:05 aches sulfamethoxazole Allergy Unknown pt not sure Verified 03/26/24 07:05 [From Bactrim] trimethoprim [From Bactrim] Allergy Unknown pt not sure Verified 03/26/24 07:05 Home Medications Medication Instructions Recorded Confirmed Type metoprolol succinate 100 mg 100 mg PO QAM 01/12/24 05/10/24 History tablet,extended release 24 hr polyethylene glycol 3350 17 17 g PO QAM 01/12/24 05/10/24 History gram/dose oral powder tamsulosin 0.4 mg capsule 0.4 mg PO BID 01/12/24 05/10/24 History torsemide 10 mg tablet 10 mg PO DAILY PRN Weight Gain 01/12/24 05/10/24 History tramadol 50 mg tablet 50 mg PO UD PRN Pain 01/12/24 05/10/24 History valsartan 160 mg tablet 80 mg PO BID 01/12/24 05/10/24 History ascorbic acid (vitamin C) 1,000 mg 1 g PO QAM 01/14/24 05/10/24 History tablet (Vitamin C) aspirin 81 mg tablet,delayed 81 mg PO QAM 01/14/24 05/10/24 History release cholecalciferol (vitamin D3) 50 50 mcg PO QAM 01/14/24 05/10/24 History mcg (2,000 unit) capsule (Vitamin D3) metformin 500 mg tablet 500 mg PO BID 01/14/24 05/10/24 History mineral oil-hydrophil petrolat 1 applic topical UD PRN catheter 01/14/24 05/10/24 History topical ointment area oxybutynin chloride 5 mg 5 mg PO DAILY #30 tabs 03/29/24 05/10/24 Rx tablet,extended release 24 hr lidocaine 5 % topical ointment 1 applic topical TID PRN pain #30 04/02/24 05/10/24 Rx grams oxycodone 10 mg tablet,crush 10 mg PO Q12H cancer pain 1 month 04/29/24 05/10/24 Rx resistant,extended release 12 hr #60 tabs (OxyContin) oxycodone 5 mg tablet 5 mg PO .Q4-6H PRN Pain 05/10/24 05/10/24 History Patient History Medical History History of pulmonary embolism Hx MRSA infection (12/2023) foot ulcers, treated w/ Vanco at [facility] Hx of sepsis (01/18/24) admitted at [facility] w/ sepsis from foot ulcers Hx of diabetic foot ulcer (12/2023) right and left big toe; in process of healing, seeing [facility] Cirrhosis 12/17/2023 Diabetes mellitus NIDDM History of COVID-19 (~2021) Neuropathy Hospice care patient for past 2 yrs. Kidney disease unknown details [place] catheter in place History of UTI multiple Penile cancer dx 2021 Sleep apnea suspected/sleep study yrs ago/oxygen recommended pt declined. Shortness of breath mostly at night. Poor historian Coronary artery disease 1997: LAD 70, LCX [place], RCA 90, failed balloon angioplasty; NSTEMI 2017, patient declined cath; per [facility] records History of SC (myocardial infarction) 4 or 5/last one a few yrs ago. Surgical History History of eyelid surgery History of urologic surgery multiple on penis. most recent in office procedure december 2023. History of cardiac cath hx x 1 attempted/unsuccessful. sx was recommended "told never would live through it" Social History Smoking Status: Former smoker Second Hand Exposure: No; Do You Dip or Chew Tobacco: No; Hx Alcohol Use: No Hx Substance Use: No Preferred Language: Danish Communication Ability: Effective Dye Lab Technician Required: No Beliefs That Will Affect Care: None Current Living Situation: Alone Feels Safe at Home: Yes Assistive Devices: Cane Results & Data Vital Signs (Past 12 Hours) Vital Signs Temp Pulse Pulse Resp BP Pulse Ox O2 Del Method 05/17/24 08:06 75 05/17/24 06:57 36.8 C 107 H 16 134/77 93 Room Air 05/17/24 02:10 37.1 C 75 18 102/61 93 Room Air 05/16/24 23:08 84 05/16/24 22:09 36.7 C 78 18 134/74 98 BiPAP
[2024-05-17] MEDS: QUEtiapine FUMARATE 25 MG TABLET PO PRN (16:18)
[2024-05-17] MEDS: ACETAMINOPHEN 1,000 MG/100 ML VIAL IV PRN (20:20)
[2024-05-17] MEDS: THIAMINE HCL 100 MG TAB PO SCH (20:21)
[2024-05-18 06:51] LABS: Base Excess ABG 3.7 mEq/L (-9-1.8); HCO3 ABG 30 mmol/L (19-24); Oxygen Saturation ABG 94.9 % (90-95); PCO2 ABG 49 mmHg (35-46); PO2 ABG 65 mmHg (80-95); pH ABG 7.39 (7.35-7.45)
[2024-05-18 06:52] LABS: Allen Test Pos (Pos)
[2024-05-18 06:58] LABS: Basophils # (auto) 0.04 K/uL (0.00-0.20); Basophils % (auto) 0.7 %; Eosinophils # (auto) 0.91 K/uL (0.00-0.50); Eosinophils % (auto) 16.3 %; Hematocrit (blood only) 43.5 % (42.0-52.0); Hemoglobin 13.9 g/dl (14.0-18.0); Immature Granulocytes # (auto) 0.02 K/uL (0.01-0.20); Immature Granulocytes % (auto) 0.4 %; Lymphocytes # (auto) 0.94 K/uL (1.20-3.40); Lymphocytes % (auto) 16.9 %; Mean Corpuscular Hemoglobin 29.8 pg (25.0-34.0); Mean Corpuscular Volume 93.3 fL (80.0-100.0); Mean Platelet Volume 9.9 fL (9.4-12.4); Monocytes # (auto) 0.96 K/uL (0.11-0.59); Monocytes % (auto) 17.2 %; Neutrophils % (auto) 48.5 %; Platelet Count 144 K/uL (130-400); RDW Coefficient of Variation 14.6 % (11.5-14.5); RDW Standard Deviation 50.4 fL (36.4-46.3); Red Blood Count 4.66 M/uL (4.70-6.10); White Blood Count 5.57 K/ul (4.8-10.8)
[2024-05-18 07:24] LABS: Albumin Level 3.3 gm/dl (3.4-5.0); BUN Creatinine Ratio 27.5 (10-20); Bilirubin,Total 0.6 mg/dl (0.2-1.0); Calcium 9.6 mg/dl (8.6-10.3); Creatinine Clr Calc Pharmacy 65.6 ml/min; Est GFR (African American) 80.6 ml/min; Est GFR (Non-African American) 69.6 ml/min; Globulin 3.4 gm/dl (2.5-4.0); Magnesium 1.8 mg/dl (1.7-2.4); Potassium 3.8 mmol/L (3.5-5.1); Total Protein 6.7 gm/dl (6.0-8.3)
--- NOTE | 2024-05-18 09:32 | XRay Report ---
XR chest 2V PA/lateral CLINICAL HISTORY: Follow-up study. Shortness of breath. COMPARISON STUDY: Chest radiograph May 16, 2024. FINDINGS: There is no pneumothorax or pleural effusion. Lung volumes are normal. Left basilar opacity favors atelectasis. Cardiomediastinal silhouette is stable. There is no evidence for overt pulmonary edema. IMPRESSION: 1. Left basilar opacity favors atelectasis. 2. Mild cardiomegaly. No radiographic evidence for pulmonary edema. ACT 112: Negative or not required by law. Electronically signed by: Terrence Giraldo M.D. 05/18/2024 9:31 AM
--- NOTE | 2024-05-18 17:06 | Hospitalist Progress Note ---
Date of Service May 18, 2024 Assessment & Plan (1) LLL pneumonia: Plan: ongoing cough, poor appetite, radiographic evidence of LLL infiltrate, etc. doing poorly despite abx but is only on ancef for recent UTI. broaden the ancef to rocephin. checked COVID/flu/RSV -- negative. checked MRSA swab -- negative. if no response to rocephin then broaden to include more gram negative coverage (zosyn, cefepime, etc). 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 Keytruda not felt to have caused confusion (9) Acute on chronic respiratory failure with hypercapnia: Plan: improved s/p use of BIPAP this admission gas today with well-compensated hypercapnia/normal pH Admission and Anticipated Discharge Date Admission Date: May 10, 2024 Subjective patient lying in bed sitter at bedside sitter reports fatigue, weakness, sleeping alot no appetite mild confusion but no agitation he knew he was in the hospital but couldn't report the year correctly states he simply feels poorly very hard to understand his speech - low-pitched, marbly at times staff report ongoing cough Review of Systems Review of Systems: CV - no chest pain pulm - no dyspnea GI - no abd pain Physical Exam Physical Exam: gen - looks ill, laying in bed, keeps his eyes closed much of the visit mouth - MM slightly dry neck - no JVD heart - irregular, s1 s2, no murmur lungs - decreased BS bases, slight crackle L base, no wheeze, coughing at times; no increased work of breathing abd - soft NT ND BS+ ext - no edema, pulses 2+ b/l psych - sleepy, confused groin - left - large, firm, fixed lymph node Results & Data Results & Data Vital Signs (Past 12 Hours) Vital Signs Temp Pulse Pulse Resp BP BP Pulse Ox 05/18/24 16:10 36.3 C L 87 17 122/77 92 05/18/24 13:00 77 05/18/24 11:01 36 C L 77 16 115/72 93 05/18/24 07:39 36.4 C L 66 17 144/77 H 94 05/18/24 07:12 05/18/24 06:29 75 05/18/24 06:19 O2 Del Method 05/18/24 16:10 Room Air 05/18/24 13:00 05/18/24 11:01 Room Air 05/18/24 07:39 Room Air 05/18/24 07:12 Room Air 05/18/24 06:29 05/18/24 06:19 Room Air Laboratory Results Laboratory Results - last 24 hr 05/18/24 05/18/24 05/18/24 07:59 12:23 16:30 POC Glucose 85 100 H 114 H Nasal Screen MRSA (PCR) SARS-CoV-2 (PCR) Influenza Type A (PCR) Influenza Type B (PCR) RSV (RT-PCR) 05/18/24 05/18/24 05/19/24 17:30 20:33 07:48 POC Glucose 92 87 Nasal Screen MRSA (PCR) Negative SARS-CoV-2 (PCR) NEGATIVE Influenza Type A (PCR) Negative Influenza Type B (PCR) Negative RSV (RT-PCR) Negative PG Care Time/CCT Total # of Minutes Spent Total Time Spent with Patient: Total time spent is greater than 50% in coordination of care (as documented) at patient's floor/unit and/or counseling patient: Coding Level of Care Code 51129 SUB INP/OBS CARE 2/35MIN Diagnoses LLL pneumonia J18.9 Ischemic cardiomyopathy I25.5 Afib I48.91 DM2 (diabetes mellitus, type 2) E11.9 UTI (urinary tract infection) N39.0 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
[2024-05-18 18:35] LABS: Influenza A virus by PCR Negative (Neg); Influenza B virus by PCR Negative (Neg); RSV by PCR Negative (Neg); SARS CoV2 RNA(COVID-19) Ceph NEGATIVE (Negative)
[2024-05-18] MEDS: cefTRIAXone SODIUM 2,000 MG/50 ML BAG IV SCH (22:14)
[2024-05-19] MEDS: OLANZapine 10 MG/2.1 ML SDV IM PRN (19:10)
--- NOTE | 2024-05-19 21:09 | Hospitalist Progress Note ---
Date of Service May 19, 2024 Assessment & Plan (1) LLL pneumonia: Plan: ongoing cough, poor appetite, radiographic evidence of LLL infiltrate, etc. doing poorly despite abx but had only been on ancef for recent UTI. broadened the ancef to rocephin on 05/18/24. checked COVID/flu/RSV -- negative. checked MRSA swab -- negative. if no response to rocephin then broaden to include more gram negative coverage (zosyn, cefepime, etc). 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 dysphonia 2nd to Keytruda (literature suggests 20-30% of people can have such from Keytruda)? confusion 2nd to Keytruda? (7) Catheter-associated urinary tract infection: Plan: as above (8) Acute metabolic encephalopathy: Plan: MRI brain neg for acute or subacute CVA recent ammonia wnl some of the confusion is likely related to his UTI, pneumonia, hypercapnia, etc improved but certainly nowhere near baseline despite Rx of UTI, Rx of hypercapnia, d/c of oxycontin, etc. B12 level 330 - on replacement recent TSH wnl consider repeat MRI brain WITH contrast if confusion persists cont seroquel HS prn if confusion persists - keytruda induced confusion?? (9) Acute on chronic respiratory failure with hypercapnia: Plan: improved s/p use of BIPAP this admission Plan daughter extensively updated anorexia & confusion preclude discussions about discharge at this time Admission and Anticipated Discharge Date Admission Date: May 10, 2024 Subjective pt's daughter at bedside during the visit she raises concerns about ongoing delirium she reports 3-4 + weeks ago he was of sound mind & judgement he was independent with all ADLs, etc he remains confused; was saying odd, unrelated things to the daughter & myself during the visit denied any complaints except for feeling weak and tired appetite remains very, very poor tele - a.fib per staff no agitation overnight Review of Systems Review of Systems: denies pain in any location denies dyspnea Physical Exam Physical Exam: gen - awake, alert, follows commands - but pleasantly confused, mumbling throughout the visit, hard to understand his speech at times mouth - MMM, no thrush neck - no JVD heart - irregular, s1 s2, no murmur lungs - decreased BS bases, slight crackle L base, no wheeze abd - soft NT ND BS+ ext - no edema, pulses 2+ b/l psych - confused, oriented to person only Results & Data Results & Data Vital Signs (Past 12 Hours) Vital Signs Temp Pulse Pulse Resp BP Pulse Ox O2 Del Method 05/19/24 15:24 88 05/19/24 14:40 36.6 C 70 20 129/87 93 Room Air 05/19/24 11:26 36.8 C 79 20 140/88 93 Room Air Laboratory Results Laboratory Results - last 24 hr 05/19/24 05/19/24 05/19/24 07:48 11:29 16:54 POC Glucose 87 118 H 95 05/19/24 21:01 POC Glucose 94 PG Care Time/CCT Total # of Minutes Spent Total Time Spent with Patient: Total time spent is greater than 50% in coordination of care (as documented) at patient's floor/unit and/or counseling patient: Coding Level of Care Code 49131 SUB INP/OBS CARE 2/35MIN Diagnoses LLL pneumonia J18.9 Ischemic cardiomyopathy I25.5 Afib I48.91 DM2 (diabetes mellitus, type 2) E11.9 UTI (urinary tract infection) N39.0 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
[2024-05-19] MEDS: OLANZapine 10 MG/2.1 ML SDV IM STA (21:44)
[2024-05-20] MEDS ORDERED: OLANZapine 10 MG/2.1 ML SDV IM PRN (01:05)
[2024-05-20] MEDS: OLANZapine 10 MG/2.1 ML SDV IM STA (01:59)
[2024-05-20 04:17] LABS: BUN Creatinine Ratio 19.2 (10-20); Calcium 9.9 mg/dl (8.6-10.3); Creatinine Clr Calc Pharmacy 53.4 ml/min; Est GFR (African American) 63.1 ml/min; Est GFR (Non-African American) 54.4 ml/min; Potassium 3.9 mmol/L (3.5-5.1)
[2024-05-20 04:18] LABS: Base Excess VBG 5.3 mEq/L; HCO3 VBG 32 mmol/L; PCO2 VBG 54 mmHg (38-50); PO2 VBG 44 mmHg; pH VBG 7.38 (7.36-7.41)
[2024-05-20 04:19] LABS: Basophils # (auto) 0.04 K/uL (0.00-0.20); Basophils % (auto) 0.6 %; Eosinophils # (auto) 0.52 K/uL (0.00-0.50); Eosinophils % (auto) 8.2 %; Hematocrit (blood only) 45.6 % (42.0-52.0); Hemoglobin 14.7 g/dl (14.0-18.0); Immature Granulocytes # (auto) 0.03 K/uL (0.01-0.20); Immature Granulocytes % (auto) 0.5 %; Lymphocytes # (auto) 1.17 K/uL (1.20-3.40); Lymphocytes % (auto) 18.3 %; Mean Corpuscular Hemoglobin 29.9 pg (25.0-34.0); Mean Corpuscular Hgb Conc 32.2 g/dL (32.0-36.0); Mean Corpuscular Volume 92.9 fL (80.0-100.0); Mean Platelet Volume 10.1 fL (9.4-12.4); Monocytes # (auto) 1.15 K/uL (0.11-0.59); Neutrophils # (auto) 3.47 K/uL (1.40-6.50); Neutrophils % (auto) 54.4 %; Platelet Count 157 K/uL (130-400); RDW Coefficient of Variation 14.4 % (11.5-14.5); RDW Standard Deviation 49.3 fL (36.4-46.3); Red Blood Count 4.91 M/uL (4.70-6.10); White Blood Count 6.38 K/ul (4.8-10.8)
[2024-05-20] MEDS: GADOBUTROL 65ML VIAL IV ONE (09:20)
--- NOTE | 2024-05-20 14:24 | Magnetic Resonance Report ---
Brain MRI WITH AND WITHOUT CONTRAST HISTORY: severe delirium; keytruda induced encephalitis?? TECHNIQUE: Multiplanar multisequence MRI of the brain was performed both before and after the intrave nous administration of contrast. COMPARISON STUDY: Head CT 05/10/2024. Brain MRI 05/12/2024. FINDINGS: There are no areas of restricted diffusion to suggest acute infarction. The midline structu res are intact. Mild mucosal thickening within the ethmoid air cells trace bilateral mastoid effusion s. The ventricles and sulci demonstrate mild age-related involutional changes.. There is no mass, hem atoma, midline shift. The major vascular flow-voids at the skull base are well maintained. Postcontra st sequences show no areas of abnormal enhancement. IMPRESSION: No significant change compared to the prior study. No acute intracranial abnormality. ACT 112: Negative or not required by law. Electronically signed by: Kevyn Golden M.D. 05/20/2024 2:22 PM
[2024-05-20 17:40] LABS: Base Excess VBG 7.3 mEq/L; HCO3 VBG 34 mmol/L; Oxygen Saturation VBG 84.3 %; PCO2 VBG 58 mmHg (38-50); PO2 VBG 53 mmHg; pH VBG 7.38 (7.36-7.41)
--- NOTE | 2024-05-20 17:57 | XRay Report ---
XR chest 1V portable CLINICAL HISTORY: LLL pneumonia, worsening resp status/hypoxia COMPARISON STUDY: Chest radiograph May 18, 2024. FINDINGS: Lung volumes are normal. There is no consolidation to suggest pneumonia. Linear left basila r density favors atelectasis. There is no pneumothorax. Trace left pleural effusion. Cardiac size is stable. Mediastinal contours are normal. There is no evidence for pulmonary edema. IMPRESSION: Trace left pleural effusion with linear left basilar density suggestive of atelectasis. N o consolidation to suggest pneumonia. ACT 112: Negative or not required by law. Electronically signed by: Terrence Giraldo M.D. 05/20/2024 5:56 PM
--- NOTE | 2024-05-20 20:27 | Hospitalist Progress Note ---
Date of Service May 20, 2024 Assessment & Plan (1) LLL pneumonia: Plan: ongoing cough, poor appetite, radiographic evidence of LLL infiltrate, etc. doing poorly despite abx but had only been on ancef for recent UTI. broadened the ancef to rocephin on 05/18/24. checked COVID/flu/RSV -- negative. checked MRSA swab -- negative. of note - he has been receiving some form of IV abx since 05/10 (day of admission). thus - today is day #11 of abx. can likely stop all abx and observe off as the LLL infiltrate on cxr today looks better and given how long he has received abx therapy. (2) Ischemic cardiomyopathy: Plan: EF 45-50% compensated on exam today or modestly volume contracted defer on fluids for now; reassess tomorrow cont meto succ or convert to IV lopressor if need be (3) Afib: Plan: cont meto succ if able to take PO; otherwise IV lopressor cont Eliquis BID rates are fast at times when agitated (4) DM2 (diabetes mellitus, type 2): Plan: BSGs very well controlled in setting of severe anorexia (5) UTI (urinary tract infection): Plan: 2nd to Pantoea (Entero) agglomerans previously on ancef switched to rocephin for #1 above on 05/18/24 this is catheter-associated UTI due to SP catheter status has had 10+ days of Rx can stop abx wbc count wnl crp is minimal and lower than prior no fevers (6) 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 confusion 2nd to Keytruda? (7) Catheter-associated urinary tract infection: Plan: as above (8) Acute metabolic encephalopathy: Plan: MRI brain neg for acute or subacute CVA earlier this admission recent ammonia wnl repeat level also wnl some of the confusion is likely related to his UTI, pneumonia, hypercapnia, etc B12 level 330 - on replacement recent TSH wnl I ordered repeat MRI brain WITH contrast due to persistence of confusion - again negative repeat cxr with improved LLL infiltrate had severe sundowning overnight this may be persistent delirium which can take weeks to clear only other test we could pursue would be an LP but low yield and would have to be off anticoagulation for 2+ days keytruda induced confusion?? literature suggests risk of such is <1% thus doubtful (and MRI brain x 2 negative) cont empiric thiamine (9) Acute on chronic respiratory failure with hypercapnia: Plan: placed on BIPAP again this afternoon leave on until mental status improves this will keep pCO2s in check Plan daughter extensively updated during my bedside visit yesterday I am concerned by his overall lack of progress especially as it relates to #8 above Admission and Anticipated Discharge Date Admission Date: May 10, 2024 Subjective patient unable to provide any history or ROS during the visit he was very sleepy when I asked him questions he was simply mumbling and I could not understand anything he was saying overnight had SEVERE delirium and agitation leading to use of restraints again had received PO seroquel early in the evening, then had IM zyprexa later on since those meds has been sleeping most of today during my visit I asked respiratory to place him back on BIPAP while sleeping soft limb restraints still in place per staff, if they are removed, he will kick his legs, thrash his arms around, attempt to kick staff, pull at IVs, etc Review of Systems Review of Systems: Unobtainable due to cognitive status Physical Exam Physical Exam: gen - tachypneic, eyes open but severely altered, mumbling words that are unintelligible mouth - MM very dry neck - no JVD heart - irregular, tachy, s1 s2, no murmur lungs - decreased BS bases, tachypneic, no wheezing abd - soft NT ND BS+ ext - no edema, pulses 2+ b/l psych - lethargic, altered (severe) neuro - moving all 4 limbs spontaneously Results & Data Results & Data Vital Signs (Past 12 Hours) Vital Signs Temp Pulse Pulse Resp BP BP Pulse Ox 05/20/24 19:30 104 H 05/20/24 19:13 36.5 C 115 H 28 H 109/65 96 05/20/24 15:51 117 H 05/20/24 14:26 37.3 C 96 H 24 154/86 H 95 05/20/24 10:17 37.1 C 96 H 24 133/57 L 96 O2 Del Method O2 Flow Rate 05/20/24 19:30 05/20/24 19:13 BiPAP 05/20/24 15:51 05/20/24 14:26 Nasal Cannula 2 05/20/24 10:17 Nasal Cannula 2 Laboratory Results Laboratory Results 05/19/24 05/19/24 05/19/24 11:29 16:54 21:01 WBC RBC Hgb Hct MCV MCH MCHC RDW Std Deviation RDW Coeff of Manuel Plt Count MPV Immature Gran % (Auto) Neut % (Auto) Lymph % (Auto) [place] % (Auto) Eos % (Auto) Baso % (Auto) Neut # (Auto) Lymph # (Auto) [place] # (Auto) Eos # (Auto) Baso # (Auto) Immature Gran # (Auto) VBG pH VBG pCO2 VBG pO2 VBG HCO3 VBG O2 Saturation VBG Base Excess Sodium Potassium Chloride Carbon Dioxide Anion Gap BUN Creatinine Est Cr Clr Drug Dosing Est GFR ( Amer) Est GFR (Non-Af Amer) BUN/Creatinine Ratio Glucose POC Glucose 118 H 95 94 Calcium Ammonia C-Reactive Protein 05/20/24 05/20/24 05/20/24 03:26 09:35 12:06 WBC 6.38 RBC 4.91 Hgb 14.7 Hct 45.6 MCV 92.9 MCH 29.9 MCHC 32.2 RDW Std Deviation 49.3 H RDW Coeff of Manuel 14.4 Plt Count 157 MPV 10.1 Immature Gran % (Auto) 0.5 Neut % (Auto) 54.4 Lymph % (Auto) 18.3 [place] % (Auto) 18.0 Eos % (Auto) 8.2 Baso % (Auto) 0.6 Neut # (Auto) 3.47 Lymph # (Auto) 1.17 L [place] # (Auto) 1.15 H Eos # (Auto) 0.52 H Baso # (Auto) 0.04 Immature Gran # (Auto) 0.03 VBG pH 7.38 VBG pCO2 54 H VBG pO2 44 VBG HCO3 32 VBG O2 Saturation 79.0 VBG Base Excess 5.3 Sodium 141 Potassium 3.9 Chloride 103 Carbon Dioxide 32 Anion Gap 6 BUN 24 H Creatinine 1.25 Est Cr Clr Drug Dosing 53.4 Est GFR ( Amer) 63.1 Est GFR (Non-Af Amer) 54.4 BUN/Creatinine Ratio 19.2 Glucose 106 H POC Glucose 98 89 Calcium 9.9 Ammonia 18.0 C-Reactive Protein 05/20/24 05/20/24 16:17 17:24 WBC RBC Hgb Hct MCV MCH MCHC RDW Std Deviation RDW Coeff of Manuel Plt Count MPV Immature Gran % (Auto) Neut % (Auto) Lymph % (Auto) [place] % (Auto) Eos % (Auto) Baso % (Auto) Neut # (Auto) Lymph # (Auto) [place] # (Auto) Eos # (Auto) Baso # (Auto) Immature Gran # (Auto) VBG pH 7.38 VBG pCO2 58 H VBG pO2 53 VBG HCO3 34 VBG O2 Saturation 84.3 VBG Base Excess 7.3 Sodium Potassium Chloride Carbon Dioxide Anion Gap BUN Creatinine Est Cr Clr Drug Dosing Est GFR ( Amer) Est GFR (Non-Af Amer) BUN/Creatinine Ratio Glucose POC Glucose 91 Calcium Ammonia C-Reactive Protein 1.72 H Diagnostic Findings Brain MRI 05/20/24 07:52 Brain MRI WITH AND WITHOUT CONTRAST HISTORY: severe delirium; keytruda induced encephalitis?? TECHNIQUE: Multiplanar multisequence MRI of the brain was performed both before and after the intravenous administration of contrast. COMPARISON STUDY: Head CT 05/10/2024. Brain MRI 05/12/2024. FINDINGS: There are no areas of restricted diffusion to suggest acute infarction. The midline structures are intact. Mild mucosal thickening within the ethmoid air cells trace bilateral mastoid effusions. The ventricles and sulci demonstrate mild age-related involutional changes.. There is no mass, hematoma, midline shift. The major vascular flow-voids at the skull base are well maintained. Postcontrast sequences show no areas of abnormal enhancement. IMPRESSION: No significant change compared to the prior study. No acute intracranial abnormality. ACT 112: Negative or not required by law. Electronically signed by: Kevyn Golden M.D. 05/20/2024 2:22 PM Chest X-Ray 05/20/24 17:03 XR chest 1V portable CLINICAL HISTORY: LLL pneumonia, worsening resp status/hypoxia COMPARISON STUDY: Chest radiograph May 18, 2024. FINDINGS: Lung volumes are normal. There is no consolidation to suggest pneumonia. Linear left basilar density favors atelectasis. There is no pneumothorax. Trace left pleural effusion. Cardiac size is stable. Mediastinal contours are normal. There is no evidence for pulmonary edema. IMPRESSION: Trace left pleural effusion with linear left basilar density suggest karen of atelectasis. No consolidation to suggest pneumonia. ACT 112: Negative or not required by law. Electronically signed by: Terrence Giraldo M.D. 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
[2024-05-20] MEDS: diazePAM 5 MG/ML 10ML VIAL IM STA ×2 (21:23→23:33)
[2024-05-20] MEDS: SODIUM CHLORIDE 0.9% 500 ML IV ONE (21:24)
--- NOTE | 2024-05-20 21:49 | Communication Note ---
Date of Service: May 20, 2024 Alerted by nursing that patient with increased agitation. Has had a significant amount of Olanzapine which caused him to sleep pretty much all day. Did try IM haldol earlier in hospital stay which did make him a little weird. Olanzapine does seem to work, but ideally patient would have a more normal sleep/wake cycle to help with resolution of delirium. Prior to recent illness patient was able to perform all of his ADLs. Of note patient has been refusing home meds and has had decreased PO intake. Did give a one time dose of 1mg/kg Lovenox as patient has been without Eliquis for several days. Patient with elevated rates (130s-140s) and known history of a fib. Did give 500 mL bolus and start IVF @ 125 mL x1.5 L for 2 L total. Patient did not have his AM metop today either, which may be contributing to rates. Rates improved with IVF. Hold off on IV metoprolol tartrate for now. Repeat VBG this afternoon with minimal hypercapnia at 58. As patient severely agitated requiring antipsychotics/sedatives and physical restraints, will hold off on BiPAP. With agitation will try 5 mg IM valium, which improved agitation. Repeated dose - continue to monitor. Resident Activity Tracking Resident Involvement: Resident Care Provided Care Provided: Adult Hospital Medicine
[2024-05-20] MEDS: ENOXAPARIN 100 MG/1ML SYR SQ ONE (21:51)
[2024-05-20] MEDS: SODIUM CHLORIDE 0.9% 1,000 ML IV SCH (22:06)
[2024-05-20] MEDS: MAGNESIUM SULFATE / D5W 1 GM/100 ML BAG IV SCH (23:30)
[2024-05-21] MEDS: METOPROLOL TARTRATE 1 MG/ML VIAL IV SCH ×2 (09:41→12:35)
[2024-05-21] MEDS: THIAMINE HCL 500 MG in SODIUM CHLORIDE 0.9% 50 ML IV SCH (10:29)
[2024-05-21 11:00] LABS: Base Excess VBG 7.3 mEq/L; HCO3 VBG 34 mmol/L; Oxygen Saturation VBG 93.1 %; PCO2 VBG 58 mmHg (38-50); PO2 VBG 58 mmHg; pH VBG 7.38 (7.36-7.41)
[2024-05-21 11:12] LABS: Basophils # (auto) 0.04 K/uL (0.00-0.20); Basophils % (auto) 0.7 %; Eosinophils # (auto) 0.28 K/uL (0.00-0.50); Eosinophils % (auto) 4.9 %; Hemoglobin 13.8 g/dl (14.0-18.0); Immature Granulocytes # (auto) 0.02 K/uL (0.01-0.20); Immature Granulocytes % (auto) 0.3 %; Lymphocytes # (auto) 0.89 K/uL (1.20-3.40); Lymphocytes % (auto) 15.5 %; Mean Corpuscular Hemoglobin 30.3 pg (25.0-34.0); Mean Corpuscular Hgb Conc 32.1 g/dL (32.0-36.0); Mean Corpuscular Volume 94.5 fL (80.0-100.0); Mean Platelet Volume 10.1 fL (9.4-12.4); Monocytes % (auto) 19.1 %; Neutrophils # (auto) 3.43 K/uL (1.40-6.50); Neutrophils % (auto) 59.5 %; Platelet Count 166 K/uL (130-400); RDW Coefficient of Variation 14.7 % (11.5-14.5); RDW Standard Deviation 51.3 fL (36.4-46.3); Red Blood Count 4.55 M/uL (4.70-6.10); White Blood Count 5.76 K/ul (4.8-10.8)
[2024-05-21 11:23] LABS: Albumin Globulin Ratio 0.9 (0.9-2); Albumin Level 3.4 gm/dl (3.4-5.0); BUN Creatinine Ratio 20.5 (10-20); Bilirubin,Total 1.4 mg/dl (0.2-1.0); Calcium 9.5 mg/dl (8.6-10.3); Creatinine Clr Calc Pharmacy 53.4 ml/min; Globulin 3.6 gm/dl (2.5-4.0); Potassium 4.3 mmol/L (3.5-5.1)
--- NOTE | 2024-05-21 12:52 | Neurology Consultation ---
Date of Consultation May 21, 2024 Assessment & Plan (1) Acute metabolic encephalopathy: History of Present Illness Attending Physician: Alexei Peña MD History of Present Illness pt today drowsy but able to follow simple commands and easily awaken when stimulated. pt able to understand simple instruction and able to express his feeling. mri brain with SHANTE negative. pt with sundowning and episodic confusion at times. according to Hem/onc note, they believe pt is having immuontherapy related side effect along with UTI/pneumonia and med side effects. chart reviewed. 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 Has had darkened urine output in his suprapubic catheter. Lives alone, and seems much more confused than this is normal. Has been on oxycodone long-acting every 12 hours and breakthrough oxycodone. Does not appear narcotize at the bedside but is very confused. Denies fever, chills, sweats. Endorses some chronic penile discomfort due to his cancer. They are pursuing chemotherapy with Keytruda, next infusion was due to be Friday. He denies fever, chills. Denies chest pain or shortness of breath. Endorses fatigue. No vision change. No hearing change. No focal extremity weakness Allergies Allergy/AdvReac Type Severity Reaction Status Date / Time carvedilol [From Coreg] Allergy Unknown pt not sure Verified 03/26/24 07:05 ezetimibe [From Zetia] Allergy Unknown muscle Verified 03/26/24 07:05 aches fluvastatin Allergy Unknown muscle Verified 03/26/24 07:05 aches gemfibrozil Allergy Unknown muscle Verified 03/26/24 07:05 aches pravastatin Allergy Unknown muscle Verified 03/26/24 07:05 aches simvastatin Allergy Unknown muscle Verified 03/26/24 07:05 aches sulfamethoxazole Allergy Unknown pt not sure Verified 03/26/24 07:05 [From Bactrim] trimethoprim [From Bactrim] Allergy Unknown pt not sure Verified 03/26/24 07:05 Home Medications Medication Instructions Recorded Confirmed Type metoprolol succinate 100 mg 100 mg PO QAM 01/12/24 05/10/24 History tablet,extended release 24 hr polyethylene glycol 3350 17 17 g PO QAM 01/12/24 05/10/24 History gram/dose oral powder tamsulosin 0.4 mg capsule 0.4 mg PO BID 01/12/24 05/10/24 History torsemide 10 mg tablet 10 mg PO DAILY PRN Weight Gain 01/12/24 05/10/24 History tramadol 50 mg tablet 50 mg PO UD PRN Pain 01/12/24 05/10/24 History valsartan 160 mg tablet 80 mg PO BID 01/12/24 05/10/24 History ascorbic acid (vitamin C) 1,000 mg 1 g PO QAM 01/14/24 05/10/24 History tablet (Vitamin C) aspirin 81 mg tablet,delayed 81 mg PO QAM 01/14/24 05/10/24 History release cholecalciferol (vitamin D3) 50 50 mcg PO QAM 01/14/24 05/10/24 History mcg (2,000 unit) capsule (Vitamin D3) metformin 500 mg tablet 500 mg PO BID 01/14/24 05/10/24 History mineral oil-hydrophil petrolat 1 applic topical UD PRN catheter 01/14/24 05/10/24 History topical ointment area oxybutynin chloride 5 mg 5 mg PO DAILY #30 tabs 03/29/24 05/10/24 Rx tablet,extended release 24 hr lidocaine 5 % topical ointment 1 applic topical TID PRN pain #30 04/02/24 05/10/24 Rx grams oxycodone 10 mg tablet,crush 10 mg PO Q12H cancer pain 1 month 04/29/24 05/10/24 Rx resistant,extended release 12 hr #60 tabs (OxyContin) oxycodone 5 mg tablet 5 mg PO .Q4-6H PRN Pain 05/10/24 05/10/24 History Patient History Medical History History of pulmonary embolism Hx MRSA infection (12/2023) foot ulcers, treated w/ Vanco at [facility] Hx of sepsis (01/18/24) admitted at [facility] w/ sepsis from foot ulcers Hx of diabetic foot ulcer (12/2023) right and left big toe; in process of healing, seeing [facility] wound clinic Cirrhosis 12/17/2023 Diabetes mellitus NIDDM History of COVID-19 (~2021) Neuropathy Hospice care patient for past 2 yrs. Kidney disease unknown details Ull[place] catheter in place History of UTI multiple Penile cancer dx 2021 Sleep apnea suspected/sleep study yrs ago/oxygen recommended pt declined. Shortness of breath mostly at night. Poor historian Coronary artery disease 1998: LAD 70, LCX [place], RCA 90, failed balloon angioplasty; NSTEMI 2017, patient declined cath; per [facility] records History of [place] (myocardial infarction) 4 or 5/last one a few yrs ago. Surgical History History of eyelid surgery History of urologic surgery multiple on penis. most recent in office procedure december 2023. History of cardiac cath hx x 1 attempted/unsuccessful. sx was recommended "told never would live through it" Social History Smoking Status: Former smoker Second Hand Exposure: No; Do You Dip or Chew Tobacco: No; Hx Alcohol Use: No Hx Substance Use: No Preferred Language: Ukrainian Communication Ability: Effective Traveling Construction Superintendent Required: No Beliefs That Will Affect Care: None Current Living Situation: Alone Feels Safe at Home: Yes Assistive Devices: Cane Exam (Neuro) Physical Exam: HEENT: normocephalic grossly Neuro: Mental: Drowsy, able to show me left and rt thumbs up, follows simple commands. makes simple speech. , fluent speech, , no apraxia, no L/R confusion, CN: PERRL, Full EOM grossly., symmetric face, Motor: No abnormal movements, normal tone, moves all limbs spontaneously. Sens:withdraws to pain b/l Coord:deferred. DTR: 1+ sym b/l, toes down b/l Gait: deferred. 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 Overall likely multifactorial, agree with Hem/oncology that his recent multiple infections with poor sleep and immunomed likely all contributing. It take longer for elderly pt to recover from systemic infections. no clear suggestion of HAND CLOTH EXAMINER infection or lesion. less likely paraneoplastic encephalitis at this point. Recommendations: avoid sedative meds during day time. use seroquel only for severe agitation during daytime. for night, order standing dose of seroquel 50mg po qhs to help with sleep. do not use other benzo or other antipsychotic meds avoid anticholinergic and antidopaminergic meds continue infection tx. do recommend getting CSF studies to complete the work up, for LP, Eliquis can be held for 48 hrs prior to the LP, restart after 8 hrs if clean tap, if traumatic tap, hold for another 48 hrs. get routine CSF cell count, meningitis panel, glucose, protein, cultures, HSV PCR. supportive care and good nutritional care to avoid dehydration and malnutrition. try to get pt up to chair and out of bed much as possible. Chart reviewed I have spent more than 50% educating patient about potential diagnosis and neurological evaluation and coordinating care with patient's treatment team. Total time spent (including chart review and coordination of care): 60 min (this includes chart review). Results & Data Vital Signs (Past 12 Hours) Vital Signs Temp Pulse Pulse Resp BP BP BP 05/21/24 11:36 37.4 C 93 H 18 92/58 L 88/56 L 05/21/24 11:24 37 C 104 H 18 99/69 L 05/21/24 10:30 87 119/86 05/21/24 08:00 05/21/24 07:22 99 H 05/21/24 07:07 36.9 C 100 H 16 151/80 H 05/21/24 03:11 36.7 C 103 H 36 H 127/82 Pulse Ox O2 Del Method O2 Flow Rate 05/21/24 11:36 98 Nasal Cannula 2 05/21/24 11:24 98 Nasal Cannula 2 05/21/24 10:30 05/21/24 08:00 Nasal Cannula 2 05/21/24 07:22 05/21/24 07:07 93 Nasal Cannula 2 05/21/24 03:11 94 Nasal Cannula 2 PG Care Time/CCT Total # of Minutes Spent Total Time Spent with Patient: Total time spent is greater than 50% in coordination of care (as documented) at patient's floor/unit and/or counseling patient: Coding Level of Care Code 52250 IN/OBS CONSULT LVL 4,60M Diagnoses Acute metabolic encephalopathy G93.41
--- NOTE | 2024-05-21 12:59 | Hospitalist Progress Note ---
Date of Service May 21, 2024 Assessment & Plan (1) Acute metabolic encephalopathy: Plan: ongoing severe MRI brain neg for acute or subacute CVA earlier this admission repeat MRI brain w/ contrast again negative recent ammonia wnl repeat level also wnl repeat cxr with improved LLL infiltrates some of the confusion is likely related to his recent UTI, pneumonia, hypercapnia, etc B12 level 330 - on replacement recent TSH wnl remains on empiric thiamine asked Dr Alfaro from neurology to consult he advises LP to r/o infectious causes of the INK GRINDER contributing to his delirium unfortunately he is on anticoagulation and this will need to be held and I do not think he would tolerate an LP at this time due to agitation will attempt to get LP next couple of days my suspicion for meningitis/encephalitis is very very low 1-2% chance of Keytruda induced encephalitis but this would be dx of exclusion start seroquel 50mg HS AVOID ALL BENZOS/sedatives d/c tele move to med/surg repeat a BioFire resp panel today (2) LLL pneumonia: Plan: completed 10+ days of IV abx d/c all abx - observe off of such repeat a BioFire today due to conjunctivits (3) Ischemic cardiomyopathy: Plan: EF 45-50% compensated cont beta prashant therapy (4) Afib: Plan: cont metoprolol HOLD Eliquis due to need for LP (5) DM2 (diabetes mellitus, type 2): Plan: BSGs very well controlled in setting of severe anorexia (6) UTI (urinary tract infection): Plan: 2nd to [employer] (Entero) agglomerans previously on ancef then switched to rocephin this is catheter-associated UTI due to SP catheter status has had 10+ days of Rx can stop abx (7) 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 confusion 2nd to Keytruda? (8) Catheter-associated urinary tract infection: Plan: as above (9) Acute on chronic respiratory failure with hypercapnia: Plan: has needed BIPAP on/off this admission when he is confused/delirious/lethargic he has tachypnea and some increased work of breathing cont BIPAP prn most recent blood gas with acceptable parameters (10) Conjunctivitis: Plan: cipro eye drops b/l QID send a new respiratory BioFire panel Plan daughter extensively updated at bedside today appreciate neuro consult d/c tele (has been a.fib only 10+ days) - move to med/surg with room with lots of light/windows/quiet environment Admission and Anticipated Discharge Date Admission Date: May 10, 2024 Subjective tele overnight - a.fib, rates 90s to low 100s most times had bad night of owning/severe agitation/delirium restraints needed again ultimately was given IM valium 5mg x 1 since the valium has been lethargic/sleepy able to wake up and follow some basic commands but I cannot understand his speech - garbled no PO intake in 7+ days daughter at bedside during my visit - she is very upset at seeing her father so delirious and in restraints Review of Systems Review of Systems: Unobtainable due to cognitive status Physical Exam Physical Exam: gen - altered/lethargic; will open eyes when his name is called and follow simple commands but speech is garbled & unintelligible mouth - MM very dry eyes - crusting of eyelids with conjunctival injection b/l neck - no JVD heart - irregular, borderline tachy, s1 s2, no murmur lungs - decreased BS bases, tachypnea better today, no wheezing abd - soft NT ND BS+ ext - no edema, pulses 2+ b/l psych - lethargic musculo - arms/wrists in soft limb restraints neuro - moving all 4 limbs spontaneously skin - SP cath site lower abdomen clean Results & Data Results & Data Vital Signs (Past 12 Hours) Vital Signs Temp Pulse Pulse Resp BP BP BP 05/21/24 11:36 37.4 C 93 H 18 92/58 L 88/56 L 05/21/24 11:24 37 C 104 H 18 99/69 L 05/21/24 10:30 87 119/86 05/21/24 08:00 05/21/24 07:22 99 H 05/21/24 07:07 36.9 C 100 H 16 151/80 H 05/21/24 03:11 36.7 C 103 H 36 H 127/82 Pulse Ox O2 Del Method O2 Flow Rate 05/21/24 11:36 98 Nasal Cannula 2 05/21/24 11:24 98 Nasal Cannula 2 05/21/24 10:30 05/21/24 08:00 Nasal Cannula 2 05/21/24 07:22 05/21/24 07:07 93 Nasal Cannula 2 05/21/24 03:11 94 Nasal Cannula 2 Laboratory Results Laboratory Results - last 48 hr 05/20/24 05/20/24 05/20/24 09:35 12:06 16:17 WBC RBC Hgb Hct MCV MCH MCHC RDW Std Deviation RDW Coeff of Manuel Plt Count MPV Immature Gran % (Auto) Neut % (Auto) Lymph % (Auto) [place] % (Auto) Eos % (Auto) Baso % (Auto) Neut # (Auto) Lymph # (Auto) [place] # (Auto) Eos # (Auto) Baso # (Auto) Immature Gran # (Auto) VBG pH VBG pCO2 VBG pO2 VBG HCO3 VBG O2 Saturation VBG Base Excess Sodium Potassium Chloride Carbon Dioxide Anion Gap BUN Creatinine Est Cr Clr Drug Dosing Est GFR ( Amer) Est GFR (Non-Af Amer) BUN/Creatinine Ratio Glucose POC Glucose 98 89 91 Calcium Phosphorus Magnesium Total Bilirubin AST ALT Alkaline Phosphatase C-Reactive Protein Total Protein Albumin Globulin Albumin/Globulin Ratio Triglycerides Procalcitonin Adenovirus (PCR) B. pertussis DNA (PCR) B.parapertussis DNA PCR C. pneumoniae DNA (PCR) Coronavirus OC43 (PCR) Coronavirus HKU1 (PCR) Coronavirus 229E (PCR) SARS-CoV-2 (PCR) Coronavirus NL63 (PCR) Human Metapneumovir PCR Influenza Type A (PCR) Influenza Type B (PCR) M. pneumoniae (PCR) Parainfluenza 1 (PCR) Parainfluenza 2 (PCR) Parainfluenza 3 (PCR) Parainfluenza 4 (PCR) RSV (PCR) Entero/Rhino (PCR) 05/20/24 05/20/24 05/21/24 17:24 20:05 08:01 WBC RBC Hgb Hct MCV MCH MCHC RDW Std Deviation RDW Coeff of Manuel Plt Count MPV Immature Gran % (Auto) Neut % (Auto) Lymph % (Auto) [place] % (Auto) Eos % (Auto) Baso % (Auto) Neut # (Auto) Lymph # (Auto) [place] # (Auto) Eos # (Auto) Baso # (Auto) Immature Gran # (Auto) VBG pH 7.38 VBG pCO2 58 H VBG pO2 53 VBG HCO3 34 VBG O2 Saturation 84.3 VBG Base Excess 7.3 Sodium Potassium Chloride Carbon Dioxide Anion Gap BUN Creatinine Est Cr Clr Drug Dosing Est GFR ( Amer) Est GFR (Non-Af Amer) BUN/Creatinine Ratio Glucose POC Glucose 90 93 Calcium Phosphorus Magnesium Total Bilirubin AST ALT Alkaline Phosphatase C-Reactive Protein 1.72 H Total Protein Albumin Globulin Albumin/Globulin Ratio Triglycerides Procalcitonin Adenovirus (PCR) B. pertussis DNA (PCR) B.parapertussis DNA PCR C. pneumoniae DNA (PCR) Coronavirus OC43 (PCR) Coronavirus HKU1 (PCR) Coronavirus 229E (PCR) SARS-CoV-2 (PCR) Coronavirus NL63 (PCR) Human Metapneumovir PCR Influenza Type A (PCR) Influenza Type B (PCR) M. pneumoniae (PCR) Parainfluenza 1 (PCR) Parainfluenza 2 (PCR) Parainfluenza 3 (PCR) Parainfluenza 4 (PCR) RSV (PCR) Entero/Rhino (PCR) 05/21/24 05/21/24 05/21/24 10:42 12:56 13:24 WBC 5.76 RBC 4.55 L Hgb 13.8 L Hct 43.0 MCV 94.5 MCH 30.3 MCHC 32.1 RDW Std Deviation 51.3 H RDW Coeff of Manuel 14.7 H Plt Count 166 MPV 10.1 Immature Gran % (Auto) 0.3 Neut % (Auto) 59.5 Lymph % (Auto) 15.5 [place] % (Auto) 19.1 Eos % (Auto) 4.9 Baso % (Auto) 0.7 Neut # (Auto) 3.43 Lymph # (Auto) 0.89 L [place] # (Auto) 1.10 H Eos # (Auto) 0.28 Baso # (Auto) 0.04 Immature Gran # (Auto) 0.02 VBG pH 7.38 VBG pCO2 58 H VBG pO2 58 VBG HCO3 34 VBG O2 Saturation 93.1 VBG Base Excess 7.3 Sodium 143 Potassium 4.3 Chloride 106 Carbon Dioxide 30 Anion Gap 7 BUN 25 H Creatinine 1.22 Est Cr Clr Drug Dosing 53.4 Est GFR ( Amer) 65.0 Est GFR (Non-Af Amer) 56.0 BUN/Creatinine Ratio 20.5 H Glucose 100 H POC Glucose 87 Calcium 9.5 Phosphorus Magnesium Total Bilirubin 1.4 H AST 73 H ALT 34 Alkaline Phosphatase 52 C-Reactive Protein Total Protein 7.0 Albumin 3.4 Globulin 3.6 Albumin/Globulin Ratio 0.9 Triglycerides Procalcitonin 0.09 Adenovirus (PCR) Not Detected B. pertussis DNA (PCR) Not Detected B.parapertussis DNA PCR Not Detected C. pneumoniae DNA (PCR) Not Detected Coronavirus OC43 (PCR) Not Detected Coronavirus HKU1 (PCR) Not Detected Coronavirus 229E (PCR) Not Detected SARS-CoV-2 (PCR) Not Detected Coronavirus NL63 (PCR) Not Detected Human Metapneumovir PCR Not Detected Influenza Type A (PCR) Not Detected Influenza Type B (PCR) Not Detected M. pneumoniae (PCR) Not Detected Parainfluenza 1 (PCR) Not Detected Parainfluenza 2 (PCR) Not Detected Parainfluenza 3 (PCR) Not Detected Parainfluenza 4 (PCR) Not Detected RSV (PCR) Not Detected Entero/Rhino (PCR) Not Detected 05/21/24 05/21/24 14:08 17:37 WBC RBC Hgb Hct MCV MCH MCHC RDW Std Deviation RDW Coeff of Manuel Plt Count MPV Immature Gran % (Auto) Neut % (Auto) Lymph % (Auto) [place] % (Auto) Eos % (Auto) Baso % (Auto) Neut # (Auto) Lymph # (Auto) [place] # (Auto) Eos # (Auto) Baso # (Auto) Immature Gran # (Auto) VBG pH VBG pCO2 VBG pO2 VBG HCO3 VBG O2 Saturation VBG Base Excess Sodium Potassium Chloride Carbon Dioxide Anion Gap BUN Creatinine Est Cr Clr Drug Dosing Est GFR ( Amer) Est GFR (Non-Af Amer) BUN/Creatinine Ratio Glucose POC Glucose 87 Calcium Phosphorus 3.0 Magnesium 2.1 Total Bilirubin AST ALT Alkaline Phosphatase C-Reactive Protein Total Protein Albumin Globulin Albumin/Globulin Ratio Triglycerides Procalcitonin Adenovirus (PCR) B. pertussis DNA (PCR) B.parapertussis DNA PCR C. pneumoniae DNA (PCR) Coronavirus OC43 (PCR) Coronavirus HKU1 (PCR) Coronavirus 229E (PCR) SARS-CoV-2 (PCR) Coronavirus NL63 (PCR) Human Metapneumovir PCR Influenza Type A (PCR) Influenza Type B (PCR) M. 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
[2024-05-21] MEDS ORDERED: TPN/PPN CONSULT PHARMACY PRN (13:30)
[2024-05-21] MEDS: CIPROFLOXACIN HCL 0.3% OP SOLN 2.5 ML BTL OPB SCH (14:11)
[2024-05-21 14:24] LABS: Adenovirus PCR Not Detected (NotDetected); Bordetella parapertussis PCR Not Detected (NotDetected); Bordetella pertussis PCR Not Detected (NotDetected); Chlamydia pneumoniae PCR Not Detected (NotDetected); Coronavirus 229E PCR Not Detected (NotDetected); Coronavirus CoV-2 (COVID19)PCR Not Detected (NotDetected); Coronavirus HKU1 PCR Not Detected (NotDetected); Coronavirus NL63 PCR Not Detected (NotDetected); Coronavirus OC43PCR Not Detected (NotDetected); Human Metapneumovirus PCR Not Detected (NotDetected); Influenza A PCR Not Detected (NotDetected); Influenza B PCR Not Detected (NotDetected); Mycoplasma pneumoniae PCR Not Detected (NotDetected); Parainfluenza Virus 1 PCR Not Detected (NotDetected); Parainfluenza Virus 2 PCR Not Detected (NotDetected); Parainfluenza Virus 3 PCR Not Detected (NotDetected); Parainfluenza Virus 4 PCR Not Detected (NotDetected); Respiratory Syncytial VirusPCR Not Detected (NotDetected); Rhinovirus/Enterovirus PCR Not Detected (NotDetected)
[2024-05-21 15:05] LABS: Magnesium 2.1 mg/dl (1.7-2.4)
[2024-05-21] MEDS: ACETAMINOPHEN 1,000 MG/100 ML VIAL IV SCH (15:32)
--- NOTE | 2024-05-21 15:34 | Pharmacy Report ---
Pharmacy Initial PN Consult Nt - Date of Service May 21, 2024 - Scope Pharmacy has been consulted on this date to manage parenteral nutrition orders and order appropriate labs. As part of the Nutrition Support Team Guidelines, pharmacy will work in conjunction with dietary when determining the patients caloric needs. - Subjective * The patient is a 79 year old Male admitted on 05/10/24 for AMS, UTI. Pertinent PMHx: diabetes, metastatic penile cancer. * Patient is to receive PPN for poor nutrition (no oral intake for > 7 days) in the setting of metastatic cancer. * Total volume not to exceed 1500 mL/day per provider * Patient at risk for refeeding syndrome. Will maximize potassium, phosphate and magnesium in bag and monitor labs closely. - Objective Vascular Access: * Patient currently has a peripheral line. * Peripheral line was confirmed by IV Team to be acceptable for PPN use on 05/21/24 Height & Weight (Last Documented) Height 5 ft 6 in Weight 96.5 kg Diet Order(s) 05/10/24 Dinner Diet Intake & Ouput (24hrs) 05/20/24 05/21/24 05/22/24 06:59 06:59 06:59 Intake Total 410 / 410 750 / 750 1555 / 1555 Output Total 1301 / 1301 900 / 900 450 / 450 Balance -891 / -891 -150 / -150 1105 / 1105 Selected Laboratory Results 05/21/24 05/21/24 10:42 14:08 Sodium 143 Potassium 4.3 Chloride 106 Carbon Dioxide 30 Anion Gap 7 BUN 25 H Creatinine 1.22 Est GFR ( Amer) 65.0 Est GFR (Non-Af Amer) 56.0 BUN/Creatinine Ratio 20.5 H Glucose 100 H Calcium 9.5 Phosphorus 3.0 Magnesium 2.1 Total Bilirubin 1.4 H AST 73 H ALT [address] - Follow Up Nutrition Assessment Start: 05/11/24 13:54 Freq: Status: Active Protocol: Document 05/21/24 11:34 [id number] (Rec: 05/21/24 11:43 [id number]) RD - Initial Nutrition Assessment Start: 05/11/24 13:46 Freq: Status: Active Protocol: Document 05/11/24 13:47 [id number] (Rec: 05/11/24 13:54 [id number]) - Assessment & Plan Assessment: * Appreciate dietitians recommendations for macronutrients. Plan: * For Day #1 of PPN administration, the following will be ordered: * Macronutrients: * Amino Acids: 51 grams/day * Dextrose: 60 grams/day * Lipids: 50 grams/day * Micronutrients: * TPN electrolytes: 20 mL/day - Contains 35 mEq Na, 20 mEq K, 4.5 mEq Ca, 5 mEq Mg, 35 mEq Cl, 29.5 mEq Acetate per 20 mL * Sodium chloride: 40 mEq/day * Sodium acetate: 20 mEq/day * Potassium phosphate: 27 mMol/day * Magnesium sulfate: 8.12 mEq/day * Multivitamins: 10 mL/day * Trace elements: 1 mL/day * Folic Acid: 1 mg/day Of note, patient also ordered thiamine 500 mg IV q8h + famotidine 20 mg IV BID * Total volume of 1268.2 mL will be infused over 24 hours and will provide 908 kcal/day * Patient is on PPN which has a maximum mOsm/L of 900. Final osmolarity of current solution is 893.17 mOsm/L. * Labs will be ordered per PN protocol. * Pharmacy will follow and adjust PN orders on a daily basis. Thank you!
[2024-05-21] MEDS: [UNRECOGNIZED DRUG - OTHER] IV SCH (16:43)
[2024-05-21] MEDS: PERIPHERAL TPN IV SCH (16:43)
[2024-05-21] MEDS: CLINOLIPID 20% IV FAT EMULSION 250 ML IV SCH (16:43)
[2024-05-21] MEDS: QUEtiapine FUMARATE 25 MG TABLET PO SCH (22:06)
[2024-05-21] MEDS: METOPROLOL TARTRATE 25 MG TAB PO SCH (22:06)
[2024-05-21] MEDS: STOP CLINOLIPID SCH (22:20)
[2024-05-22 06:26] LABS: BUN Creatinine Ratio 22.9 (10-20); Calcium 9.7 mg/dl (8.6-10.3); Creatinine Clr Calc Pharmacy 55.2 ml/min; Est GFR (African American) 67.6 ml/min; Est GFR (Non-African American) 58.3 ml/min; Magnesium 2.1 mg/dl (1.7-2.4); Phosphorus 2.8 mg/dl (2.5-4.9); Potassium 4.3 mmol/L (3.5-5.1)
[2024-05-22] MEDS: DEXTROSE 10% 1,000 ML IV PRN (06:46)
--- NOTE | 2024-05-22 10:22 | Neurology Progress Note ---
Date of Service May 22, 2024 Assessment & Plan (1) Acute metabolic encephalopathy: Admission and Anticipated Discharge Date Admission Date: May 10, 2024 Subjective pt this morning sleeping comfortably. now off restrain as pt is very cooperative and not combative. no overnight event. Results & Data Vital Signs (Past 12 Hours) Vital Signs Temp Pulse Resp BP Pulse Ox O2 Del Method O2 Flow Rate 05/22/24 07:01 36.5 C 99 H 17 135/89 97 Nasal Cannula 2 05/22/24 04:00 88 97 Nasal Cannula 2 05/22/24 01:14 36.4 C L 92 H 18 133/93 96 Nasal Cannula 2 05/22/24 01:00 Nasal Cannula 2 Exam (Neuro) Physical Exam: Neuro: exam deferred. pt sleeping comfortably. per nursing report, pt took his meds and ate his breakfast this morning well and calm. following command very well. 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 Overall likely multifactorial, agree with Hem/oncology that his recent multiple infections with poor sleep and immunomed likely all contributing. It take longer for elderly pt to recover from systemic infections. no clear suggestion of BEAUTY CONSULTANT infection or lesion. less likely paraneoplastic encephalitis at this point. pt overall showing improvement. Recommendations: avoid sedative meds during day time. use seroquel only for severe agitation during daytime. for night, order standing dose of seroquel 50mg po qhs to help with sleep. do not use other benzo or other antipsychotic meds avoid anticholinergic and antidopaminergic meds continue infection tx. supportive care and good nutritional care to avoid dehydration and malnutrition. Chart reviewed total time spent: 30 min (this includes chart review). PG Care Time/CCT Total # of Minutes Spent Total Time Spent with Patient: Total time spent is greater than 50% in coordination of care (as documented) at patient's floor/unit and/or counseling patient: Coding Level of Care Code 15617 SUB INP/OBS CARE 10/16MIN Diagnoses Acute metabolic encephalopathy G93.41
--- NOTE | 2024-05-22 12:00 | Hospitalist Progress Note ---
Date of Service May 22, 2024 Assessment & Plan (1) Acute metabolic encephalopathy: Plan: ongoing - but improved today (not agitated, able to remove restraints) has been severe most of this admission despite treating all underlying precipitating factors and giving supportive care contributing factors - recent UTI, pneumonia, hypercapnia, narcotics, poor sleep/insomnia (for days), poor nutritional status & abnormal labs, low-normal B12, etc MRI brain neg for acute or subacute CVA earlier this admission repeat MRI brain w/ contrast again negative recent ammonia wnl repeat level also wnl repeat cxr with improved LLL infiltrates B12 level 330 - on replacement recent TSH wnl remains on empiric thiamine (high dose 500mg q8h) multiple BioFire respiratory panels negative asked Dr Alfaro from neurology to consult he advises LP 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; however, suspicion for such is VERY LOW unfortunately he is on anticoagulation and this will need to be held will attempt to get LP next couple of days of note --> there is a 1-2% chance of Keytruda induced encephalitis but this would be dx of exclusion PLAN: * seroquel 25mg HS scheduled + 25mg HS prn; increase as needed * AVOID ALL BENZOS/sedatives * blinds open during day/closed at night * oob to chair as much as possible during the day to stimulate him * work on nutrition * avoid unnecessary interventions that could provoke him (2) LLL pneumonia: Plan: clinically resolved completed 10+ days of IV abx (3) Ischemic cardiomyopathy: Plan: EF 45-50% compensated cont beta prashant therapy (4) Afib: Plan: cont metoprolol HOLD Eliquis due to need for LP (5) DM2 (diabetes mellitus, type 2): Plan: BSGs very well controlled in setting of severe anorexia (6) UTI (urinary tract infection): Plan: 2nd to Pantoea (Entero) agglomerans previously on ancef then switched to rocephin this is catheter-associated UTI due to SP catheter status completed 10+ days of Rx (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 confusion 2nd to Keytruda? (8) Catheter-associated urinary tract infection: Plan: as above (9) Acute on chronic respiratory failure with hypercapnia: Plan: has needed BIPAP on/off this admission when he is confused/delirious/lethargic he has tachypnea and some increased work of breathing cont BIPAP prn most recent blood gas with acceptable parameters (10) Conjunctivitis: Plan: improving cont cipro eye drops b/l QID repeat respiratory BioFire panel was negative on 05/21/24 Plan daughter extensively updated at bedside yesterday son updated briefly at bedside today fingers crossed for another good night tonight Admission and Anticipated Discharge Date Admission Date: May 10, 2024 Subjective overview of the day slept majority of last night restraints were left in place he was calm around breakfast time restraints removed ate <25% of breakfast answering basic questions thru the day was mainly awake sat in chair for about 4 hours 2 visits to bedside - this am after breakfast, and then again about 630pm during the 630pm visit his son was present at bedside patient was still out of restraints confused, but pleasant & docile; no agitation; laughing a little, answering questions took a few sips of milkshake some issues overnight with his IVs and the IVs going bad/infiltrating Review of Systems Review of Systems: denies pain in any location otherwise cannot obtain ROS due to confusion Physical Exam Physical Exam: gen - sleepy, but opens eyes briefly to his name being called (he had fallen asleep following breakfast) mouth - MM still dry eyes - crusting of eyelids with conjunctival injection b/l - improved neck - no JVD heart - irregular, regular rate, s1 s2, no murmur lungs - decreased BS bases, no adventitious sounds abd - soft NT ND BS+ ext - no edema, pulses 2+ b/l skin - SP cath site lower abdomen clean Results & Data Results & Data Vital Signs (Past 12 Hours) Vital Signs Temp Pulse Resp BP Pulse Ox O2 Del Method O2 Flow Rate 05/22/24 07:01 36.5 C 99 H 17 135/89 97 Nasal Cannula 2 05/22/24 04:00 88 97 Nasal Cannula 2 05/22/24 01:14 36.4 C L 92 H 18 133/93 96 Nasal Cannula 2 05/22/24 01:00 Nasal Cannula 2 Laboratory Results Laboratory Results - last 24 hr 05/21/24 05/21/24 05/21/24 12:56 13:24 14:08 Sodium Potassium Chloride Carbon Dioxide Anion Gap BUN Creatinine Est Cr Clr Drug Dosing Est GFR ( Amer) Est GFR (Non-Af Amer) BUN/Creatinine Ratio Glucose POC Glucose 87 Calcium Phosphorus 3.0 Magnesium 2.1 Triglycerides Adenovirus (PCR) Not Detected B. pertussis DNA (PCR) Not Detected B.parapertussis DNA PCR Not Detected C. pneumoniae DNA (PCR) Not Detected Coronavirus OC43 (PCR) Not Detected Coronavirus HKU1 (PCR) Not Detected Coronavirus 229E (PCR) Not Detected SARS-CoV-2 (PCR) Not Detected Coronavirus NL63 (PCR) Not Detected Human Metapneumovir PCR Not Detected Influenza Type A (PCR) Not Detected Influenza Type B (PCR) Not Detected M. pneumoniae (PCR) Not Detected Parainfluenza 1 (PCR) Not Detected Parainfluenza 2 (PCR) Not Detected Parainfluenza 3 (PCR) Not Detected Parainfluenza 4 (PCR) Not Detected RSV (PCR) Not Detected Entero/Rhino (PCR) Not Detected 05/21/24 05/21/24 05/22/24 17:37 22:05 05:47 Sodium 143 Potassium 4.3 Chloride 105 Carbon Dioxide 33 H Anion Gap 5 BUN 27 H Creatinine 1.18 Est Cr Clr Drug Dosing 55.2 Est GFR ( Amer) 67.6 Est GFR (Non-Af Amer) 58.3 BUN/Creatinine Ratio 22.9 H Glucose 101 H POC Glucose 87 86 Calcium 9.7 Phosphorus 2.8 Magnesium 2.1 Triglycerides 210 H Adenovirus (PCR) B. pertussis DNA (PCR) B.parapertussis DNA PCR C. pneumoniae DNA (PCR) Coronavirus OC43 (PCR) Coronavirus HKU1 (PCR) Coronavirus 229E (PCR) SARS-CoV-2 (PCR) Coronavirus NL63 (PCR) Human Metapneumovir PCR Influenza Type A (PCR) Influenza Type B (PCR) M. pneumoniae (PCR) Parainfluenza 1 (PCR) Parainfluenza 2 (PCR) Parainfluenza 3 (PCR) Parainfluenza 4 (PCR) RSV (PCR) Entero/Rhino (PCR) 05/22/24 05/22/24 07:34 11:38 Sodium Potassium Chloride Carbon Dioxide Anion Gap BUN Creatinine Est Cr Clr Drug Dosing Est GFR ( Amer) Est GFR (Non-Af Amer) BUN/Creatinine Ratio Glucose POC Glucose 98 104 H Calcium Phosphorus Magnesium Triglycerides Adenovirus (PCR) B. pertussis DNA (PCR) B.parapertussis DNA PCR C. pneumoniae DNA (PCR) Coronavirus OC43 (PCR) Coronavirus HKU1 (PCR) Coronavirus 229E (PCR) SARS-CoV-2 (PCR) Coronavirus NL63 (PCR) Human Metapneumovir PCR Influenza Type A (PCR) Influenza Type B (PCR) M. 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
[2024-05-22 13:16] LABS: INR 1.3 (0.9-1.1); Partial Thromboplastin Ratio 1.2; Partial Thromboplastin Time 31 Seconds (21-31); Prothrombin Time 13.4 Seconds (9.0-12.0)
[2024-05-22] MEDS: Heparin IV Adult Wt-Based Standard *NO* INITIAL Bolus Protocol IV STA (14:10)
[2024-05-22] MEDS: HEPARIN SODIUM/DEXTROSE 25,000 UNITS/500 ML BAG IV SCH (14:10)
[2024-05-22 15:02] LABS: Basophils # (auto) 0.03 K/uL (0.00-0.20); Basophils % (auto) 0.5 %; Eosinophils # (auto) 0.98 K/uL (0.00-0.50); Eosinophils % (auto) 14.7 %; Hematocrit (blood only) 46.9 % (42.0-52.0); Hemoglobin 14.3 g/dl (14.0-18.0); Immature Granulocytes # (auto) 0.02 K/uL (0.01-0.20); Immature Granulocytes % (auto) 0.3 %; Lymphocytes # (auto) 0.88 K/uL (1.20-3.40); Lymphocytes % (auto) 13.2 %; Mean Corpuscular Hemoglobin 29.5 pg (25.0-34.0); Mean Corpuscular Hgb Conc 30.5 g/dL (32.0-36.0); Mean Corpuscular Volume 96.7 fL (80.0-100.0); Mean Platelet Volume 10.6 fL (9.4-12.4); Monocytes # (auto) 1.08 K/uL (0.11-0.59); Monocytes % (auto) 16.2 %; Neutrophils # (auto) 3.66 K/uL (1.40-6.50); Neutrophils % (auto) 55.1 %; Platelet Count 142 K/uL (130-400); RDW Coefficient of Variation 14.5 % (11.5-14.5); RDW Standard Deviation 52.1 fL (36.4-46.3); Red Blood Count 4.85 M/uL (4.70-6.10); White Blood Count 6.65 K/ul (4.8-10.8)
[2024-05-22] MEDS: [UNRECOGNIZED DRUG - OTHER] IV SCH (16:15)
[2024-05-22] MEDS: PERIPHERAL TPN IV SCH (16:15)
[2024-05-22] MEDS: CLINOLIPID 20% IV FAT EMULSION 250 ML IV SCH (16:16)
[2024-05-22] MEDS: QUEtiapine FUMARATE 25 MG TABLET PO PRN (21:05)
[2024-05-22] MEDS: QUEtiapine FUMARATE 25 MG TABLET PO SCH (21:05)
[2024-05-22 22:11] LABS: ANTI-Xa, UFH(UnfractionatedHep 0.69 IU/ml (0.3-0.7)
[2024-05-22 22:46] LABS: Basophils # (auto) 0.03 K/uL (0.00-0.20); Basophils % (auto) 0.4 %; Eosinophils # (auto) 1.21 K/uL (0.00-0.50); Eosinophils % (auto) 16.4 %; Hematocrit (blood only) 47.7 % (42.0-52.0); Hemoglobin 14.8 g/dl (14.0-18.0); Immature Granulocytes # (auto) 0.02 K/uL (0.01-0.20); Immature Granulocytes % (auto) 0.3 %; Lymphocytes # (auto) 1.13 K/uL (1.20-3.40); Lymphocytes % (auto) 15.3 %; Mean Corpuscular Hemoglobin 29.6 pg (25.0-34.0); Mean Corpuscular Volume 95.4 fL (80.0-100.0); Mean Platelet Volume 10.3 fL (9.4-12.4); Monocytes # (auto) 1.03 K/uL (0.11-0.59); Neutrophils # (auto) 3.96 K/uL (1.40-6.50); Neutrophils % (auto) 53.6 %; Platelet Count 151 K/uL (130-400); RDW Coefficient of Variation 14.5 % (11.5-14.5); RDW Standard Deviation 51.4 fL (36.4-46.3); White Blood Count 7.38 K/ul (4.8-10.8)
[2024-05-22 23:01] LABS: Albumin Globulin Ratio 0.9 (0.9-2); Albumin Level 3.5 gm/dl (3.4-5.0); BUN Creatinine Ratio 21.8 (10-20); Bilirubin,Total 1.5 mg/dl (0.2-1.0); Creatinine Clr Calc Pharmacy 52.5 ml/min; Est GFR (African American) 63.7 ml/min; Est GFR (Non-African American) 54.9 ml/min; Globulin 3.7 gm/dl (2.5-4.0); Potassium 4.6 mmol/L (3.5-5.1); Total Protein 7.2 gm/dl (6.0-8.3)
[2024-05-22 23:37] LABS: Appearance Urine Turbid (Clear); Bacteria Urine Automated None Seen (None Seen); Bilirubin Urine 1+ (Negative); Blood Urine 1+ (Negative); Calcium Oxalate Crystals Urine Present (None Prsent); Color Urine Dark Yellow; Epithelial Cell Urine Auto 0-2 /hpf (0-2); Glucose Urine UA Negative (Negative); Granular Casts Urine Present /lpf (None Prsent); Hyaline Casts Urine Present /lpf (None Presnt); Ketones Urine Trace (Negative); Leukocyte Esterase Urine Trace (Negative); Nitrite Urine Negative (Negative); Protein Urine 2+ (Negative); Specific Gravity Urine 1.021 (1.000-1.030); Urobilinogen Urine Positive (Negative); WBC Urine Automated 0-5 /hpf (0-5); pH Urine 5.5 (4.5-7.5)
--- NOTE | 2024-05-23 01:08 | CT Scan Report ---
Exam(s): CT HEAD Without Contrast EXAM: CT Head Without Intravenous Contrast CLINICAL HISTORY: change in AMS. TECHNIQUE: Axial computed tomography images of the head/brain without intravenous contrast. CTDI is 38.74 mGy and DLP is 624.41 mGy-cm. Automated exposure control was utilized for the study. A dose lowering technique was utilized adhering to the principles of ALARA. COMPARISON: MRI brain 05/20/2024. FINDINGS: Study is limited by patient motion. Brain: Age-appropriate generalized atrophy. No acute stroke. Mild supratentorial periventricular and subcortical white matter changes. No acute hemorrhage or abnormal extra-axial fluid collection. Ventricles: No hydrocephalus. No midline shift. Bones/joints: Unremarkable. No acute fracture. Soft tissues: Unremarkable. Sinuses: Unremarkable as visualized. No acute sinusitis. IMPRESSION: No acute abnormality. Electronically signed by: Tyler Medina M.D. 05/23/24 01:06 AM
--- NOTE | 2024-05-23 04:10 | Communication Note ---
Date of Service: May 22, 2024 Called to bedside by nursing due to changes in mental status. Patient was sitting staff as this is normally what he does close tonight due to sundowning. They stated that after he was trying to fight the staff he started to become lethargic and had some altered mental status. Patient does have baseline dementia and waxes and wanes chronically. Assessed patient bedside. He is able to tell me his name but nothing else. He is very lethargic on exam. He is not following many commands. On able to fully establish what his baseline is though with talking to the nursing it is clear that he is below his baseline at this time. No complaints of pain. Eyes reactive. CT head without contrast negative. No acute changes seen on CMP, CBC, or magnesium. UA collected which showed similar findings of the urine collected on 05/14. Will follow-up on treatment at this time and defer to the treating.
[2024-05-23 06:43] LABS: BUN Creatinine Ratio 23.6 (10-20); Calcium 9.7 mg/dl (8.6-10.3); Creatinine Clr Calc Pharmacy 59.2 ml/min; Est GFR (African American) 73.6 ml/min; Est GFR (Non-African American) 63.5 ml/min; Phosphorus 2.3 mg/dl (2.5-4.9)
--- NOTE | 2024-05-23 09:35 | Neurology Progress Note ---
Date of Service May 23, 2024 Assessment & Plan (1) Acute metabolic encephalopathy: Admission and Anticipated Discharge Date Admission Date: May 10, 2024 Subjective pt drowsy this morning but easily awaken. he was able to eat few bites of soft diet with assistance from ETCHER MACHINE. pt not combative but he again had confusion and trying to get out of bed last night so he is back to restraint. Results & Data Vital Signs (Past 12 Hours) Vital Signs Temp Pulse Resp BP BP Pulse Ox O2 Del Method 05/23/24 07:20 36.6 C 94 H 32 H 143/86 H 96 Nasal Cannula 05/23/24 04:10 95 Nasal Cannula 05/23/24 03:57 87 L Room Air 05/22/24 23:00 Nasal Cannula 05/22/24 22:15 92 H 124/75 95 Nasal Cannula 05/22/24 21:55 36.4 C L 05/22/24 21:50 101 H 14 150/93 H 96 Nasal Cannula O2 Flow Rate 05/23/24 07:20 2 05/23/24 04:10 2 05/23/24 03:57 05/22/24 23:00 2 05/22/24 22:15 2 05/22/24 21:55 05/22/24 21:50 2 Exam (Neuro) Physical Exam: Neuro: Mental: Drowsy, able to show me left and rt thumbs up, follows simple commands. makes simple speech but dysarthric , CN: PERRL, Full EOM grossly., symmetric face, Motor: No abnormal movements, normal tone, moves all limbs spontaneously. Coord:deferred. Gait: deferred. 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 Overall likely multifactorial, agree with Hem/oncology that his recent multiple infections with poor sleep and immunomed likely all contributing. It take longer for elderly pt to recover from systemic infections. no clear suggestion of BELL CLERK infection or lesion. less likely paraneoplastic encephalitis at this point. Pt still having fluctuating sundowning. Recommendations: avoid sedative meds during day time. do not use other benzo or other antipsychotic meds avoid anticholinergic and antidopaminergic meds continue infection tx and monitoring. continue supportive and nutritional care. recommendations as before about the LP when possible. Chart reviewed I have spent more than 50% educating patient about potential diagnosis and neurological evaluation and coordinating care with patient's treatment team. Total time spent (including chart review and coordination of care): 35 min (this includes chart review). PG Care Time/CCT Total # of Minutes Spent Total Time Spent with Patient: Total time spent is greater than 50% in coordination of care (as documented) at patient's floor/unit and/or counseling patient: Coding Level of Care Code 58103 SUB INP/OBS CARE 2/35MIN Diagnoses Acute metabolic encephalopathy G93.41
--- NOTE | 2024-05-23 10:50 | Hospitalist Progress Note ---
Date of Service May 23, 2024 Assessment & Plan (1) Acute metabolic encephalopathy: Plan: ongoing has been severe most of this admission despite treating all underlying precipitating factors and giving supportive care contributing factors - recent UTI, pneumonia, hypercapnia, narcotics, poor sleep/insomnia (for days), poor nutritional status & abnormal labs, low-normal B12, etc MRI brain neg for acute or subacute CVA earlier this admission repeat MRI brain w/ contrast negative for acute findings recent ammonia wnl repeat level also wnl repeat cxr with improved LLL infiltrates B12 level 330 - on replacement recent TSH wnl remains on empiric thiamine multiple BioFire respiratory panels negative asked Dr Alfaro from neurology to consult he 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; however, suspicion for such is VERY LOW unfortunately he is on anticoagulation and this will need to be held will attempt to get LP next couple of days of note --> there is a 1-2% chance of Keytruda induced encephalitis but this would be dx of exclusion PLAN: * AVOID ALL BENZOS/sedatives * blinds open during day/closed at night * oob to chair as much as possible during the day to stimulate him (when safe to do so) * PPN * avoid unnecessary interventions that could provoke him * restraints ONLY when necessary to protect his safety and safety of others * stop seroquel * start melatonin 3mg HS * start abilify 2.5mg HS scheduled + abilify 2.5mg HS PRN (I discussed his case with Dr Molina from psychiatry - we stopped seroquel due to the severe excess sedation and lack of efficacy) * recheck VBG - ensure no hypercapnia * KUB x-ray - rule out impaction which can cause delirium (2) LLL pneumonia: Plan: resolved completed 10+ days of IV abx (3) Ischemic cardiomyopathy: Plan: EF 45-50% compensated cont beta prashant therapy (4) Afib: Plan: cont metoprolol HOLD Eliquis due to need for LP was attempting to use heparin drip in josselin of Eliquis but had gross hematuria overnight; now on hold (5) DM2 (diabetes mellitus, type 2): Plan: BSGs very well controlled in setting of severe anorexia (6) UTI (urinary tract infection): Plan: 2nd to Pantoea (Entero) agglomerans previously on ancef then switched to rocephin this is catheter-associated UTI due to SP catheter status completed 10+ days of Rx (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 confusion 2nd to Keytruda? (8) Catheter-associated urinary tract infection: Plan: as above (9) Acute on chronic respiratory failure with hypercapnia: Plan: has needed BIPAP on/off this admission when he is confused/delirious/lethargic he has tachypnea and some increased work of breathing cont BIPAP prn most recent blood gas with acceptable parameters recheck another VBG today (10) Conjunctivitis: Plan: improving cont cipro eye drops b/l QID repeat respiratory BioFire panel was negative on 05/21/24 (11) Hematuria: Plan: suspect catheter trauma in the setting of systemic anticoagulation (heparin drip) leading to the gross hematuria heparin drip now on hold H/H stable allow urine to clear (12) Failure to thrive: Plan: has not eaten consistently in 10+ days thus, cont PPN appreciate pharmacy assistance with this (13) History of pulmonary embolism: Plan: is at high risk of VTE given his immobility and his stage 4 penile cancer Eliquis is on hold due to need for LP but he had bleeding (hematuria) on heparin drip - which is now on hold if unable to do heparin infusion at least would use heparin or lovenox SC for DVT prevention Plan daughter extensively updated at bedside again today son updated briefly at bedside yesterday gave his daughter a handout on delirium questions answered Admission and Anticipated Discharge Date Admission Date: May 10, 2024 Subjective events of overnight reviewed --> had severe agitation/delirium/ing requiring use of restraints due to agitation, kicking at staff, pulling at O2 & SP catheter, etc received total of 50mg of seroquel at HS CT head was taken --> negative developed acute gross hematuria last pm and thus heparin placed on hold (and anti-[id number] level was high) this am took little to nothing at breakfast did not take anything at lunch has been sleeping all day will open his eyes for a few seconds when his name is called speech nearly impossible to understand daughter at bedside during the visit Review of Systems Review of Systems: Unobtainable due to cognitive status Physical Exam Physical Exam: gen - sleeping/lethargic, opened his eyes for 1-2 seconds the entire visit, unable to answer questions or arouse; no distress; snoring eyes - crusting of eyelids with conjunctival injection b/l - improved/resolving neck - no JVD heart - irregular, regular rate, s1 s2, no murmur lungs - decreased BS bases, no adventitious sounds ; snoring abd - soft NT ND BS+; SP catheter present - insertion site clean; olmedo bag - maroon-colored urine; no clots ext - no edema, pulses 2+ b/l musculo - arms in restraints; he does squeeze both hands to command Results & Data Results & Data Vital Signs (Past 12 Hours) Vital Signs Temp Pulse Resp BP Pulse Ox O2 Del Method O2 Flow Rate 05/23/24 07:20 36.6 C 94 H 32 H 143/86 H 96 Nasal Cannula 2 05/23/24 04:10 95 Nasal Cannula 2 05/23/24 03:57 87 L Room Air 05/22/24 23:00 Nasal Cannula 2 Laboratory Results Laboratory Results - last 24 hr 05/22/24 05/22/24 05/22/24 11:38 12:34 16:35 WBC 6.65 RBC 4.85 Hgb 14.3 Hct 46.9 MCV 96.7 MCH 29.5 MCHC 30.5 L RDW Std Deviation 52.1 H RDW Coeff of Manuel 14.5 Plt Count 142 MPV 10.6 Immature Gran % (Auto) 0.3 Neut % (Auto) 55.1 Lymph % (Auto) 13.2 Swift % (Auto) 16.2 Eos % (Auto) 14.7 Baso % (Auto) 0.5 Neut # (Auto) 3.66 Lymph # (Auto) 0.88 L Swift # (Auto) 1.08 H Eos # (Auto) 0.98 H Baso # (Auto) 0.03 Immature Gran # (Auto) 0.02 PT 13.4 H INR 1.3 H APTT 31 PTT Ratio 1.2 Heparin Anti-Xa, Unfract Sodium Potassium Chloride Carbon Dioxide Anion Gap BUN Creatinine Est Cr Clr Drug Dosing Est GFR ( Amer) Est GFR (Non-Af Amer) BUN/Creatinine Ratio Glucose POC Glucose 104 H 117 H Calcium Phosphorus Magnesium Total Bilirubin AST ALT Alkaline Phosphatase Total Protein Albumin Globulin Albumin/Globulin Ratio Urine Color Urine Appearance Urine pH Ur Specific [place] Urine Protein Urine Glucose (UA) Urine Ketones Urine Blood Urine Nitrite Urine Bilirubin Urine Urobilinogen Ur Leukocyte Esterase Urine WBC (Auto) Urine RBC (Auto) U Hyaline Cast (Auto) U Epithel Cells (Auto) Urine Bacteria (Auto) Calcium Oxalate Crystal Hyaline Casts Granular Casts 05/22/24 05/22/24 05/22/24 20:45 21:14 22:21 WBC 7.38 RBC 5.00 Hgb 14.8 Hct 47.7 MCV 95.4 MCH 29.6 MCHC 31.0 L RDW Std Deviation 51.4 H RDW Coeff of Manuel 14.5 Plt Count 151 MPV 10.3 Immature Gran % (Auto) 0.3 Neut % (Auto) 53.6 Lymph % (Auto) 15.3 Swift % (Auto) 14.0 Eos % (Auto) 16.4 Baso % (Auto) 0.4 Neut # (Auto) 3.96 Lymph # (Auto) 1.13 L Swift # (Auto) 1.03 H Eos # (Auto) 1.21 H Baso # (Auto) 0.03 Immature Gran # (Auto) 0.02 PT INR APTT PTT Ratio Heparin Anti-Xa, Unfract 0.69 Sodium 141 Potassium 4.6 Chloride 103 Carbon Dioxide 33 H Anion Gap 5 BUN 27 H Creatinine 1.24 Est Cr Clr Drug Dosing 52.5 Est GFR ( Amer) 63.7 Est GFR (Non-Af Amer) 54.9 BUN/Creatinine Ratio 21.8 H Glucose 111 H POC Glucose 132 H Calcium 10.0 Phosphorus Magnesium 2.0 Total Bilirubin 1.5 H AST 66 H ALT 34 Alkaline Phosphatase 55 Total Protein 7.2 Albumin 3.5 Globulin 3.7 Albumin/Globulin Ratio 0.9 Urine Color Urine Appearance Urine pH Ur Specific [place] Urine Protein Urine Glucose (UA) Urine Ketones Urine Blood Urine Nitrite Urine Bilirubin Urine Urobilinogen Ur Leukocyte Esterase Urine WBC (Auto) Urine RBC (Auto) U Hyaline Cast (Auto) U Epithel Cells (Auto) Urine Bacteria (Auto) Calcium Oxalate Crystal Hyaline Casts Granular Casts 05/22/24 05/23/24 05/23/24 22:52 05:33 07:52 WBC RBC Hgb Hct MCV MCH MCHC RDW Std Deviation RDW Coeff of Manuel Plt Count MPV Immature Gran % (Auto) Neut % (Auto) Lymph % (Auto) Swift % (Auto) Eos % (Auto) Baso % (Auto) Neut # (Auto) Lymph # (Auto) Swift # (Auto) Eos # (Auto) Baso # (Auto) Immature Gran # (Auto) PT INR APTT PTT Ratio Heparin Anti-Xa, Unfract 0.80 H* Sodium 141 Potassium 4.0 Chloride 103 Carbon Dioxide 33 H Anion Gap 5 BUN 26 H Creatinine 1.10 Est Cr Clr Drug Dosing 59.2 Est GFR ( Amer) 73.6 Est GFR (Non-Af Amer) 63.5 BUN/Creatinine Ratio 23.6 H Glucose 121 H POC Glucose 110 H Calcium 9.7 Phosphorus 2.3 L Magnesium 2.0 Total Bilirubin AST ALT Alkaline Phosphatase Total Protein Albumin Globulin Albumin/Globulin Ratio Urine Color Dark Yellow Urine Appearance Turbid A Urine pH 5.5 Ur Specific [place] 1.021 Urine Protein 2+ H Urine Glucose (UA) Negative Urine Ketones Trace H Urine Blood 1+ H Urine Nitrite Negative Urine Bilirubin 1+ H Urine Urobilinogen Positive H Ur Leukocyte Esterase Trace H Urine WBC (Auto) 0-5 Urine RBC (Auto) 3-5 H U Hyaline Cast (Auto) 11-20 H U Epithel Cells (Auto) 0-2 Urine Bacteria (Auto) None Seen Calcium Oxalate Crystal Present A Hyaline Casts Present A Granular Casts Present A PG Care Time/CCT Total # of Minutes Spent Total Time Spent with Patient: Total time spent is greater than 50% in coordination of care (as documented) at patient's floor/unit and/or counseling patient: Coding Level of Care Code 64640 SUB INP/OBS CARE 3/50MIN Diagnoses Acute metabolic encephalopathy G93.41 LLL pneumonia J18.9 Ischemic cardiomyopathy I25.5 Afib I48.91 DM2 (diabetes mellitus, type 2) E11.9 UTI (urinary tract infection) N39.0 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
[2024-05-23] MEDS: ACETAMINOPHEN 500 MG TAB PO PRN (13:01)
[2024-05-23 15:37] LABS: Base Excess VBG 10.4 mEq/L; HCO3 VBG 37 mmol/L; Oxygen Saturation VBG 82.4 %; PCO2 VBG 59 mmHg (38-50); PO2 VBG 49 mmHg; pH VBG 7.41 (7.36-7.41)
--- NOTE | 2024-05-23 16:02 | XRay Report ---
[facility] CLINICAL HISTORY: confusion, constipation; impaction?? COMPARISON STUDY: CT of the abdomen and pelvis May 14, 2024. FINDINGS: A Ulloa is in place. The bowel gas pattern is normal. The amount of stool is within normal limits. IMPRESSION: 1. No evidence for a bowel obstruction. 2. Amount of stool within normal limits. ACT 112: Negative or not required by law. Electronically signed by: Terrence Giraldo M.D. 05/23/2024 4:00 PM
[2024-05-23] MEDS: [UNRECOGNIZED DRUG - OTHER] IV SCH (16:29)
[2024-05-23] MEDS: PERIPHERAL TPN IV SCH (16:29)
[2024-05-23] MEDS: CLINOLIPID 20% IV FAT EMULSION 250 ML IV SCH (16:41)
[2024-05-23] MEDS ORDERED: QUEtiapine FUMARATE 25 MG TABLET PO SCH (21:00)
[2024-05-23] MEDS: THIAMINE HCL 200 MG in SODIUM CHLORIDE 0.9% 50 ML IV SCH (23:34)
[2024-05-23] MEDS: ARIPiprazole 5 MG TAB PO SCH (23:38)
[2024-05-23] MEDS: MELATONIN 3 MG TAB PO SCH (23:39)
[2024-05-24 06:11] LABS: Basophils # (auto) 0.01 K/uL (0.00-0.20); Basophils % (auto) 0.2 %; Eosinophils # (auto) 1.17 K/uL (0.00-0.50); Eosinophils % (auto) 17.7 %; Hematocrit (blood only) 47.2 % (42.0-52.0); Hemoglobin 14.9 g/dl (14.0-18.0); Immature Granulocytes # (auto) 0.04 K/uL (0.01-0.20); Immature Granulocytes % (auto) 0.6 %; Lymphocytes # (auto) 0.96 K/uL (1.20-3.40); Lymphocytes % (auto) 14.5 %; Mean Corpuscular Hgb Conc 31.6 g/dL (32.0-36.0); Mean Platelet Volume 10.6 fL (9.4-12.4); Monocytes # (auto) 0.73 K/uL (0.11-0.59); Platelet Count 128 K/uL (130-400); RDW Coefficient of Variation 14.6 % (11.5-14.5); RDW Standard Deviation 50.8 fL (36.4-46.3); Red Blood Count 4.97 M/uL (4.70-6.10); White Blood Count 6.61 K/ul (4.8-10.8)
[2024-05-24 06:29] LABS: BUN Creatinine Ratio 26.3 (10-20); Calcium 9.6 mg/dl (8.6-10.3); Creatinine Clr Calc Pharmacy 68.6 ml/min; Est GFR (African American) 87.9 ml/min; Est GFR (Non-African American) 75.8 ml/min; Magnesium 1.9 mg/dl (1.7-2.4); Phosphorus 3.3 mg/dl (2.5-4.9); Potassium 4.4 mmol/L (3.5-5.1)
[2024-05-24] MEDS: ARIPiprazole 5 MG TAB PO SCH ×2 (09:38→22:12)
--- NOTE | 2024-05-24 12:25 | Psychiatric Progress Note ---
Date of Service May 24, 2024 Impression / Recommendations Impression 79-year-old man h/o malignant penile cancer on chemotherapy following with palliative care who presents with AMS. Psychiatry consulted for medication recommendations for delirium/agitation. Diagnostically consistent with delirium. Unfortunately there are no known medications to cure or shorten the duration of delirium; rather antipsychotics are used at times to help with sleep/appe tite/psychomotor agitation and hallucinations if these symptoms are causing significant distress and/or interfering with acute safety. Duration of delirium varies broadly with persistent delirium (defined as lasting for weeks or months) occurring frequently with [id number]% of patients exhibiting some symptoms of delirium at 6 months after symptom onset, see:Uday Paet., Ra Gutierrez., Pari Gr.et al.Delirium.Moira Rev Dis Primers6, 90 (2020). [email or web address]. Ongoing delirium and has been requiring IM medication and limited benefit from scheduled Seroquel with periods of excessive sedation. Discussed with Dr. Peña, recommend discontinuing Seroquel due to increased sedation and sleep wake cycle alteration. Instead consider melatonin and use of abilify scheduled and prn as this tends to be less likely to cause sedation. Overall, I spent a total of 35 minutes with this case including review of chart records, review of labwork, review of EKG QTc, direct evaluation of the patient at bedside, discussion of the patient with the hospitalist provider, discussion with the psychiatric liason during clinical rounds, review of collateral historian information from the family and documentation in the electronic health record. (1) Delirium due to multiple etiologies, persistent, hyperactive: (2) Cancer related pain: (3) UTI (urinary tract infection): (4) Acute kidney injury superimposed on stage 3b chronic kidney disease: Plan -Discontinue Seroquel -Trial abilify 2.5mg HS and additional 2.5mg HS prn for agitation -For behavioral emergency would use: olanzapine 2.5 mg IM x 1 (DO NOT exceed 10mg per 24 hours, check EKG if IM dose required, NEVER co-administer with IM or IV benzodiazepines). 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 Psychiatry consulted for delirium/agitation medication recommendations. Chief Complaint mumbling Subjective Subjective Patient was seen & assessed and interval progress reviewed. Ongoing delirium with periods of sedation and restlessness/agitation. At times pulling at lines. Often sleeping during the day and awake at night. Last evening declined po medications due to sedation but slept overnight without any behavioral events. Today he is joined at bedside by his daughter. She notes everyday has been unpredictable and a "roller coaster". Today she feels Jn is more calm but still confused and difficult to understand. prior to hospitalization he had been largely independent with many of his day to day tasks and kept track of appointments and managed his own finances. Physical Exam Vital Signs (Past 24 Hours) Last Vital Signs Temp 36.5 C 05/24/24 06:57 Pulse 107 H 05/24/24 06:57 Resp 22 05/24/24 06:57 BP 137/89 05/24/24 06:57 Pulse Ox 95 05/24/24 06:57 O2 Del Method Nasal Cannula 05/24/24 09:40 O2 Flow Rate 2 05/24/24 09:40 FiO2 30 05/20/24 03:57 Results & Data ([facility]) Laboratory Results Laboratory Results - last 24 hr 05/23/24 05/23/24 05/23/24 15:22 16:34 19:48 WBC RBC Hgb Hct MCV MCH MCHC RDW Std Deviation RDW Coeff of Manuel Plt Count MPV Immature Gran % (Auto) Neut % (Auto) Lymph % (Auto) [place] % (Auto) Eos % (Auto) Baso % (Auto) Neut # (Auto) Lymph # (Auto) [place] # (Auto) Eos # (Auto) Baso # (Auto) Immature Gran # (Auto) VBG pH 7.41 VBG pCO2 59 H VBG pO2 49 VBG HCO3 37 VBG O2 Saturation 82.4 VBG Base Excess 10.4 Sodium Potassium Chloride Carbon Dioxide Anion Gap BUN Creatinine Est Cr Clr Drug Dosing Est GFR ( Amer) Est GFR (Non-Af Amer) BUN/Creatinine Ratio Glucose POC Glucose 105 H 111 H Calcium Phosphorus Magnesium 05/24/24 05/24/24 05/24/24 05:33 07:51 11:28 WBC 6.61 RBC 4.97 Hgb 14.9 Hct 47.2 MCV 95.0 MCH 30.0 MCHC 31.6 L RDW Std Deviation 50.8 H RDW Coeff of Manuel 14.6 H Plt Count 128 L MPV 10.6 Immature Gran % (Auto) 0.6 Neut % (Auto) 56.0 Lymph % (Auto) 14.5 [place] % (Auto) 11.0 Eos % (Auto) 17.7 Baso % (Auto) 0.2 Neut # (Auto) 3.70 Lymph # (Auto) 0.96 L [place] # (Auto) 0.73 H Eos # (Auto) 1.17 H Baso # (Auto) 0.01 Immature Gran # (Auto) 0.04 VBG pH VBG pCO2 VBG pO2 VBG HCO3 VBG O2 Saturation VBG Base Excess Sodium 139 Potassium 4.4 Chloride 102 Carbon Dioxide 32 Anion Gap 5 BUN 25 H Creatinine 0.95 Est Cr Clr Drug Dosing 68.6 Est GFR ( Amer) 87.9 Est GFR (Non-Af Amer) 75.8 BUN/Creatinine Ratio 26.3 H Glucose 114 H POC Glucose 96 105 H Calcium 9.6 Phosphorus 3.3 D Magnesium 1.9 Current Inpatient Medications Current Inpatient Medications: Current Inpatient Medications Acetaminophen (Acetaminophen 500 Mg Tab) 1,000 mg PO Q8H PRN PRN Reason: Pain Stop: 06/22/24 10:48 Last Admin: 05/23/24 13:01 Dose: 1,000 mg Apixaban (Apixaban 5 Mg Tablet) 5 mg PO BID [facility] Stop: 06/11/24 08:59 Last Admin: 05/21/24 09:42 Dose: Not Given Aripiprazole (Aripiprazole 5 Mg Tab) 2.5 mg PO HS PRN PRN Reason: refractory agitation/delirium Stop: 06/22/24 20:59 Aripiprazole (Aripiprazole 5 Mg Tab) [facility] [place] Stop: 06/23/24 08:59 Last Admin: 05/24/24 09:38 Dose: Not Given Aspirin (Aspirin 81 Mg Ectab) 81 mg PO QAM [facility] Stop: 06/10/24 08:59 Last Admin: 05/24/24 09:38 Dose: Not Given Ciprofloxacin (Ciprofloxacin Hcl 0.3% Op Soln 2.5 Ml Btl) 1 drops OPB QID [facility] Stop: 05/31/24 12:59 Last Admin: 05/24/24 09:39 Dose: 1 drops Cyanocobalamin (Cyanocobalamin (B-12) 500 Mcg Tablet) 1,000 mcg PO QAM [facility] Stop: 06/12/24 08:59 Last Admin: 05/24/24 09:38 Dose: Not Given Dextrose (Dextrose 50% 50 Ml Syringe) 25 - 50 ml IV UD PRN; Protocol PRN Reason: Hypoglycemia Protocol Stop: 06/09/24 15:48 Emollient Ointment (Petrolatum 16 Oz Jar) 1 oz EXT UD PRN PRN Reason: catheter area Stop: 06/09/24 20:18 Glucagon (Glucagon For Inj 1 Mg Vial) 1 mg SQ UD PRN; Protocol PRN Reason: Hypoglycemia Protocol Stop: 06/09/24 15:48 Glucose (Glucose 40% Gel 15 Gm Tube) 15 - 30 gm PO UD PRN; Protocol PRN Reason: Hypoglycemia Protocol Stop: 06/09/24 15:48 Glucose (Glucose 10 Tab/Tube) 4 - 8 tab PO UD PRN; Protocol PRN Reason: Hypoglycemia Treatment Stop: 06/09/24 15:48 Famotidine (Pepcid 20mg Iv Push) 20 mg in 5 mls @ 2.5 mls/min IV Q12H [facility] Stop: 06/11/24 18:59 Last Admin: 05/24/24 06:38 Dose: 2.5 mls/min Dextrose (D10w) 1,000 mls @ 0 mls/hr IV .Q0M PRN PRN Reason: protocol (see label comments) Stop: 06/20/24 14:22 Last Infusion: 05/22/24 10:56 Dose: 0 mls/hr Heparin Sodium/Dextrose (Heparin Sodium/Dextrose) 25,000 units in 500 mls @ 0 mls/hr IV .Q0M BERENICE; Protocol Stop: 06/21/24 12:14 Last Admin: 05/23/24 08:12 Dose: Not Given Thiamine HCl 200 mg/ Sodium (Chloride) 52 mls @ 210 mls/hr IV BID [facility] Stop: 06/22/24 20:59 Last Infusion: 05/24/24 11:05 Dose: Infused Amino Acids 1,275.2 ml/ (Nutrition (Parenteral)) 1,275.2 mls @ 53.13 mls/hr IV .Q24H [facility]; Protocol Stop: 05/24/24 15:59 Last Admin: 05/23/24 16:29 Dose: 53.1 mls/hr Fat Emulsion-B[place] Oil/Soybean Oil (Clinolipid 20% Iv Fat Emulsion) 250 mls @ 41.667 mls/hr IV .Q6H [facility] Stop: 05/24/24 21:59 Amino Acids 1,272.2 ml/ (Nutrition (Parenteral)) 1,272.2 mls @ 53 mls/hr IV .Q24H [facility]; Protocol Stop: 05/25/24 15:59 Insulin Aspart (Insulin Aspart Per Unit Charge) 0 units SC ACHS [facility] Stop: 06/09/24 16:29 Last Admin: 05/24/24 11:41 Dose: Not Given Lidocaine (Lidocaine 5% Oint 30 Gm Tube) 1 appln TOP TID PRN PRN Reason: pain Stop: 06/09/24 18:44 Last Admin: 05/22/24 17:20 Dose: 1 appln Melatonin (Melatonin 3 Mg Tab) 3 mg PO HS [facility] Stop: 06/22/24 20:59 Last Admin: 05/23/24 23:39 Dose: Not Given Metoprolol Succinate (Metoprolol Succ 50mg Ext Rel Tab) 100 mg PO QAM [facility] Stop: 06/10/24 08:59 Last Admin: 05/20/24 07:16 Dose: Not Given Metoprolol Tartrate (Metoprolol Tartrate 25 Mg Tab) 25 mg PO BID [facility] Stop: 06/20/24 20:59 Last Admin: 05/24/24 09:38 Dose: Not Given Miscellaneous (Carbohydrates For Hypoglycemia ) 15 - 30 gm PO UD PRN PRN Reason: Hypoglycemia Protocol Stop: 06/09/24 15:48 Miscellaneous (Stop Clinolipid) 1 each N/A DAILY@2200 [facility] Stop: 06/20/24 21:59 Last Admin: 05/23/24 23:39 Dose: 1 each Miscellaneous Information (Tpn/Ppn Consult Pharmacy) 1 each N/A UD PRN PRN Reason: Consult Stop: 06/20/24 13:29 Ondansetron HCl (Ondansetron Inj 2 Mg/Ml 2 Ml Vial) 4 mg IV Q6H PRN PRN Reason: Nausea And Vomiting Stop: 06/10/24 14:11 Last Admin: 05/11/24 14:23 Dose: 4 mg Polyethylene Glycol (Polyethylene (Miralax) 17 Gm Pack) 17 gm PO QAM [facility] Stop: 06/10/24 08:59 Last Admin: 05/24/24 09:39 Dose: Not Given Sodium Chloride (Sodium Chloride 0.65% Na Soln 45 Ml ([place])) 2 sprays NA Q4 PRN PRN Reason: Dryness Stop: 06/09/24 23:18 Last Admin: 05/11/24 06:20 Dose: 2 sprays
[2024-05-24] MEDS: [UNRECOGNIZED DRUG - OTHER] IV SCH (16:02)
[2024-05-24] MEDS: PERIPHERAL TPN IV SCH (16:02)
[2024-05-24] MEDS: CLINOLIPID 20% IV FAT EMULSION 250 ML IV SCH (16:07)
--- NOTE | 2024-05-24 19:05 | Hospitalist Progress Note ---
Date of Service May 24, 2024 Assessment & Plan (1) Acute metabolic encephalopathy: Plan: ongoing has been severe most of this admission despite treating all underlying precipitating factors and giving supportive care contributing factors - recent UTI, pneumonia, hypercapnia, narcotics, poor sleep/insomnia/reversal of day-night cycle (for NUMEROUS days), poor nutritional status & abnormal labs, low-normal B12, etc MRI brain neg for acute or subacute CVA earlier this admission repeat MRI brain w/ contrast negative for acute findings multiple ammonia levels wnl repeat cxr with improved LLL infiltrates KUB x-ray without fecal impaction ongoing eosinophilia - etiology uncertain, significance uncertain B12 level 330 - on replacement (when able to take PO) recent TSH wnl remains on empiric thiamine 200mg BID multiple BioFire respiratory panels negative asked Dr Alfaro from neurology to consult he advises LP to r/o infectious causes of the [employer] contributing to his delirium; however, suspicion for such is VERY LOW he has been on/off various forms of anticoagulation - Eliquis, lovenox SC, heparin drip all chemical means ON HOLD of note --> there is a 1-2% chance of Keytruda induced encephalitis but this would be dx of exclusion PLAN: * AVOID ALL BENZOS/sedatives * blinds open during day/closed at night * oob to chair as much as possible during the day to stimulate him (when awake enough & safe to do so) * PPN for nutrition; no real PO intake in 7-10+ days * avoid unnecessary interventions that could provoke him * restraints ONLY when necessary to protect his safety and safety of others * stopped seroquel - much too sedating for him * melatonin 3mg HS * abilify 2.5mg HS scheduled + abilify 2.5mg HS PRN * LP with IR (Demetrio MEYER) - ordered for 05/25/24; daughter will need to give consent; patient too altered to give own consent * recheck VBG in am tomorrow to ensure pCO2 remains acceptable (2) LLL pneumonia: Plan: resolved completed 10+ days of IV abx (3) Ischemic cardiomyopathy: Plan: EF 45-50% compensated cont beta prashant therapy when able to take PO caution with IVF/PPN but thus far tolerating such (4) Afib: Plan: cont metoprolol when able to take PO HOLD Eliquis due to need for LP over this past weekend was attempting to use heparin drip in josselin of Eliquis but had gross hematuria; now on hold (5) DM2 (diabetes mellitus, type 2): Plan: BSGs very well controlled in setting of severe anorexia (6) UTI (urinary tract infection): Plan: catheter-associated UTI due to SP catheter status 2nd to [employer] (Entero) agglomerans previously on ancef then switched to rocephin completed 10+ days of Rx (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 confusion 2nd to Keytruda? obtaining LP tomorrow on 05/25 - r/o encephalitis/meningitis (8) Catheter-associated urinary tract infection: Plan: as above resolved wbc count wnl no fevers crp largely wnl (9) Acute on chronic respiratory failure with hypercapnia: Plan: has needed BIPAP on/off this admission when he is confused/delirious/lethargic he tends to have tachypnea and some increased work of breathing cont BIPAP prn most recent blood gas with acceptable parameters recheck another VBG tomorrow am for stability (10) Conjunctivitis: Plan: improving/resolved cont cipro eye drops b/l QID repeat respiratory BioFire panel was negative on 05/21/24 (11) Hematuria: Plan: suspect catheter trauma in the setting of systemic anticoagulation (heparin drip) leading to the gross hematuria heparin drip now on hold H/H stable urine clear today, 05/24/24 (12) Failure to thrive: Plan: has not eaten consistently in 10+ days thus, cont PPN appreciate pharmacy assistance with this (13) History of pulmonary embolism: Plan: is at high risk of VTE given his immobility and his stage 4 penile cancer Eliquis is on hold due to need for LP had gross hematuria on heparin drip - this is on hold resume chemical DVT proph / anticoagulation when able (14) Eosinophilia: Plan: 17% eos today on CBC w/ diff etiology uncertain significance uncertain bone marrow involvement of his penile cancer? no evidence of any drug reaction no evidence of any parasitic infection would d/w oncology this finding recheck cbc in am (15) Thrombocytopenia: Plan: mild, platelet count 120s today uncertain why it dropped - due to recent gross hematuria & consumption from such?? other cause? anaplasmosis DNA test pending but little suspicion for tick-borne illness babesia negative lyme negative consider EBV/CMV titers given minimally elevated LFTs check INR am Plan daughter updated by phone this evening she is aware of request for lumbar puncture on 05/25 I counseled his daughter that the results of LP will be very important as this will dictate further care plans appreciate pharmacy, neurology, psychiatry, oncology assistance prognosis guarded Admission and Anticipated Discharge Date Admission Date: May 10, 2024 Subjective overnight slept thru the night w/o agitation today - has slept most of the day will only briefly open eyes to his name being called gross hematuria has resolved tolerating PPN during my rounds he opened his eyes when asked where he was he said "[place] I think" followed basic commands - squeezed both hands, wiggled toes both feet, and was able to tell me he was having penile pain denied abd pain when asked about back pain he said "yes" no PO intake today - too lethargic for such Review of Systems Review of Systems: Unobtainable due to cognitive status Physical Exam Physical Exam: gen - sleeping/lethargic, snoring at times, opens eyes briefly to his name being called eyes - crusting of eyelids with conjunctival injection b/l - resolved; PERRL, pupils about 2-3mm b/l neck - no JVD mouth - MM very dry heart - irregular, rate about 100 BPM, s1 s2, no murmur lungs - decreased BS bases, no adventitious sounds ; snoring ; occasional tachypnea abd - soft NT ND BS+; SP catheter present; olmedo bag - hematuria resolved, urine is clear ext - no edema, pulses 2+ b/l musculo - moves all 4 limbs equally psych - lethargic lymph - large, firm, fixed lymph nodes L groin Results & Data Results & Data Vital Signs (Past 12 Hours) Vital Signs Temp Pulse Resp BP Pulse Ox O2 Del Method O2 Flow Rate 05/24/24 16:26 36.7 C 89 24 107/74 96 Nasal Cannula 2 05/24/24 15:11 37.1 C 107 H 24 136/93 97 Nasal Cannula 2 05/24/24 09:40 Nasal Cannula 2 Laboratory Results Laboratory Results - last 24 hr 05/23/24 05/24/24 05/24/24 19:48 05:33 07:51 WBC 6.61 RBC 4.97 Hgb 14.9 Hct 47.2 MCV 95.0 MCH 30.0 MCHC 31.6 L RDW Std Deviation 50.8 H RDW Coeff of Manuel 14.6 H Plt Count 128 L MPV 10.6 Immature Gran % (Auto) 0.6 Neut % (Auto) 56.0 Lymph % (Auto) 14.5 [place] % (Auto) 11.0 Eos % (Auto) 17.7 Baso % (Auto) 0.2 Neut # (Auto) 3.70 Lymph # (Auto) 0.96 L [place] # (Auto) 0.73 H Eos # (Auto) 1.17 H Baso # (Auto) 0.01 Immature Gran # (Auto) 0.04 Sodium 139 Potassium 4.4 Chloride 102 Carbon Dioxide 32 Anion Gap 5 BUN 25 H Creatinine 0.95 Est Cr Clr Drug Dosing 68.6 Est GFR ( Amer) 87.9 Est GFR (Non-Af Amer) 75.8 BUN/Creatinine Ratio 26.3 H Glucose 114 H POC Glucose 111 H 96 Calcium 9.6 Phosphorus 3.3 D Magnesium 1.9 05/24/24 05/24/24 11:28 16:35 WBC RBC Hgb Hct MCV MCH MCHC RDW Std Deviation RDW Coeff of Manuel Plt Count MPV Immature Gran % (Auto) Neut % (Auto) Lymph % (Auto) [place] % (Auto) Eos % (Auto) Baso % (Auto) Neut # (Auto) Lymph # (Auto) [place] # (Auto) Eos # (Auto) Baso # (Auto) Immature Gran # (Auto) Sodium Potassium Chloride Carbon Dioxide Anion Gap BUN Creatinine Est Cr Clr Drug Dosing Est GFR ( Amer) Est GFR (Non-Af Amer) BUN/Creatinine Ratio Glucose POC Glucose 105 H 105 H Calcium Phosphorus Magnesium PG Care Time/CCT Total # of Minutes Spent Total Time Spent with Patient: Total time spent is greater than 50% in coordination of care (as documented) at patient's floor/unit and/or counseling patient: Coding Level of Care Code 67852 SUB INP/OBS CARE 3/50MIN Diagnoses Acute metabolic encephalopathy G93.41 LLL pneumonia J18.9 Ischemic cardiomyopathy I25.5 Afib I48.91 DM2 (diabetes mellitus, type 2) E11.9 UTI (urinary tract infection) N39.0 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
[2024-05-25] MEDS: ARIPiprazole 5 MG TAB PO PRN (03:25)
[2024-05-25] MEDS: OLANZapine 10 MG/2.1 ML SDV IM PRN (07:53)
[2024-05-25 09:04] LABS: Base Excess VBG 9.6 mEq/L; HCO3 VBG 37 mmol/L; Oxygen Saturation VBG 83.2 %; PCO2 VBG 60 mmHg (38-50); PO2 VBG 47 mmHg
[2024-05-25 09:25] LABS: BUN Creatinine Ratio 25.7 (10-20); Creatinine Clr Calc Pharmacy 64.5 ml/min; Est GFR (African American) 81.6 ml/min; Est GFR (Non-African American) 70.4 ml/min; Magnesium 2.1 mg/dl (1.7-2.4); Phosphorus 3.6 mg/dl (2.5-4.9); Potassium 4.7 mmol/L (3.5-5.1)
[2024-05-25 09:38] LABS: INR 1.1 (0.9-1.1); Prothrombin Time 11.4 Seconds (9.0-12.0)
--- NOTE | 2024-05-25 13:13 | XRay Report ---
XR chest 1V portable CLINICAL HISTORY: tachypnea TECHNIQUE: Single frontal radiograph of the chest was obtained. Comparison: Comparison is made to chest radiograph 05/20/2024 FINDINGS: No lines and tubes are seen. Cardiomegaly is noted. The lungs are clear. No evidence of pleural effus ion or pneumothorax. IMPRESSION: No acute abnormalities and in particular no radiographic evidence of pneumonia. Stable cardiomegaly. ACT 112: Negative or not required by law. Electronically signed by: Kareem Velez M.D. 05/25/2024 1:11 PM
[2024-05-25 13:32] LABS: Base Excess VBG 8.7 mEq/L; HCO3 VBG 37 mmol/L; Oxygen Saturation VBG 79.9 %; PCO2 VBG 64 mmHg (38-50); PO2 VBG 46 mmHg; pH VBG 7.37 (7.36-7.41)
[2024-05-25] MEDS: [UNRECOGNIZED DRUG - OTHER] IV SCH (15:54)
[2024-05-25] MEDS: PERIPHERAL TPN IV SCH (15:54)
[2024-05-25] MEDS: CLINOLIPID 20% IV FAT EMULSION 250 ML IV SCH (15:58)
--- NOTE | 2024-05-26 00:41 | Communication Note ---
Date of Service: May 26, 2024
[2024-05-26 02:10] LABS: Base Excess VBG 6.3 mEq/L; HCO3 VBG 39 mmol/L; Oxygen Saturation VBG 66.6 %; PCO2 VBG 113 mmHg (38-50); PO2 VBG 40 mmHg; pH VBG 7.15 (7.36-7.41)
[2024-05-26 02:49] LABS: iSTAT Arterial Blood Gas HCO3 34 meg/L (19-24); iSTAT Arterial Blood Gas pCO2 90 mmHg (35-46); iSTAT Arterial Blood Gas pH 7.19 (7.35-7.45); iSTAT Arterial Blood Gas pO2 106 mmHg (80-95); iSTAT Carbon Dioxide 37 mmol/L (24-31); iSTAT Hematocrit 51 % (42-52); iSTAT Hemoglobin 17.3 g/dl (14.0-18.0); iSTAT Potassium 4.8 mmol/L (3.3-5.0); iSTAT Sodium 138 mmol/L (135-144)
--- NOTE | 2024-05-26 03:17 | Death Pronouncement Note ---
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 They were unresponsive to, and did not withdrawal from, verbal or tactile stimuli. They were unresponsive to corneal, pupillary, and oculocephalic reflexes. On cardiopulmonary exam, they were found to be without detectable carotid pulses, and without spontaneous heart tones or respirations. Time of was pronounced by me on 05/26/2024 at 0315. Attending physician was notified was notified. Next of kin was notified by Dr. Angel. Additional Data Confirmation of : no pulse, no respirations, no heart sounds and pupils fixed and dilated Family: contacted Attending physician: Alivia Pires MD Was code activated?: No Autopsy requested?: No
--- NOTE | 2024-05-26 06:20 | Communication Note ---
Date of Service: May 26, 2024 Around 9 PM on 05/25 instructed by nursing that patient had a BP of 199/97, pulse of 117, respiratory rate of 32. He was very lethargic but following c ommands. Then at around 11 PM patient was put on BiPAP but while doing so was not able to tolerate. Respiratory rates increased to the 60s and O2 went down in the 70s as the patient was fighting BiPAP. Patient was then placed back on oxygen with an OxyMask at 6 L and was satting in the 90s. Patient then became tachypneic with shallow breathing and more confused and lethargic. Tried to suction airway by respiratory was unsuccessful. Patient was then on 9 L and 90% around midnight. ABG was obtained and a pH of 7.19 with a CO2 of 90 was seen. Patient was placed on high flow oxygen but then started to desaturate. He was then moved back onto BiPAP. Discussed with family who are on their way to the hospital and told about the worsening condition of the patient. They decided to keep on BiPAP at this time and will consider comfort measures but wants to talk to everyone in the family. Patient continues to be lethargic not able to arouse desaturating on BiPAP. Ultimately patient succumbed to his respiratory status. note in chart.
--- NOTE | 2024-05-26 07:47 | XRay Report ---
XR chest 1V portable CLINICAL HISTORY: worsening breathing TECHNIQUE: Single frontal radiograph of the chest was obtained. Comparison: Comparison is made to chest radiograph 05/25/2024 FINDINGS: No lines and tubes are seen. Aortic valvular prosthesis is seen. Interval development of right upper lung airspace opacity. Prominence of the pulmonary vasculature is seen. Blunting of the left costophr enic angle is noted. IMPRESSION: Right upper lung airspace opacity may represent aspiration/pneumonia. There is pulmonary vascular con gestion. ACT 112: Negative or not required by law. Electronically signed by: Kareem Velez M.D. 05/26/2024 7:46 AM
--- NOTE | 2024-05-26 18:37 | Discharge Summary ---
Discharge Summary Date of Service May 26, 2024 Principal Dx & Hospital Course #1 = Principal Diagnosis (1) Acute metabolic encephalopathy: 79 y/o man with penile carcinoma on keytruda as outpatient admitted with UTI and confusion related to infection as well as oxycontin recently started as outpatient for pain control. Despite treatment of infection (UTI and later LLL pneumonia) and other complications during a prolonged hospital course he develop ed severe acute metabolic encephalopathy with waxing and waning mental status. He also was treated for hypercarbic respiratory failure with Bipap, and there was strong suspicion of underlying EILEEN. He had extensive neurologic workup including two brain MRIs the second of which was with contrast, withdrawal of sedating/delirogenic meds, treatment for B vitamin deficiencies, neurology consult. LP was attempted 05/25 however unable to be carried out because he had too much agitation and could not lie still enough for safe attempt. Suspicion of meningitis/encephalitis was low. During that day had increased respiratory difficulty, mild worsening of his persistent hypercarbia, and obstructive apneas observed so daytime bipap was restarted. Same evening he developed progressive respiratory distress, could not tolerate bipap which was tried on and off through the evening and had progressive hypoxic and hypercarbic respiratory through the evening despite trials of Bipap and high flow oxygen per nasal cannula. Family came in to bedside and wished to continue trying bipap, ultimately he did succumb to progressive respiratory failure. He was DNR/DNI per his previously stated wishes from the time of admission. 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 confusion 2nd to Keytruda? Dr Tran consulted and thought unlikely as encephalopathy related to Keytruda is rare (8) Catheter-associated urinary tract infection: (9) Acute on chronic respiratory failure with hypercapnia: needed BIPAP on/off this admission, underlying EILEEN strongly suspected (10) Conjunctivitis: treated with cipro eye drops, viral resp panel was negative (11) Hematuria: olmedo trauma, cleared (12) Failure to thrive: had not eaten consistently in 10+ days thus PPN was initiated (13) History of pulmonary embolism: is at high risk of VTE given his immobility and his stage 4 penile cancer was on apixaban, held for LP attempt (14) Eosinophilia: 17% eos on CBC w/ diff etiology uncertain significance uncertain bone marrow involvement of his penile cancer? no evidence of any drug reaction no evidence of any parasitic infection (15) Thrombocytopenia: mild, platelet count 120s anaplasmosis DNA test pending but little suspicion for tick-borne illness babesia negative lyme negative Admission HPI Per Admitting Provider Jn is a 79-year-old male with a past medical history of malignant neoplasm of the penis with multiple sites of mets including lymph node following with palliative care who presents for increased confusion Seen with daughter at bedside Increasing confusion over the last several days. Has had darkened urine output in his suprapubic catheter. Lives alone, and seems much more confused than this is normal. Has been on oxycodone long-acting every 12 hours and breakthrough oxycodone. Does not appear narcotize at the bedside but is very confused. Denies fever, chills, sweats. Endorses some chronic penile discomfort due to his cancer. They are pursuing chemotherapy with Keytruda, next infusion was due to be Friday. He denies fever, chills. Denies chest pain or shortness of breath. Endorses fatigue. No vision change. No hearing change. No focal extremity weakness Medical History: Reviewed Medications: Reviewed Surgical History: Reviewed Family history: Reviewed Allergies: Reviewed Social History: Reviewed Code Status: DNR/DNI Discharge Plan Discharge Items Patient Disposition: Other Date/Time: 05/26/24 03:15 Hospital Stay Data Consultations 05/10/24 14:45 ED Decision to Admit Stat 05/11/24 12:31 Consult Cardiology Routine 05/14/24 15:10 Consult Psychiatry Routine 05/14/24 17:35 Consult Oncology Routine 05/21/24 10:55 Consult Neurology Routine Diagnostic Imagining Performed 05/10/24 12:45 CT head/brain wo con Stat 05/12/24 09:33 MRI Brain [MR brain wo con] Urgent 05/14/24 11:02 CT Abd and Pelvis [CT abd pelvis wo con] Urgent 05/20/24 07:52 MRI Brain [MR brain wo/w con] Routine 05/22/24 22:06 CT head/brain wo con Stat Total Time Total Time Spent Total Time Spent (In Minutes): no bill Coding Level of Care Code None Diagnoses Acute metabolic encephalopathy G93.41 LLL pneumonia J18.9 Ischemic cardiomyopathy I25.5 Afib I48.91 DM2 (diabetes mellitus, type 2) E11.9 UTI (urinary tract infection) N39.0 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
[2024-05-28 13:42] LABS: CMV IgM Antibody <30.00 AU/mL
== END 2024-05-26 04:52 | disposition expired | DRG 698 ==
LOC: ED 11:57 → SUATTDRO 15:47 → 2W 17:10 → SUATTDRO 17:59 → 3E 05-21 13:20 → 2S 05-26 02:26